=== PATIENT | male | born 1955 | race Caucasian/White ===

== ENCOUNTER 2019-01-19 17:12 | Inpatient (IN) | payer OTHER, MEDICARE ==
[~2019-01-19] VITALS: Ht 182.9 cm; Wt 95.1 kg
[2019-01-19] MEDS ORDERED: ALLO300 PO (17:48)
[2019-01-19] MEDS ORDERED: Aspirin EC81 MG PO (17:48)
[2019-01-19] MEDS ORDERED: BUPR150ERA PO (17:48)
[2019-01-19] MEDS ORDERED: CARV3.125 PO (17:49)
[2019-01-19] MEDS ORDERED: LOSA50 PO (17:49)
[2019-01-19] MEDS ORDERED: MAGNESIUM OXID500 MG PO (17:49)
[2019-01-19] MEDS ORDERED: LOVA40 PO (17:49)
[2019-01-19] MEDS ORDERED: NITR.4SL SL (17:50)
[2019-01-19] MEDS ORDERED: Aldactone100 MG PO (17:50)
[2019-01-19] MEDS ORDERED: Nicoderm Cq1 EAC1 TOP (17:50)
[2019-01-19] MEDS ORDERED: ALBU90OI INH (17:51)
[2019-01-19 18:16] LABS: Source, Urine Voided
[2019-01-19 18:19] LABS: Appearance, Urine Clear (Clear); Bilirubin, Urine Neg (Neg); Blood, Urine Neg (Neg); Color, Urine Yellow (P-Yellow); Glucose Qualitative, Urine 4+ (Neg); Ketones, Urine Neg (Neg); Leukocyte Esterase, Urine Neg (Neg); Nitrite, Urine Neg (Neg); Protein, Urine Neg (Neg); Urobilinogen, Urine NORM (Normal)
[2019-01-19 18:33] LABS: U Amphetamine Screen DETECTED; U Barbituate Screen Not Detected; U Benzodiazapine Screen Not Detected; U Buprenorphine Screen Not Detected; U Cannabinoids Screen DETECTED; U Cocaine Screen Not Detected; U Methadone Screen Not Detected; U Methamphetamine Screen DETECTED; U Opiates Screen Not Detected; U Oxycodone Screen Not Detected; U Phencyclidine Screen Not Detected; U Propoxyphene Screen Not Detected
[2019-01-19 19:04] LABS: BASOPHILS ABSOLUTE AUTO 0.01 K/mm3 (0.00-0.23); BASOPHILS PERCENT AUTO 0 % (0-2); EOSINOPHILS ABSOLUTE AUTO 0.01 K/mm3 (0.00-0.68); EOSINOPHILS PERCENT AUTO 0 % (0-6); Hematocrit 38.8 % (37.0-53.0); Hemoglobin 13.1 g/dL (13.5-17.5); IMMATURE GRAN ABSOLUTE AUTO 0.18 K/mm3 (0.00-0.10); IMMATURE GRAN PERCENT AUTO 2 % (0-1); LYMPHOCYTES ABSOLUTE AUTO 0.43 K/mm3 (0.84-5.20); LYMPHOCYTES PERCENT AUTO 4 % (21-46); MONOCYTES ABSOLUTE AUTO 0.42 K/mm3 (0.16-1.47); MONOCYTES PERCENT AUTO 4 % (4-13); Mean Corpuscular HGB 37.1 pg (26.0-34.0); Mean Corpuscular HGB Conc 33.8 g/dL (31.5-36.5); Mean Corpuscular Volume 110 fL (80-100); NEUTROPHILS ABSOLUTE AUTO 10.23 K/mm3 (1.96-9.15); NEUTROPHILS PERCENT AUTO 91 % (41-73); NRBC ABSOLUTE 0.02 K/mm3 (0.00-0.02); NRBC Auto 0.2 /100 WBC (0.0-0.2); RDW Coefficient Variation 14.4 % (11.7-14.2); RDW Standard Deviation 58.8 fL (35.1-46.3); Red Blood Cell Count 3.53 M/mm3 (4.30-5.90); White Blood Cell Count 11.28 K/mm3 (4.00-11.30)
[2019-01-19 19:12] LABS: Platelet Count 239 K/mm3 (150-400)
[2019-01-19 19:16] LABS: Ethanol (Alcohol), Blood, Med <3 mg/dL; Free Thyroxine 0.96 ng/dL (0.70-1.60)
[2019-01-19 19:19] LABS: Alanine Aminotransfer (ALT/SGP 48 U/L (12-78); Albumin, Blood 2.2 g/dL (3.4-5.0); Albumin/Globulin Ratio 0.7 (0.8-1.8); Alk Phos 213 U/L (50-136); Anion Gap 8 mmol/L (6-16); Aspartate Aminotrans (AST/SGOT 28 U/L (12-37); Bilirubin, Total 0.4 mg/dL (0.1-1.0); Blood Urea Nitrogen 18 mg/dL (8-24); Bun/Creatinine Ratio 23.7 (12.0-20.0); CO2, Blood 32 mmol/L (21-32); Calcium, Blood 8.5 mg/dL (8.5-10.1); Chloride, Blood 99 mmol/L (98-108); Creatinine, Blood 0.76 mg/dL (0.60-1.20); Globulin, Blood 3.1 g/dL (2.2-4.0); Glomerular Filtration Rate >60 (60-); Glucose, Blood 495 mg/dL (70-99); Potassium, Blood 3.1 mmol/L (3.5-5.5); Sodium, Blood 139 mmol/L (136-145); Thyroid Stimulating Hormone 0.487 uIU/mL (0.360-4.800); Total Protein, Blood 5.3 g/dL (6.4-8.2)
[2019-01-19 22:03] LABS: Troponin I 0.177 ng/mL (0.000-0.040)
--- NOTE | 2019-01-19 22:23 | NUR ---
ADMIT/ASSESSMENT PT ADMITTED TO ICU 10 VIA ER. ARRIVED VIA GURNEY. PT AWAKE AND ANSWERING QUESTIONS. TRANSFERED TO BED BY STAFF WITH SLIDER SHEET. LUNGS DECREASED THROUGHOUT ON 2 LITERS O2 VIA NC. HEART RATE REGULAR. BP HYPERTENSIVE. ANASARCA NOTED WITH LOWER EXT RED AND WARM TO TOUCH. WEEPING NOTED TO LEFT LOWER EXT. WOUND NOTED TO RIGHT ABD. SEE WOUND PHOTOS. IV 18G TO RIGHT AC AND 20G TO LEFT AC SALINE LOCKED. INSULIN GTT TO BE STARTED. PT ANSWERING QUESTIONS, VOICE QUIET.
[2019-01-20 00:31] LABS: International Normalized Ratio 0.87; Prothrombin Time Results 9.3 Sec (9.7-11.5)
[2019-01-20 00:43] LABS: PCO2 Arterial 44.8 mmHg (35-45); PO2 Arterial 82.6 mmHg (80-100); pH Blood Arterial 7.54 (7.35-7.45)
--- NOTE | 2019-01-20 00:43 | NUR ---
HTN BP 175/109 MAP 139 HEART RATE 90, PT MED WITH HYDRALAZINE 10 MG
--- NOTE | 2019-01-20 02:06 | NUR ---
HTN/CALL TO MD DR JOHNSON NOTIFIED REGARDING BP 187/124 WITH HEART RATE 98. RECEIVED ORDERS FOR LABETOLOL AND METOPROLOL.
[2019-01-20 02:09] LABS: Adenovirus Not Detected (NOT DETECT); Coronavirus 229E Not Detected (NOT DETECT); Coronavirus HKU1 Not Detected (NOT DETECT); Coronavirus NL63 Not Detected (NOT DETECT)
[2019-01-20 02:10] LABS: Bordetella pertussis Not Detected (NOT DETECT); Chlamydophila pneumoniae Not Detected (NOT DETECT); Coronavirus OC43 Not Detected (NOT DETECT); Human Metapneumovirus Not Detected (NOT DETECT); Human Rhinovirus/Enterovirus Not Detected (NOT DETECT); Influenza A Not Detected (NOT DETECT); Influenza A/2009-H1 Not Detected (NOT DETECT); Influenza A/H1 Not Detected (NOT DETECT); Influenza A/H3 Not Detected (NOT DETECT); Influenza B Not Detected (NOT DETECT); Mycoplasma pneumoniae Not Detected (NOT DETECT); Parainfluenza Virus 1 Not Detected (NOT DETECT); Parainfluenza Virus 2 Not Detected (NOT DETECT); Parainfluenza Virus 3 Not Detected (NOT DETECT); Parainfluenza Virus 4 Not Detected (NOT DETECT); Respiratory Syncytial Virus Not Detected (NOT DETECT)
--- NOTE | 2019-01-20 04:29 | NUR ---
CALL TO MD CALL TO DR JOHNSON REGARDING INCREASED SOB, LUNGS WITH EXP WHEEZES/CRACKLES AND INCREASED WORK OF BREATHING. RECEIVED ORDER FOR LASIX ONE TIME
[2019-01-20 04:53] LABS: Hematocrit 40.4 % (37.0-53.0); Hemoglobin 13.7 g/dL (13.5-17.5); Mean Corpuscular HGB 37.4 pg (26.0-34.0); Mean Corpuscular HGB Conc 33.9 g/dL (31.5-36.5); Mean Corpuscular Volume 110 fL (80-100); Mean Platelet Volume 10.8 fL (9.1-12.4); NRBC ABSOLUTE 0.02 K/mm3 (0.00-0.02); NRBC Auto 0.2 /100 WBC (0.0-0.2); Platelet Count 182 K/mm3 (150-400); RDW Coefficient Variation 14.1 % (11.7-14.2); RDW Standard Deviation 57.7 fL (35.1-46.3); Red Blood Cell Count 3.66 M/mm3 (4.30-5.90); White Blood Cell Count 13.06 K/mm3 (4.00-11.30)
--- NOTE | 2019-01-20 05:01 | NUR ---
CONDOM CATH APPLIED AND PT MED WITH LASIX 60 MG IV. ATTENDS CHANGED. PT INCONT OF URINE
[2019-01-20 05:25] LABS: Alanine Aminotransfer (ALT/SGP 43 U/L (12-78); Albumin, Blood 2.3 g/dL (3.4-5.0); Albumin/Globulin Ratio 0.7 (0.8-1.8); Alk Phos 168 U/L (50-136); Anion Gap 8 mmol/L (6-16); Aspartate Aminotrans (AST/SGOT 25 U/L (12-37); Bilirubin, Total 0.3 mg/dL (0.1-1.0); Blood Urea Nitrogen 17 mg/dL (8-24); Bun/Creatinine Ratio 23.4 (12.0-20.0); CO2, Blood 33 mmol/L (21-32); CPK Creatine Kinase 46 U/L (39-308); Calcium, Blood 8.2 mg/dL (8.5-10.1); Chloride, Blood 101 mmol/L (98-108); Creatinine, Blood 0.73 mg/dL (0.60-1.20); Globulin, Blood 3.2 g/dL (2.2-4.0); Glomerular Filtration Rate >60 (60-); Glucose, Blood 286 mg/dL (70-99); Potassium, Blood 3.4 mmol/L (3.5-5.5); Sodium, Blood 142 mmol/L (136-145); Total Protein, Blood 5.5 g/dL (6.4-8.2)
--- NOTE | 2019-01-20 06:35 | NUR ---
SHIFT SUMMARY PT ADMITTED TO ICU 10 VIA ER. PT STARTED ON INSULIN GTT DUE TO BLOOD GLUCOSE IN THE 400'S. CURRENTLY INSULIN UP TO 8 UNITS/HR DUE TO BLOOD GLUCOSE UP TO 300. PT MED WITH HYDRALAZINE, LABETOLOL, AND METOPROLOL DUE TO HTN. LUNGS WITH EXP WHEEZES AND CRACKLES AND PT C/O SOB WHILE ON 2 LITERS O2 VIA NC. MED WITH LASIX 60 MG. CONDOM CATH PLACED. ANASARCA NOTED. WOUNDS TO RIGHT ABD AND LEFT LOWER LEG WITH FOAM DRSG ON. PT TAKING ICE CHIPS. REPORT TO ON COMING NURSE
--- NOTE | 2019-01-20 07:15 | NUR ---
BEGINNING OF SHIFT Assumed care of pt at 0700. Report received from Lorna LAGUNAS. Pt on 2 LPM NC. States he does not typically wear O2 at home. SpO2 97-99%. Pt on insulin drip at 8 units/hr. Sinus rhythm per monitor with occasional PVCs. 4+ edema noted to all extremities. Condom catheter in place.
--- NOTE | 2019-01-20 08:58 | NUR ---
CALL PLACED TO DR IBARRA Asked provider about long acting insulin as there is none ordered for the patient. New orders to be entered by provider. Pharmacist, Abram, asked this RN to clarify levaquin and see if it may be discontinued as it adds no additional coverage considering patient is on vancomycin and cefipime. New orders given.
--- NOTE | 2019-01-20 09:00 | NUR ---
DECISION MAKER This RN asks pt who he would like to make decisions for him if he is unable to make his own healthcare decisions. Pt states he would like his daughter, Laina, to make decisions for him if he is unable to do so. This RN inquired where Laina lives, pt states she may live in [place], "I think". Pt states he is not close with his daughter because "She is mad at me for something." This RN inquires why daughter is mad at him and he states "I don't know."
--- NOTE | 2019-01-20 09:25 | NUR ---
STAT ABG Called Dr Sultana to notify provider that pt has had a mentation change. Pt is A&O x 1. Forgets that he is in [place] instead of [place]. Pt has trouble stating correct month and year. After about 5 minutes about, pt guesses March 2018. This RN notified RT Jaki of stat ABG
--- NOTE | 2019-01-20 09:45 | NUR ---
DR IBARRA AT BEDSIDE Plans to DC insulin drip one hour after giving subcutaneous insulin. Pt to be on low sliding scale. Provider stated that indwelling mroales may be placed for strict I&O. BiPAP disucussed with pt. Pt agreeable to try it. Pt tolerating BiPAP well at this time. Discussed if tourist information officer consultation would be appropriate. No orders for tourist information officer consultation at this time.
[2019-01-20 09:51] LABS: PCO2 Arterial 41.5 mmHg (35-45); PO2 Arterial 57.2 mmHg (80-100); pH Blood Arterial 7.59 (7.35-7.45)
--- NOTE | 2019-01-20 11:00 | NUR ---
UPDATE Cardiology consult notified. Dr Comer states plan to see pt soon. Pt has not had any active chest pain. Hardy catheter placed. Pt educated on reason for insertion. Pt nods head to indicate understanding. Pt more alert than previously noted. JANNETH Middleton in room to place powerglide midline catheter.
--- NOTE | 2019-01-20 11:08 | NUR ---
ECHOCARDIOGRAM COMPLETED
--- NOTE | 2019-01-20 11:18 | NUR ---
UPDATE Call placed to Dr Sultana to notify provider of difficulty obtaining IV access. IV placed by charge nurse no longer patent. Midline RN unable to successfully place midline. Provider states PICC may be placed. Provider states pt may also have diet after cardiology consults.
--- NOTE | 2019-01-20 14:55 | NUR ---
UPDATE / RECORDS REQUEST Pt refuses to keep BiPAP on. Pt has worn BiPAP for total of 1.5 hours. Pt resting in bed at this time. Hydralyzine given for hypertension. Any existing echocardiogram and angiogram reports requested from [facility].
--- NOTE | 2019-01-20 16:42 | NUR ---
Spiritual Care inital visit: Mr. Rock is angry and irrational. "I don't want to live like this." "I just want to go to sleep and not wake up." He beleives he has been told he cannot have anything to drink and is quite angry about this. His conversation is peppered with profanity and he had little use for me since I could not provide a beverage. He says he has a dtr, but lives alone. I was tasked to speak to him regarding ACP. However he does not appear to be able to understand the implications of code status, MPOA, or medical heroics. Director Of Assessment services will remain available.
--- NOTE | 2019-01-20 16:52 | NUR ---
DR BELL IN TO SEE PT Provider at bedside 1600. Medical records from [facility] reviewed by provider. Discussed hypertension, hypokalemia, and mentation. Provider states she will discuss case with Dr Sultana. New orders received from Dr Sultana for head CT. This RN spoke to batch room technician, states they will send transporter MCKAYLA.
[2019-01-20 16:55] LABS: Source, Urine Catheter
[2019-01-20 17:08] LABS: Bilirubin, Urine Neg (Neg); Blood, Urine 1+ (Neg); Glucose Qualitative, Urine Neg (Neg); Ketones, Urine Neg (Neg); Leukocyte Esterase, Urine Neg (Neg); Nitrite, Urine Neg (Neg); Protein, Urine Neg (Neg); Specific Gravity, Urine 1.005 (1.003-1.022); Urobilinogen, Urine NORM (Normal)
[2019-01-20 17:40] LABS: Appearance, Urine Clear (Clear); Color, Urine Yellow (P-Yellow)
--- NOTE | 2019-01-20 17:45 | NUR ---
UPDATE: SOCIAL SERVICE AND PALLIATIVE CARE CONSULTS PLACED Transporter at bedside 1700. Pt adamantly refused head CT. Pt upset, yelling profanities. States he would like to speak to his daughter. This RN dialed daughter's phone number for pt. Pt spoke to daughter and then daughter, Laina, requested to speak to this RN. Update provided. When asked about pt's current living situation, she states that on Thursday, she visited pt because he told her he was "stuck on a boat". Upon visiting his house, she states he was naked, sitting on a piece of wood because he no longer has a mattress. She states she is concerned about pt's ability to take care of himself, despite visits from home health nurse. She states that he typically drinks several "fifths" of liquor per week. He uses alcohol daily. She states that pt may not have had any alcohol since his previous hospitalization, two weeks ago. She states that the people that supply alcohol to the patient stated they quit supplying him with alcohol. This RN inquired about recreational drug use, she states she isn't sure. She acknowledges that during previous hospitalizations, pt has tested positive for amphetamines previously and she believes this was before he was prescribed bupropion. She states that she does not know much about the patient as she sees him "once a month to take him grocery shopping". She states the patient has a son, who he has not seen in over 10 years. Information about substance abuse given to Dr Sultana. No orders given for CIWA, as pt is not showing signs of withdrawal at this time. Will continue to assess for withdrawal. Pt's daughter states that to her knowledge, pt does not have an advanced directive or POLST. Pt claims to be [facility]. This RN contacted [facility] and [facility] to inquire about advanced directive or POLST; both facilities stated that pt is not in their system. She states that pt has previously verbalized that he would not want to be intubated and he has been DNR during a previous hospitalization, but full code during others. Case discussed with Lorna LAGUNAS of palliative care. States she will speak to daughter. Pt remains full code at this time.
[2019-01-20 17:47] LABS: Red Blood Cells, Urine 0-2 /hpf (0-2); White Blood Cells, Urine Rare /hpf (0-5)
[2019-01-20 17:48] LABS: Bacteria Few /hpf; Hyaline Casts 0-2 /lpf (0-2); Squamous Epithelial Cells Few /hpf (Few)
--- NOTE | 2019-01-20 17:51 | NUR ---
Spiritual Care note: T/C to pt's dtr, Laina [phone]. She states that her dad has been telling her that he is unhappy in his life, tired of being sick, and wishes he could . She also states that he has become more and more confused and unable to care for himself. If pt does not clear-up mentally, Laina would like him placed somewhere. She also asked that we make him a DNR. I informed her that without documentation stating his wishes, pt will remain Full Code until he can speak for himself, or if he physically declines, or it becomes clear that he will not regain mental clarity. Laina understood. She will contact [facility] to see if her dad has ACP on file.
--- NOTE | 2019-01-20 18:36 | NUR ---
SUMMARY At this time, pt is A&O x 2. Remains on 2 LPM NC. Attempted to titrate to room air, however pt unable to maintain SpO2 90% or greater. Pt wore BiPAP for about 1.5 hours today and has refused BiPAP since. Hardy catheter in place for strict I&O. Pt has had over 4 L of output this shift. SR per monitor. Few PVCs noted. Pt repeatedly verbalizing that he wants "a natural ". Franklin RN from palliative care speaking with patient at this time. This RN updated Dr Sultana about conversations had with patient. Provider stated pt may be DNR if he states that is what he wants.
--- NOTE | 2019-01-20 18:59 | NUR ---
Visited with Pt this evening. Pt is A&OX2 and reports arthritis pain in bilateral hands. When asked place Pt states he is at [facility] in [place]. Asked reason for hospital stay and Pt could not answer. Pt does respond appropriate to current year. Pt is nonsensical intermittently and approriate in other moments. Difficult to understand speech due to slurring. Listened as Pt expresses frustration with his life and attempts to hold back tears. Offered emootional support and validated concerns. Pt appears to be frustrated with his life. Pt reports that he will not wear the BIPAP. Educated on consequences of not wearing BIPAP if needed. Pt's appears to understand consequences but still is questionable. When asked why he states "I'm not worthy". Pt appears to have pysch/soc issues and may benefit from counseling when mentation clears up. Discussion was made about ability to care for himself and Pt agrees he is unable to care for himself. Pt reports feeling tired and wants to sleep. He is agreeable for palliative care to F/U. Spoke with bedside nurse Jamilah and discussed case. Palliative Care will remain available.
--- NOTE | 2019-01-20 21:20 | NUR ---
START OF SHIFT: REPORT FROM LINDA LAGUNAS. PT EATING EVENING MEAL. FRIEND AT BEDSIDE. PT AGREED TO CT. CT AVAILABLE AT 2099. PT TAKEN AT [address] AT 2121. PT STATED IT WAS BETTER THAN HE THOUGHT. PT IN ROOM CURRENTLY, FALLIN ASLEEP. VSS.
--- NOTE | 2019-01-21 00:09 | NUR ---
V-TACH: PT WAS SLEEPING. HAD A RUN OF 40-BEAT V-TACH. PT STATED HE WOKE UP SUDDENLY BUT IS DENYING CP NOR SOB. PT CURRENTLY WATHCING TV. DR. KWONG NOTIFIED. NO NEW ORDERS AT THIS TIME. CONTINUE MONITORING PT.
--- NOTE | 2019-01-21 00:38 | NUR ---
PT REQUEST TO, "SIT UP STRAIGHT". PT REPOSITIONED INTO HIGH FOWLERS. PT STATED THAT HIS EYES ARE BLURRY AND STATED THEY HAVE BEEN ALL DAY TODAY. PT ABLE TO COUNT CORRECTLY FINGERS HELD UP 8 FEET AWAY. JUDSON, PT TRACKING WNL. PT ASKED IF HE NOTICED IF HIS FRIEND MARCOS WAS BLURRY TODAY, PT STATED, "THAT GIRL IS ALWAYS BLURRY". PT STATED, "THEY MAY HAVE BEEN BLURRY FOR A LONG TIME BUT I'M JUST NOW NOTICING. WILL CONTINUE TO MONITOR. PT WITH CALL LIGHT IN HAND WATCHING TV.
--- NOTE | 2019-01-21 02:02 | NUR ---
PT C/O INSOMNIA. DESCRIBES IT A FEELING OF PASSING OUT AND WAKING UP. PT STATED HE WAKES UP SUDDENLY WITH FEAR AND IS SEEING FLASHING LIGHTS. DISCUSSED WITH PT HIS BUPROPION INTAKE AND PT STATED THAT HE HAS BEEN TAKING IT EVERY DAY AND HAS HIS BOTTLE AT HOME. PT STATED HAS NOT HAD HIS BUPROPIO FOR 3-4 MAYBE MORE DAYS. CALL OUT TO HOSPITALIST.
--- NOTE | 2019-01-21 02:14 | NUR ---
CALL BACK FROM DR. KWONG. BUPROPION WAS NOT ORDERED ON ADMIT R/T PT BEING LETHARGIC. NEW ORDERS TO RESTART BUPROPION AND DIPHENHYDRAMINE 25mg AT BEDTIME FOR SLEEP.
--- NOTE | 2019-01-21 03:19 | NUR ---
PT FELL ASLEEP PRIOR TO BUPROPRION "NOW" DOSE AND BENEDRYL AVAILABLE. WILL ADMINISTER WHEN PT AWAKENS. VSS.
[2019-01-21 04:44] LABS: BASOPHILS ABSOLUTE AUTO 0.02 K/mm3 (0.00-0.23); BASOPHILS PERCENT AUTO 0 % (0-2); EOSINOPHILS PERCENT AUTO 0 % (0-6); Hematocrit 39.2 % (37.0-53.0); Hemoglobin 13.3 g/dL (13.5-17.5); IMMATURE GRAN ABSOLUTE AUTO 0.27 K/mm3 (0.00-0.10); IMMATURE GRAN PERCENT AUTO 2 % (0-1); LYMPHOCYTES ABSOLUTE AUTO 0.48 K/mm3 (0.84-5.20); LYMPHOCYTES PERCENT AUTO 4 % (21-46); MONOCYTES ABSOLUTE AUTO 0.34 K/mm3 (0.16-1.47); MONOCYTES PERCENT AUTO 3 % (4-13); Mean Corpuscular HGB 37.8 pg (26.0-34.0); Mean Corpuscular HGB Conc 33.9 g/dL (31.5-36.5); Mean Corpuscular Volume 111 fL (80-100); Mean Platelet Volume 10.3 fL (9.1-12.4); NEUTROPHILS ABSOLUTE AUTO 12.31 K/mm3 (1.96-9.15); NEUTROPHILS PERCENT AUTO 92 % (41-73); NRBC ABSOLUTE 0.04 K/mm3 (0.00-0.02); NRBC Auto 0.3 /100 WBC (0.0-0.2); Platelet Count 215 K/mm3 (150-400); RDW Standard Deviation 57.4 fL (35.1-46.3); Red Blood Cell Count 3.52 M/mm3 (4.30-5.90); White Blood Cell Count 13.42 K/mm3 (4.00-11.30)
[2019-01-21 05:04] LABS: Alanine Aminotransfer (ALT/SGP 40 U/L (12-78); Albumin, Blood 2.2 g/dL (3.4-5.0); Albumin/Globulin Ratio 0.7 (0.8-1.8); Alk Phos 121 U/L (50-136); Anion Gap 4 mmol/L (6-16); Aspartate Aminotrans (AST/SGOT 18 U/L (12-37); Bilirubin, Total 0.4 mg/dL (0.1-1.0); Blood Urea Nitrogen 25 mg/dL (8-24); Bun/Creatinine Ratio 29.1 (12.0-20.0); CHOL/HDL RATIO 2.2; CO2, Blood 38 mmol/L (21-32); Calcium, Blood 7.5 mg/dL (8.5-10.1); Chloride, Blood 97 mmol/L (98-108); Cholesterol 117 mg/dL (50-200); Creatinine, Blood 0.86 mg/dL (0.60-1.20); Globulin, Blood 3.2 g/dL (2.2-4.0); Glomerular Filtration Rate >60 (60-); Glucose, Blood 247 mg/dL (70-99); HDL Cholesterol 52 mg/dL (>39); LDL/HDL RATIO 0.8; Low Density Lipoprotein Chol 39 mg/dL (0-110); Magnesium, Blood 1.8 mg/dL (1.6-2.4); Potassium, Blood 2.8 mmol/L (3.5-5.5); Sodium, Blood 139 mmol/L (136-145); Total Protein, Blood 5.4 g/dL (6.4-8.2); Triglycerides 130 mg/dL (30-160); Very Low Density Lipoprot Chol 26 mg/dL (6-32)
--- NOTE | 2019-01-21 05:54 | NUR ---
UPDATE: PT AWAKENED APPRX AT 0400 STATING, "I MUST HAVE SLEPT GOOD". PT GIVEN AM DOSE BUPROVION. VSS. DR. ARENAS NOTIFIED AND GIVEN LAB VALUES. NEW ORDERS FOR KCL IVPB 40 mEq AND Mg+ 2g WHICH HAVE BEEN STARTED. PT WITH SEVERAL QUESTIONS RE: MANAGING HIS DIABETES AND POSSIBLY GOING TO A, "REHAB FACIITY". PT VOICED CONCERN OF NOT BEING ABLE TO REMEMBER ANYTHING. PT ENCOURAGED TO LISTEN CAREFULLY WHEN BEGING GIVEN HIS DC INSTRUCTIONS. PT CURRENTLY DOSING ON AND OFF WATCHING TV. WILL CONTINUE TO MONITOR AND WILL REPORT OFF TO DAY RN.
--- NOTE | 2019-01-21 07:55 | NUR ---
ASSUMED CARE: REPORT RECEIVED FROM KATHY Goyal RN. ASSUMED CARE OF THIS PT AT APPROX 0700. ON ASSESSMENT, THE PT IS RESTING QUIETLY. HE AWAKENS EASILY, IS A&O TO SELF, PLACE & FOLLOWING DIRECTION. HE IS FORGETFUL REGARDING THE CIRCUMSTANCES SURROUNDING HIS ADMISSION. LS ARE CLEAR, DIM IN BASES. O2 SATS > 90% ON 2L NC. PT DOES NOT WEAR O2 AT HOME. MONITOR SHOWS SR W/ HR 70-80s. HTN, MEDS PER EMAR. PT HAS NO GI COMPLAINTS, STS BEING HUNGRY & IS TOLERATING PO INTAKE WELL. CACERES CATH REMAINS IN PLACE FOR STRICT I&O DURING DIURESIS, PATENT/ DRAINING. PT STS EDEMA IS "LOOKING BETTER," PITTING EDEMA NOTED TO ALL EXT. WILL CONTINUE TO MONITOR & UPDATE NEEDED.
--- NOTE | 2019-01-21 14:19 | NUR ---
DR RUBIO: PROVIDER AT BEDSIDE TO SEE PT. HE IS VERY DROWSY & DOES NOT AWAKEN COMPLETELY TO HER VISIT. PT's CARDIAC MEDS HAVE BEEN DISCUSSED REGINALDO CARRASQUILLO, INDICATES THAT METOPROLOL SUCCINATE IS GENERALLY USED FOR PT's W/ HF, VERSUS METOPROLOL TARTRATE THAT THE PT IS RECEIVING. DR RUBIO STS SHE WILL MAKE CHANGES TO PT's CARDIAC MEDS & THAT THE PT IS APPROPRIATE TO BE MED W/ TELE STATUS. WILL CONTINUE TO MONITOR & UPDATE NEEDED.
--- NOTE | 2019-01-21 18:36 | NUR ---
DR RUBIO / SHIFT SUMMARY: CALL TO PROVIDER TO NOTIFY HER THAT PT's CBG READINGS HAVE CONTINUED TO INCREASE T/O SHIFT DESPITE LSS INSULIN COVERAGE. PROVIDER HAS PLACED ORDERS TO INCREASE LANTUS DOSE & INCREASE SS COVERAGE TO PING. NO ACUTE CHANGES SINCE ASSUMING CARE. PT REMAINS A&O TO SELF, FAMILY & FOLLOWING DIRECTION. FORGETFUL TO LOCATION & TIME. LS ARE DIM IN BASES, O2 SATS > 92% ON 2L NC. MONITOR SHOWS SR W/ HR 70-80s, HTN PERSISTS BUT IMPROVED OVERALL. PT HAS SAT UP IN CHAIR FOR APPROX 2 HRS THIS EVENING, STS FEELING FATIGUED. TX W/ FWW, GAIT BELT & 2 STAFF ASSIST. NO GI COMPLAINTS, PT HAS GOOD APPETITE. CACERES PATENT/ DRAINING. SKIN OVERALL CDI. WILL CONTINUE TO MONITOR & REPORT OFF TO ONCOMING RN.
--- NOTE | 2019-01-21 22:22 | NUR ---
ASSUMED CARE OF PT, REPORT RCV'D FROM JANNETH HENDRICKSON. PT SLEEPING, AWAKES TO VERBAL STIMULI. PT ALERT AND ORIENTED X4, COOPERATIVE WITH CARE. PT CURRENTLY ON 2L NC WITH SATS IN THE LOW-MID 90'S. PT REFUSES BIPAP D/T HX OF PTSD AND CLAUSTROPHOBIA. PT EDEMETOUS BUE 3+ R>L AND BLE, PER PT AND DAYSHIFT NURSE EDEMA IS MUCH IMPROVED. PT'S ABDOMEN SEVERELY DISTENDED AND FIRM. PT DENIES PAIN WITH PALPATION AND STATES DISTENTION IS "NORMAL". WOUND ON RIGHT ABDOMEN UPON ADMISSION, PT DENIES NEEDS AT THIS TIME. SEE FULL SHIFT ASSESSMENT.
[2019-01-21 23:50] LABS: Vancomycin, Trough 20.7 ug/mL (5.0-10.0)
[2019-01-22 05:55] LABS: BASOPHILS ABSOLUTE AUTO 0.02 K/mm3 (0.00-0.23); BASOPHILS PERCENT AUTO 0 % (0-2); EOSINOPHILS PERCENT AUTO 0 % (0-6); Hematocrit 38.7 % (37.0-53.0); Hemoglobin 13.3 g/dL (13.5-17.5); IMMATURE GRAN ABSOLUTE AUTO 0.34 K/mm3 (0.00-0.10); IMMATURE GRAN PERCENT AUTO 3 % (0-1); LYMPHOCYTES ABSOLUTE AUTO 0.54 K/mm3 (0.84-5.20); LYMPHOCYTES PERCENT AUTO 5 % (21-46); MONOCYTES PERCENT AUTO 4 % (4-13); Mean Corpuscular HGB 37.9 pg (26.0-34.0); Mean Corpuscular HGB Conc 34.4 g/dL (31.5-36.5); Mean Corpuscular Volume 110 fL (80-100); Mean Platelet Volume 10.5 fL (9.1-12.4); NEUTROPHILS PERCENT AUTO 88 % (41-73); NRBC ABSOLUTE 0.04 K/mm3 (0.00-0.02); NRBC Auto 0.3 /100 WBC (0.0-0.2); Platelet Count 241 K/mm3 (150-400); RDW Coefficient Variation 13.8 % (11.7-14.2); RDW Standard Deviation 55.8 fL (35.1-46.3); Red Blood Cell Count 3.51 M/mm3 (4.30-5.90)
--- NOTE | 2019-01-22 05:56 | NUR ---
SHIFT SUMMARY PT SLEPT MAJORITY OF THE NIGHT WITH NO COMPLAINTS. AT 0530 PT BEGAN COMPLAINING OF FEELING "DIZZY" AND "SHORT OF BREATH", PER CHARGE NURSE, PT HAD SIMILAR EXPERIENCE DURING THE PREVIOUS NIGHTSHIFT WITH NO IDENTIFIABLE CAUSE. PT'S O2 SATS 95% ON ROOM AIR, LUNG SOUNDS CLEAR T/O WITH DIM BASES-UNCHANGED SINCE BEGINNING OF SHIFT. BP 147/80, RR 16-20, AFEBRILE . CBG 348. 1200 ML CLEAR YELLOW URINARY OUTPUT WITH 418 IN, PT REMAINS -1583 FLUID BALANCE. WILL REPORT TO DAYSHIFT NURSE.
[2019-01-22 06:15] LABS: Albumin, Blood 2.3 g/dL (3.4-5.0); Anion Gap 8 mmol/L (6-16); Blood Urea Nitrogen 31 mg/dL (8-24); Bun/Creatinine Ratio 38.5 (12.0-20.0); CO2, Blood 34 mmol/L (21-32); Calcium, Blood 7.6 mg/dL (8.5-10.1); Chloride, Blood 97 mmol/L (98-108); Creatinine, Blood 0.81 mg/dL (0.60-1.20); Glomerular Filtration Rate >60 (60-); Glucose, Blood 322 mg/dL (70-99); Potassium, Blood 2.7 mmol/L (3.5-5.5); Sodium, Blood 139 mmol/L (136-145)
--- NOTE | 2019-01-22 06:39 | NUR ---
PT APPEARS TEARY AND EMOTIONAL. PT REPORTS THAT HE IS STILL FEELING SOB. WHEN ASKED IF HE DRINKS ALCOHOL AT HOME PT REPLIED "I WAS THINKING ABOUT THAT", PT REPORTS THAT HE DRINKS "ABOUT A HALF OF A FIFTH OF WHISKEY" DAILY. WILL CALL HOSPITALIST AND INITIATE CIWA MONITORING.
--- NOTE | 2019-01-22 08:00 | NUR ---
INITIAL ASSESSMENT PATIENT ALERT AND ORIENTED X 4, AFEBRILE. PATIENT VERY ANXIOUS, AGITATED, DIAPHORETIC, RESTLESS UPON FIRST COMING INTO THE ROOM. PATIENT DRINKS A [address]TH [address] DAILY[address] RUBIO INFORMED AND CIWA PROTOCOL INITIATED. PATIENT GIVEN PRN ATIVAN AND LIBRUIM. PATIENT ALREADY MUCH MORE RELAXED AND CALM. PATIENT DOES HAVE GARBLED SPEECH. PATIENT CIWA SCORE OF 16. PATIENT DOES NOT HAVE ANY COMPLAINTS OF PAIN AT THIS TIME. PATIENT DECREASED FROM 2 L NC TO RA AND REMAINS SATTING 90% AND GREATER ON RA. LUNGS CLEAR IN RUL, DIMINISHED IN RML AND RLL. KATIE COARSE WITH EXPIRATORY WHEEZE, LLL COARSE TO AUSCULTATION. PATIENT DYSPNEIC ON EXERTION. PATIENT IN SR WITH PVCS AND PROLONGED QT. HR IN THE 70S. SBP 160S TO 170S. ABDOMEN SEVERELY DISTENDED AND FIRM- PATIENT REPORTS THIS NORMAL FOR HIM. NORMOACTIVE BS NOTED. LAST BM DOCUMENTED TWO DAYS AGO. PATIENT HUNGRY WHENEVER HE IS AWAKE. CACERES IN PLACE, DRAINING YELLOW COLORED URINE WITH SEDIMENT NOTED. ANASARCA NOTED. RUE AND ABDOMEN WEEPING. WOUND TO R ABDOMEN. SKIN IS FLUSHED AND KRYSTIN. NS TKO. BED LOW, CALL LIGHT IN REACH. WILL CONTINUE TO MONITOR PATIENT FREQUENTLY THROUGHOUT SHIFT.
[2019-01-22 08:51] LABS: Vancomycin, Trough 27.2 ug/mL (5.0-10.0)
--- NOTE | 2019-01-22 11:05 | NUR ---
DR. RUBIO UPDATED THIS AM ON PATIENT ETOH WITHDRAWAL SYMPTOMS- OF PATIENT BECOMING VERY ANXIOUS, AGITATED, TREMORS FELT WHEN TOUCHED, THAT PATIENT DIAPHORETIC. INFORMED THAT PATIENT STATES HE DRINKS A 5TH OF WHISKEY DAILY. INFORMED THAT PATIENT HAS BEEN HYPERTENSIVE. ORDERS PLACED FOR CIWA PROTOCOL. DR. RUBIO IN UNIT TO SEE PATIENT AT THIS TIME. INFORMED THAT PATIENT'S BLOOD SUGARS HAVE BEEN IN THE 300S DESPITE BEING ON LONG ACTING INSULIN AND PING INSULIN. ORDERS RECEIVED TO INCREASE TO HSS INSULIN. DR. DEE CORTEZ THIS AM FOR POTASSIUM LEVEL OF 2.7.
--- NOTE | 2019-01-22 12:00 | NUR ---
PATIENT HAS BEEN SLEEPING ON AND OFF SINCE RECEIVING PRN ATIVAN AND LIBRIUM THIS AM. PATIENT DID WAKE TO SIT UP AND EAT SOME LUNCH. CIWA SCORE IS CURRENTLY 5. BLOOD SUGAR OF 303- COVERAGE GIVEN. HR IN THE 70S. SBP IN THE 150S. PATIENT REMAINS SATTING 90% AND GREATER ON RA. PATIENT HAS NO COMPLAINTS AT THIS TIME. NO OTHER ACUTE CHANGES TO NOTE ON AT THIS TIME. WILL CONTINUE TO MONITOR.
[2019-01-22 14:33] LABS: Vancomycin, Trough 18.7 ug/mL (5.0-10.0)
--- NOTE | 2019-01-22 16:16 | NUR ---
PATIENT SLEEPING SOUNDLY UPON ENTERING ROOM. PATIENT HAS NO COMPLAINTS. PATIENT ALERT AND ORIENTED. CIWA SCORE OF 4. HR IN THE 70S. SBP IN THE 150S. BLOOD SUGAR 336- COVERAGE GIVEN. NO OTHER ACUTE CHANGES TO NOTE ON AT THIS TIME. WILL CONTINUE TO MONITOR.
--- NOTE | 2019-01-22 16:20 | NUR ---
REPORT GIVEN TO ASSUMING NURSE, KAMRAN EVANS.
--- NOTE | 2019-01-22 17:34 | NUR ---
ASSISTED PT TO SIT UP IN BED. AWAKE, ALERT, COOPERATIVE. STATES WORRIED ABOUT HIS HEALTH "I DIDN'T KNOW I HAD SO MANY PROBLEMS". EXPLAINED PLAN OF CARE, AGREEABLE. NSR, BP STABLE. ABLE TO FEED SELF DINNER. UO ADEQUATE VIA CACERES. SKIN THICKENED FEET, REDDENED LEGS, DRY. DENIES PAIN
--- NOTE | 2019-01-22 18:53 | NUR ---
PT ATE 100% DINNER, NOW ASLEEP WITHOUT COMPLAINTS. VSS. CONTINUE TO MONITOR
--- NOTE | 2019-01-22 21:57 | NUR ---
ASSUMED CARE OF PT, REPORT RCV'D FROM JANNETH ANDREW. PT ALERT TO VERBAL STIMULI, ORIENTED TO SELF, SITUATION, LOCATION "", SLOW TO RESPOND ON DATE BUT KNOWS ITS "". PT'S SPEECH IS GARBLED BUT UNDERSTANDABLE. PT EMOTIONAL AND REPEATING "I'M OUT OF MY COMFORT ZONE, I NEED SOMETHING", PT VISIBLY ANXIOUS THRASHING IN BED. CIWA 29, MEDICATED WITH LIBRIUM AND ATIVAN PER [facility] PROTOCOL. PT CURRENTLY RESTING COMFORTABLY. BED ALARM ON, BED IN LOW LOCKED POSITION, CURTAIN/DOOR OPEN. SEE FULL SHIFT ASSESSMENT.
--- NOTE | 2019-01-23 00:10 | NUR ---
MIDSHIFT ASSESSMENT PT SLEPT WELL UNITL 2330 WHEN HE BEGAN PULLING HIS GOWN OFF, PULLING LEADS OFF AND TRYING TO PULL CATHETER OUT. PT REORIENTED, LEADS REPLACED. CIWA 20, MEDICATED WITH ATIVAN PER [facility] PROTOCOL.
--- NOTE | 2019-01-23 04:21 | NUR ---
PT AGITATED, MUMBLING INCOHERENTLY, ATTEMPTING TO CRAWL OUT OF BED, PULLING ON CACERES, RIPPED IV TUBING APART, ATTEMPTING TO PULL PICC LINE OUT, DISROBING, PULLING SHEETS OFF. CALL TO HOSPITALIST FOR PRECEDEX GTT, CHANGED PT TO ICU STATUS. PT PLACED IN BILATERAL SOFT WRIST RESTRAINTS.
--- NOTE | 2019-01-23 06:30 | NUR ---
SHIFT SUMMARY PT ON PRECEDEX GTT TITRATED FOR EFFECT, CURRENTLY 0.4 MCG/KG/HR. PT CONTINUES TO BE AGITATED, PULLING AT LINES/TUBES/CACERES, ATTEMPTING TO GET OUT OF BED, GROANING/MUMBLING, AND PULLING ON RESTRAINTS. CIWA 20-29 OVERNIGHT. PT TREATED WITH LABETOLOL AND HYDRALAZINE TO MAINTAIN SBP<160. VSS T/O SHIFT, PT CURRENTLY ON 2LNC TO MAINTAIN O2>90%. PLEASE SEE PREVIOUS NOTES FROM THIS SHIFT. WILL REPORT TO DAYSHIFT NURSE.
[2019-01-23 06:37] LABS: BASOPHILS ABSOLUTE AUTO 0.01 K/mm3 (0.00-0.23); BASOPHILS PERCENT AUTO 0 % (0-2); EOSINOPHILS PERCENT AUTO 0 % (0-6); Hematocrit 37.2 % (37.0-53.0); Hemoglobin 12.8 g/dL (13.5-17.5); IMMATURE GRAN ABSOLUTE AUTO 0.24 K/mm3 (0.00-0.10); IMMATURE GRAN PERCENT AUTO 2 % (0-1); LYMPHOCYTES ABSOLUTE AUTO 0.43 K/mm3 (0.84-5.20); LYMPHOCYTES PERCENT AUTO 4 % (21-46); MONOCYTES ABSOLUTE AUTO 0.47 K/mm3 (0.16-1.47); MONOCYTES PERCENT AUTO 4 % (4-13); Mean Corpuscular HGB Conc 34.4 g/dL (31.5-36.5); Mean Corpuscular Volume 108 fL (80-100); Mean Platelet Volume 10.3 fL (9.1-12.4); NEUTROPHILS ABSOLUTE AUTO 11.16 K/mm3 (1.96-9.15); NEUTROPHILS PERCENT AUTO 91 % (41-73); Platelet Count 226 K/mm3 (150-400); RDW Coefficient Variation 13.7 % (11.7-14.2); RDW Standard Deviation 54.3 fL (35.1-46.3); Red Blood Cell Count 3.46 M/mm3 (4.30-5.90); White Blood Cell Count 12.31 K/mm3 (4.00-11.30)
[2019-01-23 07:46] LABS: Albumin, Blood 2.3 g/dL (3.4-5.0); Anion Gap 4 mmol/L (6-16); Blood Urea Nitrogen 27 mg/dL (8-24); Bun/Creatinine Ratio 40.2 (12.0-20.0); CO2, Blood 37 mmol/L (21-32); Calcium, Blood 7.7 mg/dL (8.5-10.1); Chloride, Blood 99 mmol/L (98-108); Creatinine, Blood 0.67 mg/dL (0.60-1.20); Glomerular Filtration Rate >60 (60-); Glucose, Blood 222 mg/dL (70-99); Phosphorus, Blood 2.6 mg/dL (2.5-4.9); Potassium, Blood 2.7 mmol/L (3.5-5.5); Sodium, Blood 140 mmol/L (136-145)
--- NOTE | 2019-01-23 08:00 | NUR ---
INITIAL ASSESSMENT PATIENT ON PRECEDEX DRIP AT 0.4 MCG/ KG/ HOUR. PATIENT RESPONDS MINIMALLY TO PAINFUL STIMULI. PATIENT VERY WEAKLY LOCALIZING MOVEMENTS TO ALL EXTREMITIES. CIWA OF 4. PATIENT AFEBRILE. PATIENT HAS NO SIGNS OF PAIN OR DISCOMFORT AT THIS TIME. PATIENT DECREASED FROM 2.5 L NC TO RA AND REMAINS SATTING AT 90% AND GREATER. LUNGS CLEAR IN UPPER LOBES AND DIMINISHED IN LOWER LOBES. PATIENT IN SR WITH PVCS. HR 60S TO 80S. SBP IN THE 140S. SEVERE ABDOMINAL DISTENTION NOTED. ABD. FIRM WITH NORMOACTIVE BS. LAST BM ON THE . PATIENT TOO SEDATED TO EAT THIS AM. CACERES DRAINING ADEQUATE AMOUNT OF ROCHELLE COLORED URINE. ANASARCA NOTED. WOUND TO R ABDOMEN- DRESSING IN PLACE AND IS CLEAN, DRY, INTACT. PATIENT'S SKIN IS VERY DRY, KRYSTIN, FLUSHED. ABDOMEN AND R ARM EDEMA IS WEEPING. NS TKO. BED LOW, CALL LIGHT IN REACH. WILL CONTINUE MONITORING PATIENT FREQUENTLY THROUGHOUT SHIFT.
--- NOTE | 2019-01-23 12:00 | NUR ---
PATIENT HAS BEEN MOSTLY SLEEPING SINCE ARRIVING ON SHIFT. PATIENT HAS WOKE A COUPLE OF TIMES DISGRUNTLED, AGITATED AND GRABBING AT LINES/ CORDS BUT THEN GOES BACK TO SLEEP. PATIENT CONFUSED. CIWA SCORE OF 4. PATIENT SATTING 90% AND GREATER ON RA. HR IN THE 70S. SBP IN THE 140S. PATIENT AFEBRILE. NO SIGNS OF PAIN OR DISCOMFORT AT THIS TIME. NO OTHER ACUTE CHANGES TO NOTE ON AT THIS TIME. WILL CONTINUE TO MONITOR.
--- NOTE | 2019-01-23 13:00 | NUR ---
PRECEDEX DRIP HAS BEEN OFF SINCE THIS AM PATIENT VERY SEDATED WITH MINIMAL RESPONSE TO PAINFUL STIMULI. PATIENT WOKE A COUPLE OF TIMES AGITATED, MUMBLING, AND PULLING AT LINES/ CORDS, HOWEVER WENT BACK TO SLEEP SHORTLY AFTER. PATIENT JUST NOW WOKE VERY AGITATED, ANXIOUS, RESTLESS, TRYING TO RIP OWN WRISTS FROM BILAT SOFT WRIST RESTRAINTS. PATIENT MUMBLING AND CUSSING LOUDLY TO LET HIM OUT. PATIENT INFORMED THAT HE IS IN THE HOSPITAL IN [place] AND THAT HE IS CURRENTLY GOING THROUGH ALCOHOL WITHDRAWALS AND THE NEED TO KEEP HIM SAFE. PATIENT REMAINS UNCOOPERATIVE, INCONSOLIBLE, UNABLE TO BE REDIRECTED. CIWA OF 23. PATIENT GIVEN 1 MG ATIVAN IV AND RESTARTED ON PRECEDEX DRIP.
--- NOTE | 2019-01-23 15:51 | NUR ---
CALLED AND SPOKE TO DR. IBARRA ABOUT PATIENT'S SBP IN THE 180S. INFORMED THAT PATIENT CANNOT HAVE EITHER OF HIS PRN BP MEDICATIONS FOR ANOTHER HOUR. ORDERS RECEIVED.
--- NOTE | 2019-01-23 17:00 | NUR ---
JUST SETTLED PATIENT DOWN AFTER HALF AN HOUR OF PATIENT BEING EXTREMELY AGITATED, ANXIOUS, KICKING AT BED AND FOOTBOARD, HITTING SIDE OF BED WITH KNUCKLES, CURSING OUT LOUD. PATIENT NOT REDIRECTABLE AND NOT ORIENTED. 1 MG ATIVAN GIVEN FIRST. PRECEDEX INCREASED AND 2 MG MORE OF ATIVAN GIVEN. PATIENT FINALLY CALMED AFTER MEDICATION TOOK EFFECT.
--- NOTE | 2019-01-23 19:08 | NUR ---
SHIFT SUMMARY PATIENT SLEPT ON AND OFF THROUGHOUT SHIFT. PATIENT SEDATED ON PRECEDEX AT BEGINNING OF SHIFT. PRECEDEX PLACED ON STANDBY SHORT TIME INTO SHIFT. PATIENT DID NOT FULLY WAKE UP UNTIL 1300. WHEN PATIENT WOKE AT 1300 HE WAS VERY AGITATED, ANXIOUS, CURSING, UNDIRECTABLE, NOT LISTENING TO STAFF, KICKING FOOT BOARD, PULLING ON RESTRAINTS. PATIENT THEN PLACED BACK ON PRECEDEX DRIP FOR THE REMAINER OF THE SHIFT. PATIENT HAD ONE MORE EPISODE WHERE HE BECAME VERY AGITATED LATER IN AFTERNOON. PATIENT HAD TO BE GIVEN 3 MG ATIVAN AND INCREASED ON PRECEDEX DRIP. PATIENT FINALLY CALMED AFTER HALF AN HOUR OF FIGHTING. CIWA RANGED FROM 4 TO 23 THIS SHIFT. PATIENT REMAINED AFEBRILE. PATIENT SATTED 90% AND GREATER ON RA. PATIENT IN SR TO ST WITH PROLONGED QT SEGMENT. HR RANGED FROM 70S TO 1-TEENS. SBP RANGED FROM 130S TO 180S. PATIENT GIVEN PRN HYDRALAZINE X 2 AND PRN LABETALOL OT. NO CHANGE IN ABDOMEN. NO BM THIS SHIFT. PATIENT REMAINED NPO ASPIRATION RISK. CACERES DRAINED OVER 3 L OF URINE. NO CHANGE TO SKIN. PATIENT REPOSITIONED T/O SHIFT. PATIENT'S EDEMA IS IMPROVING. NS INFUSING AT 50 MLS/ HOUR. PATIENT RECEIVED 40 MEQ KCL FOR POTASSIUM LEVEL OF 2.7 THIS AM. PATIENT RECEIVED COMPLETE BED BATH THIS SHIFT. PATIENT HAS NO SIGNS OF PAIN OR DISCOMFORT AT THIS TIME. BED LOW, CALL LIGHT IN REACH. REPORT WILL BE GIVEN TO ONCOMING BLACK POWDER GLAZING OPERATOR NURSE SHORTLY.
--- NOTE | 2019-01-23 20:59 | NUR ---
ASSUMED CARE OF PT, REPORT RCV'D FROM JANNETH GOODWIN. PT APPEARS RESTING COMFORTABLE ON ON PRECEDEX GTT 0.4 MCG/KG/HR. PT OPENS EYES TO VERBAL STIMULUS AND IMMEDIATELY BECOMES AGITATED THRASHING AROUND, YELLING/CURSING, PULLING AT RESTRAINTS. PT REORIENTED ON SEVERAL OCCASIONS WITH NO IMPROVEMENT IN COGNITION. PT FAILS TO FOLLOW COMMANDS, SPEECH GARBLED BUT OCCASIONALLY WORDS UNDERSTANDABLE. PT YELLING "GET ME OUT" WELL CURSE WORDS. BILATERAL SOFT WRIST RESTRAINTS IN PLACE, BED IN LOW LOCKED POSITION, CURTAIN/DOOR REMAIN OPEN. PRECEDEX INCREASED TO 0.7 MCG/KG/MIN WITH NO IMPROVEMENT. CURRENT CIWA OF 19, WILL ADMINISTER ADDITIONAL MEDICATIONS NEEDED PER CIWA PROTOCOL. PT'S VSS AT THIS TIME. EDEMA APPEARS TO BE IMPROVING. RIGHT ARM WEEPING, WILL ELEVATE TOLERATED BY PT. SEE FULL SHIFT ASSESSMENT.
[2019-01-24 04:40] LABS: BASOPHILS ABSOLUTE AUTO 0.02 K/mm3 (0.00-0.23); BASOPHILS PERCENT AUTO 0 % (0-2); EOSINOPHILS PERCENT AUTO 0 % (0-6); Hematocrit 39.5 % (37.0-53.0); Hemoglobin 13.4 g/dL (13.5-17.5); IMMATURE GRAN ABSOLUTE AUTO 0.34 K/mm3 (0.00-0.10); IMMATURE GRAN PERCENT AUTO 3 % (0-1); LYMPHOCYTES ABSOLUTE AUTO 0.53 K/mm3 (0.84-5.20); LYMPHOCYTES PERCENT AUTO 4 % (21-46); MONOCYTES ABSOLUTE AUTO 0.55 K/mm3 (0.16-1.47); MONOCYTES PERCENT AUTO 4 % (4-13); Mean Corpuscular HGB 37.2 pg (26.0-34.0); Mean Corpuscular HGB Conc 33.9 g/dL (31.5-36.5); Mean Corpuscular Volume 110 fL (80-100); Mean Platelet Volume 10.4 fL (9.1-12.4); NEUTROPHILS ABSOLUTE AUTO 12.12 K/mm3 (1.96-9.15); NEUTROPHILS PERCENT AUTO 89 % (41-73); Platelet Count 248 K/mm3 (150-400); RDW Coefficient Variation 13.5 % (11.7-14.2); RDW Standard Deviation 55.8 fL (35.1-46.3); White Blood Cell Count 13.56 K/mm3 (4.00-11.30)
[2019-01-24 05:05] LABS: Albumin, Blood 2.3 g/dL (3.4-5.0); Anion Gap 4 mmol/L (6-16); Blood Urea Nitrogen 22 mg/dL (8-24); CO2, Blood 39 mmol/L (21-32); Calcium, Blood 7.5 mg/dL (8.5-10.1); Chloride, Blood 103 mmol/L (98-108); Creatinine, Blood 0.63 mg/dL (0.60-1.20); Glomerular Filtration Rate >60 (60-); Glucose, Blood 122 mg/dL (70-99); Potassium, Blood 2.4 mmol/L (3.5-5.5); Sodium, Blood 146 mmol/L (136-145)
--- NOTE | 2019-01-24 06:28 | NUR ---
SHIFT SUMMARY PT ON 0.4 MCG/KG/HR PRECEDEX FOR MAJORITY OF SHIFT, ATTEMPTED TO TITRATE PRECEDEX DOWN TO 0.3 MCG/KG/HR AT 0430 - PATIENT SLEPT SOUNDLY AND VSS. PT QUICKLY WOKE UP AND BEGAN SCREAMING/CURSING, PULLING ON RESTRAINTS, THRASHING IN BED, PULLING ON CACERES AND IV LINES, AND SCRATCHING HIS LEGS. PT RESPONDS TO HIS NAME BUT FAILS TO FOLLOW COMMANDS D/T AGITATION. PRECEDEX GTT INCREASED TO 0.7 MCG/KG/HR @0530 AND PT GIVEN 4MG ATIVAN PER CIWA PROTOCOL. PRECEDEX CURRENTLY BACK TO 0.4 MCG/KG/HR, PT IS RELAXED AND SLEEPING SOUNDLY. VSS T/O SHIFT. CIWA SCORES OF 19 (@2100) AND 25(@0530). WILL REPORT TO DAYSHIFT NURSE.
--- NOTE | 2019-01-24 08:15 | NUR ---
INITIAL ASSESSMENT PATIENT VERY AGITATED, ANXIOUS, RESTLESS, CURSING/ YELLING, PULLING ON RESTRAINTS AND CACERES, KICKING BED THIS AM AFTER AM REPOSITIONING. PATIENT ON PRECEDEX AT 0.4 MCG/ KG/ HOUR UPON FIRST ENTERING ROOM. NURSE TRIED TO REORIENT AND REASSURE PATIENT. PATIENT NOT REDIRECTABLE. PRECEDEX INCREASED. PATIENT GIVEN 6 MG PRN IV ATIVAN IN INCREMENTS OF 2 MG AT A TIME. PATIENT FINALLY RESTING QUIETLY AFTER HALF AN HOUR OF FIGHTING. CIWA OF 25 INITIALLY THIS AM. CIWA NOW 6. PATIENT AFEBRILE. PATIENT HAD GARBLED SPEECH WHEN AWAKE AND YELLING. PATIENT DECREASED FROM 2 L NC TO RA AND REMAINS SATTING 90% AND GREATER. LUNGS CLEAR IN UPPER LOBES AND DIMINISHED IN LOWER LOBES. PATIENT SOB WITH EXERTION. NO COUGH NOTED AT THIS TIME. PATIENT IN SR WITH PVCS. PATIENT HYPERTENSIVE AND TACHYCARDIC AT THIS TIME BUT IS STARTING TO COME BACK DOWN SINCE STARTING TO RELAX. ABDOMEN SEVERELY DISTENDED, FIRM, WITH HYPOACTIVE BS. LAST BM NOTED ON THE . CACERES DRAINING YELLOW COLORED URINE WITH SEDIMENT NOTED. PATIENT SKIN IS DRY, FRAGILE, KRYSTIN, FLUSHED. SCATTERED BRUISES NOTED TO BUES. BLES REDDENED AND SCALING. PATIENT HAS PITTING AND WEEPING EDEMA. MEPILEX PLACED TO ELBOWS WHEN PATIENT AWAKE AND AGITATED HE HITS THE SIDE OF THE BED WITH HIS ARMS. NS INFUSING AT 50 MLS/ HOUR. PRECEDEX CURRENTLY AT 0.6 MCG/ KG/ HOUR. PATIENT RECEIVING 60 MEQ OF KCL FOR CRITICALLY LOW POTASSIUM OF 2.4 THIS AM. NO SIGNS OF PAIN OR DISCOMFORT AT THIS TIME. BED LOW, CALL LIGHT IN REACH. WILL CONTINUE TO MONITOR PATIENT FREQUENTLY THROUGHOUT SHIFT.
--- NOTE | 2019-01-24 12:06 | NUR ---
DR. RUBIO HERE TO SEE PATIENT. UPDATED ON PATIENT STATUS. DOCTOR INFORMED THAT PATIENT'S POTASSIUM CRITICALLY LOW THIS AM AT 2.4 BUT THAT PATIENT IS RECEIVING 60 MEQ OF KCL. INFORMED THAT PATIENT HAS NOT HAD A BM IN 4 DAYS. ASKED IF WE WOULD LIKE TO START NUTRITION FOR PATIENT HAS BEEN NPO LAST COUPLE OF DAYS. ORDERS RECEIVED.
--- NOTE | 2019-01-24 13:30 | NUR ---
PATIENT RESTING QUIETLY ON PRECEDEX DRIP AT 0.6 MCG/ KG/ HOUR AT NOON UPON ENTERING ROOM. AFTER REPOSITIONING, PATIENT WOKE VERY AGITATED, ANGRY, YELLING, KICKING BED, PULLING ON RESTRAINT, HITTING HANDS AGAINST BED. PATIENT IS NOT REDIRECTABLE, IS NOT OPENING EYES, OR COMMUNICATING WITH NURSE WHEN ASKED IF HE KNOWS WHERE HE IS. PATIENT INCREASED TO 0.7 MCG/ KG/ HOUR AND GIVEN 6 MG IV ATIVAN IN 2 MG INCREMENTS. AFTER MORE THAN HALF AN HOUR PATIENT HAS FINALLY STARTED TO GO BACK TO SLEEP. PATIENT SATTING 90% AND GREATER ON 2 L NC AT THIS TIME. HR CURRENTLY IN THE 60S. SBP IN THE 130S. NO OTHER ACUTE CHANGES TO NOTE ON AT THIS TIME. NO SIGNS OF PAIN OR DISCOMFORT NOTED. WILL CONTINUE TO MONITOR.
[2019-01-24 14:53] LABS: Base Excess Venous 20.3 mmol/L; Bicarbonate Venous 41.7 mmol/L (24.0-30.0); PCO2 Venous 46.3 mmHg (38-42)
[2019-01-24 14:54] LABS: pH Blood Venous 7.57 (7.34-7.37)
[2019-01-24 15:26] LABS: Vancomycin, Trough 21.8 ug/mL (5.0-10.0)
--- NOTE | 2019-01-24 16:19 | NUR ---
CALLED AND INFORMED DR. RUBIO OF VBG AND POTASSIUM RESULTS. VBG PH 7.57, BICARB 41.7, PCO2 46.3. POTASSIUM 2.7 AFTER 60 MEQ OF KCL TODAY. ORDERS RECEIVED TO CONSULT PULMONOLOGY. DOCTOR STATED SHE WOULD PUT ORDERS IN FOR MORE POTASSIUM REPLACEMENT.
--- NOTE | 2019-01-24 16:30 | NUR ---
PATIENT SLEEPING UNTIL BED BATH STARTED. PATIENT THEN AGAIN BECAME AGITATED, PULLING ON RESTRAINTS, KICKING BED, ELBOWING BED, CURSING, ALL WITH EYES CLOSED. PATIENT WOULD NOT RESPOND TO STAFF TRYING TO REDIRECT AND REORIENT PATIENT. PATIENT NOW ON 1 MCG/ KG/ HOUR OF PRECEDEX AND WAS GIVEN 4 MG PRN IV ATIVAN- TOOK ANOTHER HALF HOUR OF NURSE IN ROOM UNTIL PATIENT ADEQUATELY SEDATED AND CALMED. PATIENT HAS BEEN SATTING 90% AND GREATER ON RA TO 2 L NC. HR HAS BEEN 60S TO 120S. PATIENT TACHYCARDIC WHEN AGITATED. SBP HAS BEEN 120S TO 170S. PATIENT HYPERTENSIVE WHEN AGITATED. NO OTHER ACUTE CHANGES TO NOTE ON AT THIS TIME. WILL CONTINUE TO MONITOR.
--- NOTE | 2019-01-24 19:22 | NUR ---
SHIFT SUMMARY PATIENT ON PRECEDEX ALL SHIFT FOR ETOH WITHDRAWALS. CIWAS RANGED FROM 6 TO 25. PATIENT BECAME VERY AGITATED WHEN BEING REPOSITIONED 3 TIMES DURING THE DAY. PATIENT GIVEN 4-6 MG IV ATIVAN AT EACH EPISODE IN ADDITION TO THE PRECEDEX TO TRY AND CALM HIM DOWN. PATIENT IS NOT REDIRECTABLE OR REORIENTABLE WHEN HE IS AWAKE AND AGITATED. PATIENT KEEPS EYES CLOSED WELL. PATIENT REMAINED AFEBRILE. PATIENT SATTED 90% AND GREATER ON RA TO 2 L NC. PATIENT IN SR WITH PVCS AND PROLONGED QT INTERVAL. VITAL SIGNS STABLE WHEN RESTING QUIETLY. PATIENT HYPERTENSIVE AND TACHYCARDIC WHEN AGITATED. PATIENT DID NOT HAVE BM THIS SHIFT. SUPPOSITORY ORDERED FOR BEDTIME. PATIENT STARTED ON TPN AT 75 MLS/ HOUR. CACERES DRAINED ADEQUATE AMOUNT OF YELLOW URINE WITH SEDIMENT NOTED. NO CHANGE TO SKIN. PATIENT REPOSITIONED Q2H, PADDED WITH EXUDRYS FOR WEEPING EDEMA, AND MEPILEX' APPLIED TO PROTECT SKIN WHEN PATIENT AGITATED AND THRASHING AROUND. NS INFUSING AT 50 MLS/ HOUR, PRECEDEX CURRENTLY INFUSING AT 1 MCG/ KG/ HOUR. PATIENT RECEIVED 60 MEQ KCL TODAY AND IS RECEIVING ANOTHER 40 MEQ FOR A CONTINUED LOW POTASSIUM LEVEL. PATIENT RECEIVED BED BATH THIS SHIFT. DR. PA CONSULTED FOR CRITICAL VBG RESULTS. PATIENT HAS NO SIGNS OF PAIN OR DISCOMFORT AT THIS TIME. REPORT HAS BEEN GIVEN TO ASSUMING CARRIAGE OPERATOR NURSE.
--- NOTE | 2019-01-24 21:00 | NUR ---
ASSUMED CARE OF PT, REPORT RCV'D FROM JANNETH GOODWIN. PT SLEEPING COMFORTABLY ON PRECEDEX GTT @ 1 MCG/KG/HR WITH NO OUTWARD SIGNS OF ETOH W/D. CIWA PROTOCOL IN PLACE. VSS. TPN@ 75 ML/HR AND KCL BAG 2 OF 2 INFUSING. CACERES PATENT AND DRAINING. EDEMETOUS EXTREMETIES ELEVATED AND WEEPING SKIN PROTECTED WITH DRY FLOWS AND MEPILEX. BILATERAL SOFT RESTRAINTS IN PLACE TO PROTECT LINES/CORD, BED IN LOW LOCKED POSITION, DOOR/CURTAIN OPEN. SEE FULL SHIFT ASSESSMENT.
[2019-01-24] MEDS ORDERED: ATOR80 PO (22:29)
[2019-01-24] MEDS ORDERED: POTCHL20ER PO (22:32)
[2019-01-25 04:41] LABS: PCO2 Arterial 36.3 mmHg (35-45); PO2 Arterial 65.1 mmHg (80-100); pH Blood Arterial 7.58 (7.35-7.45)
--- NOTE | 2019-01-25 06:47 | NUR ---
SHIFT SUMMARY PT CONTINUES TO BE EASILY AGITATED WITH ANY STIMULUS, FAILS TO FOLLOW COMMANDS OR COOPERATE WITH CARE. ATTEMPTED TO TITRATE PRECEDEX DOWN, PATIENT AGITATED, THRASHING AROUND, YELLING AND HITTING BEDRAILS. CIWA OF 20 AND 21. MEDICATED WITH ATIVAN ON 2 OCCASIONS, PT APPEARS TO HAVE DECREASED RESPIRATORY DRIVE FOLLOWING ATIVAN ADMINISTRATION WITH PERIODS OF APNEA AND LOW 02 SATURATION. LUNG SOUNDS CLEAR T/O WITH OCCASIONAL EXPIRATORY WHEEZE. KCL GTT INFUSING BAG 3 OF 3. BILATERAL SOFT WRIST RESTRAINTS IN PLACE. WILL REPORT TO DAYSHIFT NURSE.
--- NOTE | 2019-01-25 07:24 | NUR ---
ASSUMED CARE: PT RESTING IN BED, SOME WHAT WRESTLESS, PRECEDEX GTT RUNNING 0.7MCG/KG/MIN. KCL RUNNING, LABS TO BE DRAWN WHEN COMPLETE. CPN RUNNING. VSS AT THIS TIME, APNEA NOTED AT TIMES WITH REST. WILL MEDICATE FOR CIWAS
--- NOTE | 2019-01-25 07:59 | NUR ---
PT BECAME AGITATED, THRASHING IN BED, MEDICATED WITH 4 OF ATIVAN AND INCREASED PRECEDEX GTT TO 1.0 MCG/KG/MIN. DISCUSSED WITH RELAY ASSEMBLER. PT UNABLE TO FOLLOW INSTRUCTION, NOT RESPONDING TO STAFF OTHER THAN MOANS AND GROANS WHEN TRYING TO MOVE IN BED.
[2019-01-25 09:58] LABS: Magnesium, Blood 1.9 mg/dL (1.6-2.4); Phosphorus, Blood 2.5 mg/dL (2.5-4.9)
--- NOTE | 2019-01-25 11:04 | NUR ---
DR MONTERO AT BEDSIDE. AWARE THAT PT IS ON 1.4MCG/KG/MIN PRECEDEX AT THIS TIME. DRESSING TO RIGHT ELBOW CHANGED WITH DR MONTERO'S ASSISTANCE. DR SU OF NERI.
--- NOTE | 2019-01-25 18:50 | NUR ---
SHIFT SUMMARY: PT'S PRECEDEX GTT REMAINS AT 1.4MCG/KG/MIN. ANY ATTEMPT TO TITRATE DOWN HAS RESULTED IN PT BECOMING AGITATED AND WRESTLESS IN BED. AGITATION WORSENS WITH ACTIVITY AND PATIENT CARE. MEDICATED X1 WITH ATIVAN AND X1 WITH ZYPREXA. BILATERAL WRIST RESTRAINTS IN PLACE FOR ATTEMPTING TO PULL AT LINES AND INTERFERE WITH CARE. RESTING QUIETLY AT THIS TIME.
[2019-01-25 18:52] LABS: Anion Gap 2 mmol/L (6-16); Blood Urea Nitrogen 27 mg/dL (8-24); Bun/Creatinine Ratio 44.2 (12.0-20.0); CO2, Blood 33 mmol/L (21-32); Calcium, Blood 6.9 mg/dL (8.5-10.1); Chloride, Blood 114 mmol/L (98-108); Creatinine, Blood 0.61 mg/dL (0.60-1.20); Glomerular Filtration Rate >60 (60-); Glucose, Blood 205 mg/dL (70-99); Sodium, Blood 149 mmol/L (136-145)
--- NOTE | 2019-01-25 18:56 | NUR ---
DR MONTERO AWARE OF LATEST LAB RESULTS
--- NOTE | 2019-01-25 19:00 | NUR ---
ASSUMED CARE ASSUMED CARE OF PATIENT. REMAINS SEDATED WITH PRECEDEX @ 1.4MCG/KG/HR. RESPONDS TO NOXIOUS STIMULI. MOANS AND HAS GARBLED SPEECH. MOVES ALL EXTREMITIES, BUT NOT FOLLOWING COMMANDS. RA, 2MM, SLUGGISH. BILATERAL SOFT WRIST RESTRAINTS IN PLACE. NPO AT THIS TIME D/T SEDATION. SHORT PERIODS OF APNEA AND IRREGULAR RESPIRATIONS NOTED, RR 10-16. O2 @ 3LNC. MONITOR SHOWS NSR, RATE 60s. SBP 150s. CACERES PATENT AND DRAINING YELLOW URINE. CPN INFUSING AT 75CC/HR PER ORDER. SEE SHIFT ASSESSMENT FOR FULL ASSESSMENT.
[2019-01-26 05:02] LABS: BASOPHILS ABSOLUTE AUTO 0.03 K/mm3 (0.00-0.23); BASOPHILS PERCENT AUTO 0 % (0-2); EOSINOPHILS ABSOLUTE AUTO 0.01 K/mm3 (0.00-0.68); EOSINOPHILS PERCENT AUTO 0 % (0-6); Hematocrit 39.3 % (37.0-53.0); Hemoglobin 12.7 g/dL (13.5-17.5); IMMATURE GRAN ABSOLUTE AUTO 0.48 K/mm3 (0.00-0.10); IMMATURE GRAN PERCENT AUTO 3 % (0-1); LYMPHOCYTES ABSOLUTE AUTO 0.47 K/mm3 (0.84-5.20); LYMPHOCYTES PERCENT AUTO 3 % (21-46); MONOCYTES ABSOLUTE AUTO 0.46 K/mm3 (0.16-1.47); MONOCYTES PERCENT AUTO 3 % (4-13); Mean Corpuscular HGB 37.2 pg (26.0-34.0); Mean Corpuscular HGB Conc 32.3 g/dL (31.5-36.5); Mean Platelet Volume 10.6 fL (9.1-12.4); NEUTROPHILS ABSOLUTE AUTO 13.17 K/mm3 (1.96-9.15); NEUTROPHILS PERCENT AUTO 90 % (41-73); NRBC ABSOLUTE 0.04 K/mm3 (0.00-0.02); NRBC Auto 0.3 /100 WBC (0.0-0.2); Platelet Count 272 K/mm3 (150-400); RDW Standard Deviation 60.5 fL (35.1-46.3); Red Blood Cell Count 3.41 M/mm3 (4.30-5.90); White Blood Cell Count 14.62 K/mm3 (4.00-11.30)
[2019-01-26 05:04] LABS: Mean Corpuscular Volume 115 fL (80-100)
[2019-01-26 05:21] LABS: Alanine Aminotransfer (ALT/SGP 57 U/L (12-78); Albumin, Blood 2.3 g/dL (3.4-5.0); Albumin/Globulin Ratio 0.8 (0.8-1.8); Alk Phos 170 U/L (50-136); Anion Gap 3 mmol/L (6-16); Aspartate Aminotrans (AST/SGOT 36 U/L (12-37); Bilirubin, Total 0.5 mg/dL (0.1-1.0); Blood Urea Nitrogen 30 mg/dL (8-24); Bun/Creatinine Ratio 41.6 (12.0-20.0); CO2, Blood 34 mmol/L (21-32); Calcium, Blood 8.1 mg/dL (8.5-10.1); Chloride, Blood 112 mmol/L (98-108); Creatinine, Blood 0.72 mg/dL (0.60-1.20); Glomerular Filtration Rate >60 (60-); Glucose, Blood 190 mg/dL (70-99); Magnesium, Blood 2.2 mg/dL (1.6-2.4); Phosphorus, Blood 2.1 mg/dL (2.5-4.9); Potassium, Blood 3.9 mmol/L (3.5-5.5); Sodium, Blood 149 mmol/L (136-145); Total Protein, Blood 5.3 g/dL (6.4-8.2); Triglycerides 173 mg/dL (30-160)
--- NOTE | 2019-01-26 06:12 | NUR ---
SHIFT SUMMARY NO ACUTE CHANGES DURING NOC. PRECEDEX INFUSED BETWEEN 1.0-1.4MCG/KG/HR DURING SHIFT. NOW INFUSING @ 1.2MCG/KG/HR. MEDICATED WITH ATIVAN 4MG IV X 1 DOSE FOR INCREASED AGITATION. CIWA DIFFICULT TO ASSESS, BUT SCORES BETWEEN 7-17. MUMBLES INCOHERENTLY AND MOANS AT TIMES. MOVES ALL EXTREMITIES. NOT FOLLOWING ANY COMMANDS. BILATERAL SOFT WRIST RESTRAINTS REMAIN IN PLACE. OCCASIONALLY HYPERTENSIVE- INCREASED WTIH AGITATION. REMAINS ON 2LNC. CONTINUES WITH PERIODS OF APNEA AND IRREGULAR RESPIRATIONS. CACERES PATENT AND DRAINING YELLOW URINE. CPN INFUSING @ 75CC/HR PER ORDER. WILL REPORT TO DAY SHIFT RN WHEN AVAILABLE.
--- NOTE | 2019-01-26 10:00 | NUR ---
SHIFT ASSESSMENT: PT RESTING AT BEGINNING OF SHIFT ON PRECEDEX. BECOMES AGITATED, PULLING ON WRIST RESTRAINTS WITH REPOSITIONING, ORAL CARE. 4 MG OF ATIVAN GIVEN AND PRECEDEX INCREASED FROM 1.2 TO 1.4 DUE TO CIWA OF 23. NOT CURRENTLY RESPONDING TO COMMANDS, MUMBLING INCOHERENTLY. PT CURRENT O2 SAT IN 90%S, HOWEVER WHEN AGITATED O2 SAT DROPS INTO HIGH 80S THAT REQUIRED 6L NC. HYPERTENSIVE WHEN AGITATED SBP 180S. CURRENT SBP 150S. WHEEZES ON EXPIRATION, CURRENTLY ON 3L NC. PT ABD IS DISTENDED, FIRM, AND BOWEL TONES ARE HYPOACTIVE. CACERES IS PATENT AND DRAINING YELLOW URINE WITH SMALL AMOUNTS OF SEDIMENT. RFA IS WEEPING, ABD WOUND'S DRESSING IS CLEAN, DRY, INTACT. PICC LINE L UPPER ARM, TPN AT 75, PRECEDEX 1.4, CEFEPIME, VANCO, K PHOS ORDERED, NS TKO.
--- NOTE | 2019-01-26 12:56 | NUR ---
CIWA 19 PT REMAINS ON PRECEDEX DRIP, PRN ATIVAN NEEDED. PT AFEBRILE. PT REMAINS SATTING AT >90% ON 3 L NC. REMAINS IN SR, HR IN 60S, SBP IN 130S. DOBHOFF INSERTED PER DR. MONTERO FOR MEDICATION INSERTION. AWAITING CXR DOBHOFF PLACEMENT VERIFICATION.
--- NOTE | 2019-01-26 16:00 | NUR ---
PT RESTING QUIETLY IN BED AT THIS TIME. CIWA SCORE 4. NO SIGNS OF PAIN OR DISCOMFORT NOTED. PT AFEBRILE. PT HAS HAD INCREASED URINE OUTPUT SINCE IV LASIX GIVEN. DOBHOFF PLACED FOR MED ADMINISTRATION. PLACEMENT CONFIRMED BY DR. MONTERO. PT SATTING >90% ON RA. NO OTHER ACUTE CHANGES TO NOTE ON AT THIS TIME. WILL CONTINUE TO MONITOR.
--- NOTE | 2019-01-26 18:40 | NUR ---
SHIFT SUMMARY: PT EITHER SLEEPING OR AWAKE AND AGITATED. 10 MG OF PRN ATIVAN GIVEN THROUGHOUT SHIFT FOR CIWAS RANGING FROM 4-23. PT DID OPEN EYES A COUPLE TIMES TO VERBAL COMMAND. IS ABLE TO MOVE EXTREMITITIES HOWEVER IS IN RESTRAINTS AND ON BEDREST. NO SIGNS OF PAIN. PT IS AFEBRILE. EXPIRATORY WHEEZES IN UPPER LOBES AND IS CURRENTLY SATTING AT 99% ON 2L NC. PT O2 SATS >90% ON RA-6L. PT IS SR AND BECOMES HYPERTENSIVE WHEN AGITATED. ABDOMEN IS DISTENDED AND FIRM, BS ARE HYPOACTIVE. PT HAD ONE SMALL BROWN BM DURING SHIFT. DOBHOFF PLACED FOR MED ADMINISTRATION ONLY. PLACEMENT VERIFIED. SKIN IS DRY AND SCALY. R ARM HAS REDDISH WEEPING AREA. R SIDE ABD WOUND DRESSING IS CLEAN, DRY, AND INTACT. PT HAS PICC IN L UPPER ARM. TPN IS INFUSING AT 75ML/HR, PRECEDEX AT 1.
--- NOTE | 2019-01-26 19:00 | NUR ---
ASSUMED CARE ASSUMED CARE OF PATIENT. REMAINS SEDATED WITH PRECEDEX @ 1.0MCG/KG/HR. PERIODS OF AGITATION AND RESTLESSNESS NOTED. MOANS AND MUMBLES INCOHERENTLY AT TIMES. MOVES ALL EXTREMITIES, BUT NOT FOLLOWING ANY COMMANDS. ATTEMPTS TO OPEN EYES. MONITOR SHOWS NSR, RATE 60s. BP 150s/60s. REMAINS ON 2L NC, SATS 96-98%. RESPIRATIONS IRREGULAR, BUT UNLABORED AT THIS TIME. DOBHOFF CLAMPED. CACERES PATENT AND DRAINING YELLOW URINE. BILATERAL UEs EDEMATOUS AND WEEPING SEROUS FLUID, R>L. DRSG INTACT TO LEFT ABDOMEN. CPN INFUSING @ 75CC/HR PER ORDER. SEE SHIFT ASSESSMENT FOR FULL ASSESSMENT.
--- NOTE | 2019-01-26 19:14 | NUR ---
ALL NOTES REVIEWED BY THIS NURSE. AGREE WITH ROQUE ON HER CHARTING. REPORT HAS BEEN GIVEN TO ASSUMING FLARE BREAKER NURSE.
--- NOTE | 2019-01-27 00:25 | NUR ---
HYPERTENSION SBP 170-190s. SCHEDULED LOPRESSOR GIVEN PER ORDER. PT IS CALM AT THIS TIME. CALL TO DR. MONTERO- NEW ORDERS RECEIVED FOR BP CONTROL.
[2019-01-27 04:29] LABS: Hematocrit 36.3 % (37.0-53.0); Hemoglobin 11.9 g/dL (13.5-17.5); Mean Corpuscular HGB 37.2 pg (26.0-34.0); Mean Corpuscular HGB Conc 32.8 g/dL (31.5-36.5); Mean Corpuscular Volume 113 fL (80-100); Mean Platelet Volume 10.7 fL (9.1-12.4); NRBC ABSOLUTE 0.03 K/mm3 (0.00-0.02); NRBC Auto 0.2 /100 WBC (0.0-0.2); Platelet Count 266 K/mm3 (150-400); RDW Coefficient Variation 13.8 % (11.7-14.2); RDW Standard Deviation 57.6 fL (35.1-46.3); White Blood Cell Count 13.26 K/mm3 (4.00-11.30)
[2019-01-27 04:31] LABS: Base Excess Venous 13.1 mmol/L; Bicarbonate Venous 35.2 mmol/L (24.0-30.0); PCO2 Venous 44.4 mmHg (38-42); PO2 Venous 52.5 mmHg (38-42); pH Blood Venous 7.51 (7.34-7.37)
[2019-01-27 04:46] LABS: Anion Gap 4 mmol/L (6-16); Blood Urea Nitrogen 31 mg/dL (8-24); Bun/Creatinine Ratio 43.7 (12.0-20.0); CO2, Blood 34 mmol/L (21-32); Calcium, Blood 7.9 mg/dL (8.5-10.1); Chloride, Blood 112 mmol/L (98-108); Creatinine, Blood 0.71 mg/dL (0.60-1.20); Glomerular Filtration Rate >60 (60-); Glucose, Blood 231 mg/dL (70-99); Potassium, Blood 3.5 mmol/L (3.5-5.5); Sodium, Blood 150 mmol/L (136-145)
[2019-01-27 04:49] LABS: BAND PERCENT MAN 1 % (0-8); BASOPHILS PERCENT MAN 0 % (0-2); EOSINOPHILS PERCENT MAN 0 % (0-6); LYMPHOCYTES ABSOLUTE MAN 0.39 K/mm3 (0.84-5.20); LYMPHOCYTES PERCENT MAN 3 % (21-46); METAMYELOCYTE ABSOLUTE MAN 0.13 K/mm3 (0.00-0.00); METAMYELOCYTE PERCENT MAN 1 % (0-0); MONOCYTES ABSOLUTE MAN 0.13 K/mm3 (0.16-1.47); MONOCYTES PERCENT MAN 1 % (4-13); MYELOCYTE ABSOLUTE MAN 0.13 K/mm3 (0.00-0.00); MYELOCYTE PERCENT MAN 1 % (0-0); NEUTROPHILS ABSOLUTE MAN 12.46 K/mm3 (1.96-9.15); SEG NEUTROPHILS PERCENT MAN 93 % (41-73); TOTAL CELLS COUNTED 100
--- NOTE | 2019-01-27 06:35 | NUR ---
SHIFT SUMMARY CONTINUES WITH PERIODS OF AGITATION AND RESTLESSNESS. MOANS AND MUMBLES INCOHERENTLY. THRASHES IN BED AND PULLS AGAINST RESTRAINTS. REMAINED ON PRECEDEX T/O NOC 1.0-1.4MCG/KG/HR. NOW INFUSING @ 1.4MCG/KG/HR. ALSO MEDICATED WITH LIBRIUM 20MG PT X 1, ATIVAN 4MG IV X 3 DOSES, AND ZYPREXA 5MG PT X 1 DOSE. MONITOR SHOWS NSR, RATE 60s. HYPERTENSIVE WITH SBP 150-200s. MEDICATED WITH PRN HYDRALAZINE X 1 DOSE AND SCHEDULED LOPRESSOR. DOBHOFF CLAMPED. CACERES PATENT AND DRAINING TO GRAVITY. CPN INFUSING @ 75CC/HR PER ORDER. INCONTINENT OF LOOSE STOOL X 1. WILL REPORT TO DAY SHIFT RN WHEN AVAILABLE.
--- NOTE | 2019-01-27 08:00 | NUR ---
INITIAL ASSESSMENT PATIENT SLEEPING UPON ENTERING ROOM. PATIENT ON PRECEDEX DRIP AT 1.4 MCG/ MINUTE. PER NIGHT RN REPORT, PATIENT CONTINUES TO WAKE WITH NURSING CARE/ REPOSITIONING AND BECOMES VERY AGITATED, PULLS ON RESTRAINTS AND DOES NOT FOLLOW ANY COMMANDS. CIWA OF 4 THIS AM. NO SIGNS OF PAIN OR DISCOMFORT TO NOTE ON AT THIS TIME. PATIENT AFEBRILE. PATIENT SATTING 90% AND GREATER ON 1 L NC. LUNGS COARSE THROUGHOUT. EXPIRATORY WHEEZES NOTED IN BILAT UPPER LUNG LOBES. PATIENT IN SR, HR IN THE 60S. SBP IN THE 150S. ABDOMEN SEVERELY DISTENDED, SOFT, WITH HYPOACTIVE BS NOTED. LAST BM TODAY. PATIENT NPO. DOBHOFF IN PLACE BUT FOR MEDICATION ADMINISTRATION ONLY. CACERES DRAINING YELLOW, CLEAR URINE. SKIN IS DRY AND FRAGILE. PATIENT HAS SCATTERED BRUISES TO BUES. BLES REDDENED AND SCALING. ABD WOUND TO R SIDE OF ABDOMEN- DRESSING IN PLACE AND C/D/I. R FA WEEPING- EXUDRY IN PLACE. NS TKO. TPN INFUSING AT 75 MLS/ HOUR. BED LOW, CALL LIGHT IN REACH. WILL CONTINUE TO MONITOR PATIENT FREQUENTLY THROUGHOUT SHIFT.
--- NOTE | 2019-01-27 11:16 | NUR ---
PATIENT HAS FINALLY CALMED DOWN AFTER 45 MINUTES OF FIGHTING/ PULLING ON RESTRAINTS, MOANING, KICKING BED. PATIENT ASKED TO OPEN HIS EYES BUT WOULD NOT. PATIENT ASKED ORIENTATION QUESTIONS; PATIENTS WOULD NOT ANSWER NURSE'S QUESTIONS. PATIENT NOT REDIRECTABLE OR ABLE TO BE ORIENTED. PATIENT ON 1.2 MCG/ KG/ HOUR OF PRECEDEX AND WAS GIVEN 4 MG PRN IV ATIVAN.
--- NOTE | 2019-01-27 12:13 | NUR ---
PATIENT VERY AGITATED AFTER NOON REPOSITIONING. PATIENT PULLING ON RESTRAINTS, MOANING/ YELLING LOUDLY, KICKING BED. PATIENT CONTINUES NOT TO RESPOND TO NURSE COMMAND. PATIENT CONTINUES TO KEEP EYES CLOSED. CIWA SCORE OF 19. PRN ZYPREXA GIVEN. PRECEDEX DRIP REMAINS AT 1.2 MCG/ KG/ HOUR. PATIENT AFEBRILE. PATIENT VERY WHEEZY, SOB WITH EXERTION. PATIENT HOLDS BREATH WHILE PULLING ON RESTRAINTS. TACHYCARDIC. PATIENT SATTING 90% AND GREATER ON 2 L NC. HR 70S TO 80S. SBP IN THE 150S. BLOOD SUGAR OF 232- COVERAGE GIVEN. NO OTHER ACUTE CHANGES TO NOTE ON AT THIS TIME. DR. MONTERO IN TO SEE PATIENT. DOCTOR UPDATED ON PATIENT STATUS. DOCTOR INFORMED THAT PATIENT VERY WHEEZY, THAT BNP 1290 THIS AM. DOCTOR STATED SHE WOULD PUT ORDERS IN. WILL CONTINUE TO MONITOR.
[2019-01-27 16:52] LABS: Anion Gap 1 mmol/L (6-16); Blood Urea Nitrogen 32 mg/dL (8-24); Bun/Creatinine Ratio 46.8 (12.0-20.0); CO2, Blood 35 mmol/L (21-32); Chloride, Blood 114 mmol/L (98-108); Creatinine, Blood 0.68 mg/dL (0.60-1.20); Glomerular Filtration Rate >60 (60-); Glucose, Blood 160 mg/dL (70-99); Potassium, Blood 3.8 mmol/L (3.5-5.5); Sodium, Blood 150 mmol/L (136-145)
--- NOTE | 2019-01-27 18:21 | NUR ---
SHIFT SUMMARY PATIENT HAD MORE FREQUENT EPISODES OF AGITATION THIS SHIFT THAT PREVIOUS SHIFTS WITH HIM. NURSE TRIED TO TITRATE PRECEDEX DOWN BUT ENDED BACK UP TO 1.4 MCG/ KG/ HOUR BY END OF SHIFT. PATIENT GIVEN PRN ZYPREXA PO THIS SHIFT. PATIENT GIVEN PRN IV ATIVAN MANY TIMES THIS SHIFT. DR. MONTERO INCREASED SCHEDULED LIBRIUM WELL TODAY. PATIENT SLEPT A COUPLE OF TIMES THIS SHIFT. WHEN PATIENT AWAKE, HE PULLS AT RESTRAINTS (HOLDS BREATH WHILE PULLING), KICKS BED, MOANS AND GRUNTS. PATIENT REMAINS UNABLE TO RESPOND TO SIMPLE COMMANDS. PATIENT REMAINS UNABLE TO BE REDIRECTED OR REORIENTED. CIWA SCORE OF 4-19. PATIENT REMAINED AFEBRILE. PATIENT SATTED 90% AND GREATER ON 1 L NC TO 4 L NC. PATIENT SOB AND TACHYCARDIC WITH EXERTION AND AGITATION. CONTINUED TO AUSCULTATE WHEEZES IN LUNG LOBES. HR RANGED FROM 50S TO 90S. SBP 150S TO 180S. DR. MONTERO INFORMED OF 21 BEAT RUN OF VTACH THIS AM. ABDOMEN REMAINED DISTENDED AND SOFT. PATIENT DID NOT HAVE BM THIS SHIFT. CACERES REMAINED DRAINING CLEAR, YELLOW URINE. NO CHANGE IN SKIN. PATIENT REPOSITIONED T/O SHIFT. TPN REMAINS INFUSING AT 75 MLS/ HOUR. NS TKO. REPORT WILL BE GIVEN TO ASSUMING RN ENTEROSTOMAL NURSE SHORTLY.
--- NOTE | 2019-01-27 18:53 | NUR ---
CALLED DR. MONTERO AT 1835 TO REPORT THAT PATIENT HAD 7 BEAT RUN OF ACCELERATED JUNCTIONAL RHYTHM. DOCTOR ORDERED FOR 12 LEAD EKG AND TROPONIN. EKG PERFORMED AND SHOWING NSR WITH POSSIBLE INFERIOR INFARCT. PATIENT EKG ON AND BOTH ALSO STATE POSSIBLE INFERIOR INFARCT.
--- NOTE | 2019-01-27 19:00 | NUR ---
ASSUMED CARE ASSUMED CARE OF PATIENT. PT IS RESTLESS AND AGITATED. THROWING LEGS OFF SIDE OF BED AND PULLING AGAINST RESTRAINTS. MOANS, GRUNTS, AND MUMBLES. NOT FOLLOWING ANY COMMANDS. MOVES ALL EXTREMITIES. PRECEDEX CONTINUES @ 1.4MCG/KG/HR. BILATERAL SOFT WRIST RESTRAINTS IN PLACE. NPO. CPN INFUSING @ 75CC/HR PER ORDER. CACERES PATENT AND DRAINING YELLOW URINE. PICC LINE NOTED TO [place]. SEE SHIFT ASSESSMENT FOR FULL ASSESSMENT.
--- NOTE | 2019-01-27 19:08 | NUR ---
DR. MONTERO CALLED TO INFORM OF EKG RESULTS AND TROPONIN RESULT OF 0.135. DOCTOR STATED SHE WOULD BE HERE SHORTLY.
--- NOTE | 2019-01-27 19:13 | NUR ---
DR. MONTERO HERE TO SEE PATIENT AND VIEW 12 LEAD EKG RESULT. T WAVE FLIPPED. DOCTOR INFORMED OF TROPONIN LEVEL OF 0.135. DOCTOR INFORMED THAT PATIENT HAD MORE FREQUENT EPISODES OF AGITATION TODAY. DOCTOR STATED THAT SHE WOULD PUT ORDERS IN THE COMPUTER.
[2019-01-28 05:09] LABS: BASOPHILS ABSOLUTE AUTO 0.01 K/mm3 (0.00-0.23); BASOPHILS PERCENT AUTO 0 % (0-2); EOSINOPHILS PERCENT AUTO 0 % (0-6); Hematocrit 35.4 % (37.0-53.0); Hemoglobin 11.6 g/dL (13.5-17.5); IMMATURE GRAN ABSOLUTE AUTO 0.68 K/mm3 (0.00-0.10); IMMATURE GRAN PERCENT AUTO 5 % (0-1); LYMPHOCYTES ABSOLUTE AUTO 0.38 K/mm3 (0.84-5.20); LYMPHOCYTES PERCENT AUTO 3 % (21-46); MONOCYTES ABSOLUTE AUTO 0.44 K/mm3 (0.16-1.47); MONOCYTES PERCENT AUTO 3 % (4-13); Mean Corpuscular HGB 37.9 pg (26.0-34.0); Mean Corpuscular HGB Conc 32.8 g/dL (31.5-36.5); Mean Platelet Volume 10.8 fL (9.1-12.4); NEUTROPHILS ABSOLUTE AUTO 12.79 K/mm3 (1.96-9.15); NEUTROPHILS PERCENT AUTO 89 % (41-73); NRBC ABSOLUTE 0.04 K/mm3 (0.00-0.02); NRBC Auto 0.3 /100 WBC (0.0-0.2); Platelet Count 259 K/mm3 (150-400); RDW Coefficient Variation 13.8 % (11.7-14.2); RDW Standard Deviation 59.2 fL (35.1-46.3); Red Blood Cell Count 3.06 M/mm3 (4.30-5.90)
[2019-01-28 05:17] LABS: Mean Corpuscular Volume 116 fL (80-100)
[2019-01-28 05:46] LABS: Anion Gap 5 mmol/L (6-16); Blood Urea Nitrogen 35 mg/dL (8-24); Bun/Creatinine Ratio 45.3 (12.0-20.0); CO2, Blood 34 mmol/L (21-32); Calcium, Blood 7.8 mg/dL (8.5-10.1); Chloride, Blood 112 mmol/L (98-108); Creatinine, Blood 0.77 mg/dL (0.60-1.20); Glomerular Filtration Rate >60 (60-); Glucose, Blood 185 mg/dL (70-99); Potassium, Blood 3.4 mmol/L (3.5-5.5); Sodium, Blood 151 mmol/L (136-145)
[2019-01-28 05:47] LABS: Troponin I 0.147 ng/mL (0.000-0.040)
--- NOTE | 2019-01-28 06:25 | NUR ---
SHIFT SUMMARY NO ACUTE CHANGES. CONTINUES WITH FREQUENT PERIODS OF RESTLESSNESS AND AGITATION. MOVES ALL EXTREMITIES, BUT NOT FOLLOWING ANY COMMANDS. OPENS EYES MINIMALLY TO NOXIOUS STIMULI. BILATERAL SOFT WRIST RESTRAINTS REMAIN IN PLACE. PULLS AGAINST RESTRAINTS AND THROWS LEGS OVER SIDE OF BED FREQUENTLY. MOANS AND MUMBLES INCOHERENTLY. MEDICATED WITH ZYPREXA 5MG PT X 2 DOSES DURING SHIFT. MEDICATED WITH ATIVAN 4MG IV X 2 DOSES. AND MEDICATED WITH LIBRIUM PER ORDER. OCCASIONALLY HYPERTENSIVE- HYDRALAZINE GIVEN X 1 DOSE AND SCHEDULED LOPRESSOR GIVEN. CPN CONTINUES @ 75CC/HR PER ORDER. DOBHOFF CLAMPED. CACERES PATENT AND DRAINING CLEAR YELLOW URINE. WILL REPORT TO DAY SHIFT RN WHEN AVAILABLE.
--- NOTE | 2019-01-28 12:23 | NUR ---
0700: CARE ASSUMED, PT RESTING QUIETLY IN BED, NO AGITATION NOTED AT THIS TIME. PT ROUSES TO PHYSICAL STIMULI, MOANS, OPENS EYES OCCASIONALLY BUT DOES NOT SPEAK, FOLLOW DIRECTIONS OR TRACK. RA, SLUGGISH. PRECEDEX INFUSING AT 1.4MCG/KG/HR, HR 50'S-60'S IRREGULAR SINUS WITH PVC'S, BP SLIGHTLY ELEVATED. LS WITH EXPIRATORY WHEEZES T/O, SPO2 MAINTAINING >90% ON 2L/NC. DRESSINGS TO RLQ, LEFT FA, RIGHT UPPER ARM, AND RIGHT WRIST CDI, SEROSANG WEEPING NOTED FROM RUE. 1030: ECHO COMPLETED, PT REPOSITIONED, CATH CARE AND ORAL CARE COMPLETED. PT BECAME RESTLESS, NEURO STATUS UNCHANGED, ATIVAN ADMINISTERED PER ORDERS. 1200: 'S DIVYA AND KYLAH IN TO SEE PT, NEW ORDERS. UNABLE TO COMPLETE CXR D/T RESTLESSNESS/AGITATION WITH STIMULATION. PT REMAINS CALM AND QUIET WHEN STIMULUS IS LOW. LS CLEAR BUT DIMINISHED AT THIS TIME, NO WHEEZES NOTED, SPO2 MID 90'S 2L/NC. GOOD URINE OUTPUT WITH LASIX.
--- NOTE | 2019-01-28 14:06 | NUR ---
PT CALMED AFTER NOON MEDICATIONS, CXR COMPLETED. PT BECAME RESTLESS AND AGITATED AFTER XRAY AND REPOSITIONING, ATIVAN ADMINISTERED PER ORDERS. HR 50'S WHILE RESTING, 70'S WHEN AGITATED, SBP 150'S. HR REMAINS IRREGULAR WITH PVC'S, NO RUNS OF VTACH NOTED THIS SHIFT.
--- NOTE | 2019-01-28 17:07 | NUR ---
PT RESTING QUIETLY IN BED, VSS, HR SINUS. BEDBATH GIVEN, ORAL AND CATH CARE PROVIDED, PT TOLERATED WELL WITH LITTLE RESTLESSNESS/AGITATION. DURING BATH LUE WAS NOTED TO BE BRUISED, RED, EDEMATOUS, AND WARM TO TOUCH AROUND PICC INSERTION SITE FROM ELBOW UP TO UNDER ARM. EDEMA IS 2-3+ PITTING. LUMENS FLUSH AND DRAW WITHOUT DIFFICULTY, NOTIFIED OF SITE COMPLICATIONS, AT BEDSIDE TO ASSESS AND PLANS FOR BEDSIDE US TO R/O CLOT. WILL CONTINUE TO MONITOR. PT CONTINUES TO REST QUIETLY, AGITATION/RESTLESSNESS MINIMAL. PRECEDEX AND CPN INFUSING PER ORDERS.
--- NOTE | 2019-01-28 18:49 | NUR ---
ULTRASOUND COMPLETED, NO CLOT NOTED PER US TECH, DR. MONTERO NOTIFIED. RASHAD ELEVATED ON PILLOW, WILL APPLY WARM PACK. MEDICATIONS CONTINUE TO INFUSE VIA PICC LINE PER ORDERS. PT RESTING QUIETLY, TOLERATED US WELL. METOPROLOL HELD FOR HR 50, SINUS, IRREGULAR. NO RUNS OF VTACH NOTED THIS SHIFT, OCCASIONAL PVC'S PRESENT. PT REMAINS ORIENTED TO SELF ONLY, DOES NOT FOLLOW COMMANDS, DOES NOT TRACK. PT NOTED TO SAY ONE CLEAR SENTENCE THIS SHIFT, OTHER VERBALIZATIONS WERE MOANS ONLY. PT FAIRLY CALM THIS SHIFT, CIWA SCORES IMPROVING. REPORT TO ONCOMING SHIFT.
[2019-01-28 19:57] LABS: Anion Gap 6 mmol/L (6-16); Blood Urea Nitrogen 33 mg/dL (8-24); Bun/Creatinine Ratio 47.4 (12.0-20.0); CO2, Blood 32 mmol/L (21-32); Calcium, Blood 7.8 mg/dL (8.5-10.1); Chloride, Blood 113 mmol/L (98-108); Glomerular Filtration Rate >60 (60-); Glucose, Blood 199 mg/dL (70-99); Sodium, Blood 151 mmol/L (136-145)
--- NOTE | 2019-01-28 20:00 | NUR ---
ASSUUMED CARE OF PT AT 1915. REPORT RECEIVED. PT PRESENTS IN BED. RESTING AT THIS TIME. ON PRECEDEX AT 1.4 MCG'S. PT IN NO APPARENT DISTRESS AT THIS TIME. WILL REVIEW CHART AND PLAN OF CARE FOR THIS PT.
--- NOTE | 2019-01-28 23:00 | NUR ---
PT DOES NOT FOLLOW COMMANDS, AND PULLS AGAINST RESTRAINTS. DR MONTERO HAS BEEN IN TO SEE PT. HAVE MEDICATED PT WITH ATIVAN WITH SOME AFFECT. 25 MCG FENTANYL GIVEN FOR POSSIBLE PAIN. PT CONTINUES ON 2 LITERS PER MINUTE PER NASAL CANNULA.
[2019-01-29 03:57] LABS: Base Excess Venous 11.9 mmol/L; Bicarbonate Venous 34.2 mmol/L (24.0-30.0); PCO2 Venous 36.9 mmHg (38-42); PO2 Venous 45.5 mmHg (38-42); pH Blood Venous 7.57 (7.34-7.37)
--- NOTE | 2019-01-29 04:00 | NUR ---
PT NOTED TO HAVE RESPIRATION RATES THAT DECREASE BELOW 10 BREATHS PER MINUTE. DECREASED PRECEDEX DRIP TO 1.2 MCG'S AND THEN TO 1.0 MCG'S. PT AWAKENS WITH THIS DECREASE AND BECOMES VERY AGITATED, AND VERY RESTLESS IN BED. DOES NOT REDIRECT. WILL NOT FOLLOW COMMANDS. RETURNED PRECEDEX RATE TO 1.4 MCG'S. HAVE MEDICATED PT WITH ATIVAN, AND SUBSEQUENTLY WITH 25 MCG FENTANYL WITH VERY LITTLE RESULTS. WILL CONTINUE TO MONITOR PT.
[2019-01-29 04:02] LABS: BASOPHILS ABSOLUTE AUTO 0.02 K/mm3 (0.00-0.23); BASOPHILS PERCENT AUTO 0 % (0-2); EOSINOPHILS PERCENT AUTO 0 % (0-6); Hematocrit 37.1 % (37.0-53.0); Hemoglobin 12.6 g/dL (13.5-17.5); IMMATURE GRAN ABSOLUTE AUTO 0.72 K/mm3 (0.00-0.10); IMMATURE GRAN PERCENT AUTO 5 % (0-1); LYMPHOCYTES ABSOLUTE AUTO 0.38 K/mm3 (0.84-5.20); LYMPHOCYTES PERCENT AUTO 3 % (21-46); MONOCYTES ABSOLUTE AUTO 0.45 K/mm3 (0.16-1.47); MONOCYTES PERCENT AUTO 3 % (4-13); Mean Platelet Volume 10.9 fL (9.1-12.4); NEUTROPHILS ABSOLUTE AUTO 12.97 K/mm3 (1.96-9.15); NEUTROPHILS PERCENT AUTO 89 % (41-73); NRBC ABSOLUTE 0.06 K/mm3 (0.00-0.02); NRBC Auto 0.4 /100 WBC (0.0-0.2); Platelet Count 275 K/mm3 (150-400); RDW Coefficient Variation 13.4 % (11.7-14.2); RDW Standard Deviation 55.9 fL (35.1-46.3); Red Blood Cell Count 3.32 M/mm3 (4.30-5.90); White Blood Cell Count 14.54 K/mm3 (4.00-11.30)
[2019-01-29 04:07] LABS: Mean Corpuscular Volume 112 fL (80-100)
[2019-01-29 04:20] LABS: Anion Gap 7 mmol/L (6-16); Blood Urea Nitrogen 33 mg/dL (8-24); Bun/Creatinine Ratio 47.8 (12.0-20.0); CO2, Blood 31 mmol/L (21-32); Calcium, Blood 7.9 mg/dL (8.5-10.1); Chloride, Blood 113 mmol/L (98-108); Creatinine, Blood 0.69 mg/dL (0.60-1.20); Glomerular Filtration Rate >60 (60-); Glucose, Blood 145 mg/dL (70-99); Phosphorus, Blood 2.7 mg/dL (2.5-4.9); Sodium, Blood 151 mmol/L (136-145)
--- NOTE | 2019-01-29 06:45 | NUR ---
PT HAS CONTINUED BEING VERY RESTLESS. PULLS AGGRESSIVELY AGAINST RESTRAINTS. DOES NOT FOLLOW ANY COMMANDS. DID HAVE APPROX 20 SECONDS SUSTAINED V TACH DURING NIGHT. NO FURTHER RUNS NOTED. PT'S POTASSIUM LEVEL THIS AM 3.0 THIS BEING REPLACED. DISCUSSED THIS WITH DR MONTERO. ORDERS HAVE BEEN RECEIVED. REPORT TO BE GIVEN TO JANNETH BARR.
--- NOTE | 2019-01-29 09:22 | NUR ---
CARE ASSUMED, ASSESSMENT COMPLETED. PT RESTLESS, MOANING, PULLING ON RESTRAINTS, CONFUSED, AGITATED. RR 40'S AND SHALLOW, HR 80'S, BP ELEVATED. ATIVAN ADMINISTERED, PRECEDEX INFUSING AT 1.4MCG/KG/HR PER ORDERS. LS CLEAR, DIMINISHED IN BASES, NO COUGH NOTED, SPO2 >90% ON 2L/NC. HR IRREGULAR WITH OCCASIONAL PVC'S, A RUN OF BIGEMINY NOTED WHICH RESOLVED WITH REPOSITIONING OF LEFT ARM WHERE PICC IS INSERTED. PICC TO L UPPER ARM INFUSING/FLUSHING WITHOUT DIFFICULTY, UPPER ARM REMAINS EDEMATOUS AND BRUISED, THOUGH EDEMA APPEARS TO BE IMPROVED FROM LAST EVENING. WILL CONTINUE TO MONITOR. PT RESPONDING WELL TO ATIVAN, RESTING QUIETLY, VS IMPROVING.
--- NOTE | 2019-01-29 12:33 | NUR ---
PICC LINE PULLED BACK. PICC LINE PULLED BY 4CM PER DR CORRAL, BASED OFF CXR.
--- NOTE | 2019-01-29 15:43 | NUR ---
PT SNORING LIGHTLY AT THIS TIME, NO RESTLESSNESS OR AGITATION NOTED. SPO2 96%, TITRATING O2 DOWN. TUBE FEEDING INFUSING VIA DOBHOFF, INITIATED AT 1530, PIVOT 1.5 AT 10ML/HR WITH 30ML WATER FLUSHES Q4H. NO RESIDUAL STOMACH CONTENTS PRIOR TO STARTING TF. VSS, PVC'S REMAIN PRESENT WITH OCCASIONAL 3 BEAT RUNS OF VT.
--- NOTE | 2019-01-29 19:29 | NUR ---
1800: PT MEDICATED WITH FENTANYL PER ORDERS, THEN REPOSITIONED IN BED, TOLERATED WELL. KPAD REMAINS ON LUE, PVC'S REMAIN. 1930: PT MEDICATED WITH ATIVAN PER ORDERS FOR RESTLESSNESS/AGITATION/TACHYPNEA, SPO2 MAINTAINING >90% ON RA. PT REPOSITIONED IN BED, KPAD TO LEFT UPPER ARM, RESTRAINTS IN PLACE. NEURO STATUS UNCHANGED, PT REMAINS INAPPROPRIATE AND DOES NOT FOLLOW COMMANDS OR RESPOND TO HIS NAME. REPORT TO ONCOMING SHIFT. PRECEDEX REMAINS AT 1.4 MCG, TF INFUSING PER ORDERS.
--- NOTE | 2019-01-30 01:54 | NUR ---
ASSUMED CARE OF PT AT 0145. REPORT RECEIVED. PT PRSENTS IN BED. CALLS OUT INNAUDIBLE WORDS OCCASSIONALY. WILL ASSESS AND MONITOR PT. WILL REVIEW CHART AND PLAN OF CARE FOR THIS PT.
--- NOTE | 2019-01-30 02:57 | NUR ---
PT DEFINITELY WAKING UP. IS MAKING A GROWLING SOUND AND FIGHTING RESTRAINTS. IS NOT ABLE TO MAKE HIS NEEDS KNOWN. DOES NOT RESPOND TO QUESTIONS. PT ADMINISTERED 4 MG ATIVAN AT THIS TIME. WILL KEEP PRECEDEX DRIP AT 1.2 MCG FOR THE TIME. WILL INCREASE IF NEEDED.
[2019-01-30 04:32] LABS: Hematocrit 36.5 % (37.0-53.0); Hemoglobin 12.4 g/dL (13.5-17.5); Mean Corpuscular HGB 37.1 pg (26.0-34.0); Mean Platelet Volume 10.8 fL (9.1-12.4); NRBC ABSOLUTE 0.09 K/mm3 (0.00-0.02); NRBC Auto 0.6 /100 WBC (0.0-0.2); Platelet Count 260 K/mm3 (150-400); RDW Coefficient Variation 13.6 % (11.7-14.2); RDW Standard Deviation 54.8 fL (35.1-46.3); Red Blood Cell Count 3.34 M/mm3 (4.30-5.90); White Blood Cell Count 14.77 K/mm3 (4.00-11.30)
[2019-01-30 04:46] LABS: Mean Corpuscular Volume 109 fL (80-100)
[2019-01-30 04:50] LABS: Albumin, Blood 2.5 g/dL (3.4-5.0); Anion Gap 4 mmol/L (6-16); Blood Urea Nitrogen 30 mg/dL (8-24); Bun/Creatinine Ratio 38.9 (12.0-20.0); CO2, Blood 34 mmol/L (21-32); Calcium, Blood 7.8 mg/dL (8.5-10.1); Chloride, Blood 111 mmol/L (98-108); Creatinine, Blood 0.77 mg/dL (0.60-1.20); Glomerular Filtration Rate >60 (60-); Glucose, Blood 92 mg/dL (70-99); Phosphorus, Blood 3.1 mg/dL (2.5-4.9); Sodium, Blood 149 mmol/L (136-145)
--- NOTE | 2019-01-30 07:07 | NUR ---
REPORT GIVEN TO JANNETH BARR. PT HAS BEEN RESTLESS THIS AM. HAS BEEN MEDICATED BY THIS RN TWICE WITH 4 MG ATIVAN IV. 25 MCG FENTANYL WITH MODERATE RELIEF.
--- NOTE | 2019-01-30 10:29 | NUR ---
0745: CARE ASSUMED, ASSESSMENT COMPLETED. PT IN BED, OPENS EYES SPONTANEOUSLY, DOES NOT TRACK OR FOLLOW COMMANDS, NO CLEAR WORDS, OCCASIONAL MOANING ONLY. HR IRREGULAR WITH FREQUENT PVC'S, BP SLIGHLTY ELEVATED, SPO2 >90% 2L/NC, NO COUGH NOTED. PT CONTINUES TO HAVE SHORT APNEIC PERIODS DURING SLEEP. EDEMA PRESENT, WEEPING IN RUE. TF INFUSING PER ORDERS VIA DOBHOFF, PRECEDEX AT 1.2MCG VIA PICC TO LUE. LUE REMAINS EDEMATOUS AND BRUISED, NO HEAT OR REDNESS NOTED AT PICC INSERTION SITE. 1030: S SHAYNA AND DIVYA IN TO SEE PT, NEW ORDERS. EKG AND CXR COMPLETED, DR. SU, REVIEWED EKG AT BEDSIDE. PT CONTINUES TO HAVE FREQUENT PVC'S, OCCASIONAL BIGEMINY, AND RUNS OF 3-5 BEAT VTACH. PT WAKING MORE EASILY, BEGINNING TO MUMBLE WORDS, SOMETIMES COMPREHENSIBLE, REPEATING WORDS THAT ARE SPOKEN TO HIM. DOES NOT FOLLOW COMMANDS OR TRACK MOVEMENTS.
--- NOTE | 2019-01-30 12:51 | NUR ---
PT REMAINS RESTLESS AT TIMES, SLEEPING INTERMITTENTLY. TITRATING PRECEDEX DOWN ABLE. PT BECOMING MORE ALERT, SEEMS TO BE TRYING TO FOLLOW SOME COMMANDS, IS NOW TRACKING. WHEN ASKED, "WHAT ARE YOU DOING?" PT RESPONDS, "I DON'T KNOW." SPEECH REMAINS MOSTLY MUMBLED BUT SOMETIMES MORE CLEAR.
--- NOTE | 2019-01-30 14:55 | NUR ---
PT PULLED CACERES CATH TUBING OUT OF STAT LOCK AND PROCEDED TO PULL ON CATHETER, CATH NO LONGER DRAINING, BLADDER SCAN SHOWS 300ML IN BLADDER. CACERES DC'D, SCANT AMOUNT OF BLOOD FROM URETHRA UPON DC. CACERES RE INSERTED, INITIAL URINE PINK WITH A SMALL CLOT, THEN CLEAR YELLOW URINE DRAINING. 250ML OUT, SAMPLE SENT TO LAB. CACERES SECURED, PATENT AND DRAINING TO GRAVITY AT THIS TIME. PT SNORING LIGHLTY, SLEPT THROUGH REINSERTION. CONTINUING TO TITRATE PRECEDEX DOWN.
[2019-01-30 15:19] LABS: Source, Urine Catheter
[2019-01-30 15:25] LABS: Appearance, Urine Hazy (Clear); Bilirubin, Urine Neg (Neg); Blood, Urine 5+ (Neg); Color, Urine Yellow (P-Yellow); Glucose Qualitative, Urine Neg (Neg); Ketones, Urine Neg (Neg); Leukocyte Esterase, Urine 2+ (Neg); Nitrite, Urine Neg (Neg); Protein, Urine 1+ (Neg); Specific Gravity, Urine 1.015 (1.003-1.022); Urobilinogen, Urine NORM (Normal)
[2019-01-30 15:47] LABS: Bacteria Mod /hpf; Hyaline Casts 0-2 /lpf (0-2); Mucus Light (0-Heavy); Red Blood Cells, Urine 50-100 /hpf (0-2); Squamous Epithelial Cells Rare /hpf (Few)
--- NOTE | 2019-01-30 18:30 | NUR ---
PT BECAME MORE ALERT AND MORE EASILY ROUSABLE PRECEDEX TITRATED DOWN. AROUND 1740 PT WAS AWAKE, DROWSY, CALM AND COOPERATIVE, NOT PULLING AGAINST RESTRAINTS OR MOANING. PT REQUESTED WATER, SPEECH SLOW, MOUTH DRY. ORAL CARE PROVIDED. PT REPOSITIONED, DENIES PAIN OR DISCOMFORT, VSS. PT REQUESTING WATER OR DIET SPRITE, PUT IN HIGH FOWLERS, MOUTH SWABBED WITH WATER, ONE ICE CHIP GIVEN. PT TOLERATED ICE CHIP WITHOUT CHOKING, ORAL SUCTIONING PROVIDED, HOB LAID BACK A LITTLE BUT REMAINS HIGH PER PT REQUEST. PRECEDEX OFF AT 1830, PT REMAINS CALM AND COOPRATIVE. RESTRAINTS REMAIN ON AT THIS TIME UNTIL PT IS MORE ALERT. NO COMBATIVE BEHAVIORS, PT ORIENTED TO SELF, FOLLOWS COMMANDS, NOT ORIENTED TO TIME OR SITUATION. RA. REPORT TO ONCOMING SHIFT.
--- NOTE | 2019-01-30 19:46 | NUR ---
PATIENT IN BED AWAKE, SPEECH DIFFICULT TO UNDERSTAND AT TIMES. FOLLOWING SIMPLE DIRECTIONS AT TIMES, CONTINUES TO BE IMPULSIVE AND SPONTANEOUS, REACHING FOR NG DESPITE REMINDERS TO KEEP LINES AND TUBES IN PLACE. BILAT WRIST RESTRAINTS REMAIN IN PLACE TO PREVENT ACCIDENTAL REMOVAL OF LINES. PRECEDEX REMAINS OFF AT THIS TIME. ORAL CARE DONE, PATIENT SPEECH CLEARED SLIGHTLY ORIENTATED, TO MONTH AND YEAR, UNSURE OF PLACE. PATIENT GRUNTING AND HOLDING HIS BREATH, PULLING HIS KNEES UP. WHEN ASKED WHAT HE WAS DOING PATIENT VERBALIZED THAT HE WANTING TO GET UP, EXPLAINED THAT HE WILL STAY HERE IN BED TONIGHT WHILE HE IS WAKING UP. EXPLAINED NEED FOR WRIST RESTRAINTS UNTIL HE CAN CONSISTENTLY FOLLOWING DIRECTIONS TO PROTECT HIS LINES AND KEEP HIM SAFE, PATIENT NEEDING FREQUENT REMINDING. DOBBHOFF IN PLACE WITH TUBE FEEDING AT 10/HR.
[2019-01-31 04:32] LABS: BASOPHILS ABSOLUTE AUTO 0.03 K/mm3 (0.00-0.23); BASOPHILS PERCENT AUTO 0 % (0-2); EOSINOPHILS PERCENT AUTO 0 % (0-6); Hematocrit 35.2 % (37.0-53.0); Hemoglobin 12.3 g/dL (13.5-17.5); IMMATURE GRAN ABSOLUTE AUTO 0.41 K/mm3 (0.00-0.10); IMMATURE GRAN PERCENT AUTO 3 % (0-1); LYMPHOCYTES ABSOLUTE AUTO 0.52 K/mm3 (0.84-5.20); LYMPHOCYTES PERCENT AUTO 4 % (21-46); MONOCYTES ABSOLUTE AUTO 0.69 K/mm3 (0.16-1.47); MONOCYTES PERCENT AUTO 5 % (4-13); Mean Corpuscular HGB 37.8 pg (26.0-34.0); Mean Corpuscular HGB Conc 34.9 g/dL (31.5-36.5); Mean Corpuscular Volume 108 fL (80-100); Mean Platelet Volume 11.1 fL (9.1-12.4); NEUTROPHILS ABSOLUTE AUTO 12.81 K/mm3 (1.96-9.15); NEUTROPHILS PERCENT AUTO 89 % (41-73); NRBC ABSOLUTE 0.03 K/mm3 (0.00-0.02); NRBC Auto 0.2 /100 WBC (0.0-0.2); Platelet Count 243 K/mm3 (150-400); RDW Coefficient Variation 13.3 % (11.7-14.2); RDW Standard Deviation 53.2 fL (35.1-46.3); Red Blood Cell Count 3.25 M/mm3 (4.30-5.90); White Blood Cell Count 14.46 K/mm3 (4.00-11.30)
[2019-01-31 04:50] LABS: Magnesium, Blood 1.7 mg/dL (1.6-2.4)
[2019-01-31 04:58] LABS: Albumin, Blood 2.3 g/dL (3.4-5.0); Anion Gap 6 mmol/L (6-16); Blood Urea Nitrogen 20 mg/dL (8-24); Bun/Creatinine Ratio 28.9 (12.0-20.0); CO2, Blood 33 mmol/L (21-32); Calcium, Blood 7.3 mg/dL (8.5-10.1); Chloride, Blood 105 mmol/L (98-108); Creatinine, Blood 0.69 mg/dL (0.60-1.20); Glomerular Filtration Rate >60 (60-); Glucose, Blood 239 mg/dL (70-99); Phosphorus, Blood 2.2 mg/dL (2.5-4.9); Potassium, Blood 2.2 mmol/L (3.5-5.5); Sodium, Blood 144 mmol/L (136-145)
--- NOTE | 2019-01-31 06:31 | NUR ---
SUMMARY PATIENT AWAKE MOST OF THE NIGHT, RESTLESS AND AGITATED PULLING ON WRIST RESTRAINTS. PULLING ON CORDS AND LINES WHEN UNRESTRAINED. PRECEDEX RESTARTED AND TITRATING UP TO 0.7 MCG. SPEECH GARBLED AND DIFFICULT TO UNDERSTAND AT TIMES, FOLLOWING DIRECTIONS, BUT IMPULSIVE AND UNPREDICTABLE. AM LABS CALLED TO DOCTOR CORRAL SEE NEW ORDERS. FREQUENT ECTOPY T/O NIGHT INCREASING WHEN PATIENT UPSET AND PULLING ON RESTRAINTS. TUBE FEEDING CONTINUES VIA DOBBHOFF AT GOAL RATE OF 10/HR
--- NOTE | 2019-01-31 07:42 | NUR ---
ASSUMED CARE REPORT FROM KATHY Cifuentes RN. PATIENT HAS EYES OPEN, BUT DOES NOT MAKE EYE CONTACT OR RESPOND TO HIS NAME. PRECEDEX AT 0.7 MCG/KG/HR
--- NOTE | 2019-01-31 11:42 | NUR ---
MD VISIT DR. PA IN. PRECEDEX STOPPED. PATIENT DANGLED AT SIDE OF BED WITH PHYSICAL THERAPY.
[2019-01-31 16:16] LABS: Magnesium, Blood 1.7 mg/dL (1.6-2.4)
[2019-01-31 16:17] LABS: Phosphorus, Blood 2.7 mg/dL (2.5-4.9); Potassium, Blood 2.6 mmol/L (3.5-5.5)
--- NOTE | 2019-01-31 19:20 | NUR ---
PATIENT TOOK SIPS OF WATER FROM SPOON. MEDS WITH APPLESAUCE. REPOSITIONED IN BED FREQUENTLY. REPORT GIVEN TO KATHY Cifuentes RN
--- NOTE | 2019-01-31 21:09 | NUR ---
PATIENT IN BED AWAKE, BUT CONFUSED, ORIENTATED TO SELF AND FOLLOWING DIRECTIONS. PATIENT RESTLESS AND UNPREDICTABLE, NEEDING FREQUENT REMINDERS TO STAY IN BED AND NOT PULL ON LINES AND CORDS. WRIST RESTRAINTS REMAIN OFF AT THIS TIME. PATIENT VERBALIZED THAT HIS LOW BACK IS PAINFUL, RELIEF WITH REPOSITIONING. BED ALARM ON AND WILL ATTEMPT TO KEEP PRECEDEX OFF TONIGHT.
--- NOTE | 2019-02-01 03:16 | NUR ---
PATIENT HAD COUGHING WHEN ASSISTED WITH SIP OF WATER AT APROX 0200, PATIENT NOW HAS MOIST SOUNDING UPPER AIRWAY, PATIENT ENCOURAGED TO COUGH. LUNG SOUNDS REMAIN CLEAR. OXYGEN INCREASED TO 3L/NC DUE TO BIOX 88-92% ON 2L/NC
[2019-02-01 04:22] LABS: BASOPHILS ABSOLUTE AUTO 0.04 K/mm3 (0.00-0.23); BASOPHILS PERCENT AUTO 0 % (0-2); EOSINOPHILS PERCENT AUTO 0 % (0-6); Hematocrit 37.4 % (37.0-53.0); Hemoglobin 13.1 g/dL (13.5-17.5); IMMATURE GRAN ABSOLUTE AUTO 0.43 K/mm3 (0.00-0.10); IMMATURE GRAN PERCENT AUTO 3 % (0-1); LYMPHOCYTES ABSOLUTE AUTO 0.57 K/mm3 (0.84-5.20); LYMPHOCYTES PERCENT AUTO 3 % (21-46); MONOCYTES ABSOLUTE AUTO 0.81 K/mm3 (0.16-1.47); MONOCYTES PERCENT AUTO 5 % (4-13); Mean Corpuscular HGB 37.6 pg (26.0-34.0); Mean Corpuscular Volume 108 fL (80-100); Mean Platelet Volume 11.2 fL (9.1-12.4); NEUTROPHILS ABSOLUTE AUTO 15.43 K/mm3 (1.96-9.15); NEUTROPHILS PERCENT AUTO 89 % (41-73); NRBC ABSOLUTE 0.04 K/mm3 (0.00-0.02); NRBC Auto 0.2 /100 WBC (0.0-0.2); Platelet Count 273 K/mm3 (150-400); RDW Coefficient Variation 13.6 % (11.7-14.2); RDW Standard Deviation 53.6 fL (35.1-46.3); Red Blood Cell Count 3.48 M/mm3 (4.30-5.90); White Blood Cell Count 17.28 K/mm3 (4.00-11.30)
[2019-02-01 04:41] LABS: Albumin, Blood 2.5 g/dL (3.4-5.0); Anion Gap 6 mmol/L (6-16); Blood Urea Nitrogen 12 mg/dL (8-24); Bun/Creatinine Ratio 17.2 (12.0-20.0); CO2, Blood 33 mmol/L (21-32); Calcium, Blood 7.5 mg/dL (8.5-10.1); Chloride, Blood 108 mmol/L (98-108); Glomerular Filtration Rate >60 (60-); Glucose, Blood 185 mg/dL (70-99); Phosphorus, Blood 1.8 mg/dL (2.5-4.9); Sodium, Blood 147 mmol/L (136-145)
--- NOTE | 2019-02-01 06:20 | NUR ---
SUMMARY PATIENT AWAKE MOST OF THE NIGHT. NEEDING FREQUENT REMINDING TO KEEP HIS FEET IN BED AND TO KEEP BIOX PROBE AND HEART MONITOR IN PLACE. PATIENT KAYY PO MEDICATIONS IN APPLE SAUCE OR PUDDING. HAD AN EPISODE OF COUGHING WITH SIP OF WATER WHEN HOB WAS NOT ELEVATED HIGH ENOUGH. PRECEDEX REMAINS OFF AND NO ATIVAN WAS GIVEN DURING THE NIGHT. LIBRIUM PO GIVEN ONCE.
--- NOTE | 2019-02-01 06:35 | NUR ---
DOCTOR JOHNSON NOTIFIED OF AM CHEM. ORDER OBTAINED FOR [facility]
--- NOTE | 2019-02-01 08:29 | NUR ---
ASSUMED CARE OF PT AT 0700. REPORT FROM JANNETH CHAVEZ. PT APPEARS TO BE SLEEPING IN BED, SLIGHTLY OPENS EYES c STRONG VERBAL STIMULI. DOES NOT FOLLOW DIRECTIONS. APPEARS TO FALL BACK ASLEEP s CONSTANT STIMULI. GARBLED SOUNDS. RESTLESS IN BED, MOVEMENT TO ALL EXTREMITIES. PT MOUTH BREATHING, O2 AT 2L VIA NC TO MOUTH. GARGLED, WEAK COUGH. LUNGS COARSE THROUGHOUT c CRACKLES. ABD FIRM, DISTENDED. KPHOS AND D5 INFUSING VIA PICC. PT BRIEFLY IN SVT, HR 170'S, AND CONVERTED SELF TO SR. HYPERTENSION NOTED. MEDICATED c HYDRALZINE 10 MG IVP. WILL CONTINUE TO MONITOR.
--- NOTE | 2019-02-01 08:38 | NUR ---
SPOKE c DR PA REGARDING SWALLOWING CONCERNS, PT FAILED PRE ASSESSMENT FOR SWALLOW EVAL. PLANS FOR DOBHOFF AND REPEAT CHEST XRAY.
--- NOTE | 2019-02-01 09:37 | NUR ---
DOBHOFF PLACEMENT, DOBHOFF PLACED TO RIGHT NARE, SECURED TO TOP OF NOSE, SECURED AT 65. NO RESISTANCE, PT TOLERATED WELL. NO COUGH OR GAG c PLACEMENT. PLACEMENT VERIFIED VIA CHEST XRAY. TUBE FEEDINGS RESUMED AT 25 ML/HR c 30 ML FLUSH Q4. WILL INCREASE DURING SHIFT.
--- NOTE | 2019-02-01 10:04 | NUR ---
DR PA AND DR TAVERAS AT BEDSIDE. WILL CONTINUE TO ATTEMPT TO KEEP PT OFF PRECEDEX. WILL D/C IVF AND LASIX. CONTINUE TUBE FEEDING AND INCREASE FLUSH TO 200ML Q4.
--- NOTE | 2019-02-01 16:21 | NUR ---
PT RESTLESS IN BED. INTERMITTANTLY PULLING AT RESTRAINTS. REDIRECTS FOR SHORT PERIOD OF TIME. FAMILY AT BEDSIDE. PT STATES "I WANT TO GET FRESH AIR." SLURRED SPEECH BUT IMPROVED THROUGHOUT THE DAY.
[2019-02-01 16:31] LABS: Magnesium, Blood 1.7 mg/dL (1.6-2.4); Phosphorus, Blood 2.4 mg/dL (2.5-4.9); Potassium, Blood 2.8 mmol/L (3.5-5.5)
--- NOTE | 2019-02-01 17:50 | NUR ---
SHIFT SUMMARY PT LAYING IN BED. INTERMITTANTLY PULLING AT RESTRAINTS. REDIRECTABLE FOR SHORT PERIODS OF TIME, DOES NOT FOLLOW COMMANDS. GARBLED SPEECH THAT IS OCCASIONALLY UNDERSTOOD. OPENS EYES SPONTANEOUSLY. RESTLESS IN BED. PT GIVEN FENTANYL DURING SHIFT s LITTLE RELIEF OF PAIN. PT FAILED BEDSIDE SWALLOW EVAL THIS AM. DOBBHOFF PLACED AND TUBE FEEDING STARTED. FREE WATER INCREASED PER DR AP. HYPOKALEMIA NOTED AND ORDERS FOR KPHOS IVPB STARTED. WILL CONTINUE TO CLEAR PT OF SEDATION TO ASSESS MENTAL STATUS.
[2019-02-02 04:30] LABS: Albumin, Blood 2.2 g/dL (3.4-5.0); Anion Gap 4 mmol/L (6-16); Blood Urea Nitrogen 12 mg/dL (8-24); CO2, Blood 36 mmol/L (21-32); Calcium, Blood 7.2 mg/dL (8.5-10.1); Chloride, Blood 108 mmol/L (98-108); Creatinine, Blood 0.71 mg/dL (0.60-1.20); Glomerular Filtration Rate >60 (60-); Glucose, Blood 204 mg/dL (70-99); Magnesium, Blood 1.7 mg/dL (1.6-2.4); Potassium, Blood 3.1 mmol/L (3.5-5.5); Sodium, Blood 148 mmol/L (136-145); Triglycerides 136 mg/dL (30-160)
[2019-02-02 04:52] LABS: BASOPHILS ABSOLUTE AUTO 0.03 K/mm3 (0.00-0.23); BASOPHILS PERCENT AUTO 0 % (0-2); EOSINOPHILS ABSOLUTE AUTO 0.01 K/mm3 (0.00-0.68); EOSINOPHILS PERCENT AUTO 0 % (0-6); Hematocrit 38.7 % (37.0-53.0); Hemoglobin 13.2 g/dL (13.5-17.5); IMMATURE GRAN ABSOLUTE AUTO 0.51 K/mm3 (0.00-0.10); IMMATURE GRAN PERCENT AUTO 3 % (0-1); LYMPHOCYTES ABSOLUTE AUTO 0.53 K/mm3 (0.84-5.20); LYMPHOCYTES PERCENT AUTO 3 % (21-46); MONOCYTES ABSOLUTE AUTO 0.63 K/mm3 (0.16-1.47); MONOCYTES PERCENT AUTO 3 % (4-13); Mean Corpuscular HGB 37.5 pg (26.0-34.0); Mean Corpuscular HGB Conc 34.1 g/dL (31.5-36.5); Mean Corpuscular Volume 110 fL (80-100); Mean Platelet Volume 11.3 fL (9.1-12.4); NEUTROPHILS PERCENT AUTO 91 % (41-73); NRBC ABSOLUTE 0.03 K/mm3 (0.00-0.02); NRBC Auto 0.2 /100 WBC (0.0-0.2); Platelet Count 231 K/mm3 (150-400); RDW Coefficient Variation 13.8 % (11.7-14.2); RDW Standard Deviation 55.9 fL (35.1-46.3); Red Blood Cell Count 3.52 M/mm3 (4.30-5.90); White Blood Cell Count 19.61 K/mm3 (4.00-11.30)
--- NOTE | 2019-02-02 07:15 | NUR ---
SUMMARY PATIENT AWAKE T/O NIGHT YELLING OUT AT TIMES. THE NIGHT HAS PROGRESSED SPEECH HAS BECOME CLEARER AND EASIER TO UNDERSTAND. PATIENT CONTINUES TO NOT ALWAYS FOLLOW DIRECTIONS. PATIENT PULLING AT NG WHEN UNRESTRAINED. BILAT WRIST RESTRAINTS CONTINUE TO PREVENT ACCIDENTAL REMOVAL OF LINES AND TUBES. TUBE FEEDING IS NOW AT GOAL RATE OF 45/HR. PATIENT INCONT OF 2 LARGE SOFT BROWN BM'S DURING THE NIGHT. PATIENT MEDICATED ONCE WITH LIBRIUM THIS MORNING DUE TO INCREASED AGITATION AND YELLING OUT.
--- NOTE | 2019-02-02 07:30 | NUR ---
BEGINNING OF SHIFT Assumed care at 0700. Bedside report recieved from Roselyn LAGUNAS. Pt on 2 LPM NC. Lungs clear with dim bases. SpO2 90% or greater. Sinus rhtyhm per monitor. Opens eyes to verbal stimulus. Pt moaning, speech incomprehensible during report. Pt does not follow directions or answer questions. Bilateral soft wrist restraints as pt attempts to remove dobhoff when not restrained. TF and flush infusing per orders through dobhoff.
--- NOTE | 2019-02-02 08:10 | NUR ---
WIDE QRS TACHYCARDIA Pt had 52 beat run of wide QRS tachycardia. This RN at bedside during episode. Pt alert and breathing. Pulse palpable. Returned to sinus rhythm without any intervention.
--- NOTE | 2019-02-02 10:31 | NUR ---
UPDATE Dr Maki in to see pt. Pt awake. Restless. Opens eyes. Moans. Appears uncomfortable. Repositioned supine with HOB elevated 30 degrees. Pt appears more comforatble. Does not answer questions. TF system changed. Statlock changed.
--- NOTE | 2019-02-02 10:48 | NUR ---
DR PA IN ROOM Plan of care discussed. Discussed antibiotics added by Dr Maki due to increased WBC count and concern for aspiration. Discussed increasing blood sodium level. Plan to increase free water flush through dobhoff. Discussed sedation. Continue with ativan, fentanyl, and libruium sparingly. Discussed zyprexa dosing. Plan to keep pt ICU status at this time.
--- NOTE | 2019-02-02 14:50 | NUR ---
UPDATE Pt OOB into recliner using ceiling lift. Pt OOB for about 3 hours. Friends visited pt while he was up in recliner. Pt repeately dangled leg to the side of the leg rest but would lift his leg back onto the leg rest when instructed to do so. Tylenol given PT as pt stated "yes" when asked if he was having pain. When asked where pain was located, pt stated "head". Pt does not provide answers when asked about name, date of , current location, or date. Pt in bed at this time, pulling on restraints, and calling out. When asked why he is yelling, pt shouts "Get me out of here!". Pt also yells out several profanities.
--- NOTE | 2019-02-02 18:24 | NUR ---
SUMMARY Pt alert for majority of shift. Pt does not state name, date of , location, or date when asked to do so. Pt does follow directions during repositioning, but does nto assistant health educator this RN's fingers when asked to do so. Pt has been in sinus rhtyhm, but has occasional runs of tachycardia. Pt typically alert and agitated during episodes of ectopy. Pt has not had BM this shift. TF remains infusing per orders. Flush increased today due to hypernatremia per Dr Velazquez. Pt had friends visit today. Update provided as permitted by signed verbal release of inforation sheet. Pt has been hypertensive for majority of shift. Call placed to Dr Maki at 1720 to update. New orders given. Will continue to closely monitor until care handoff and bedside report with oncoming RN.
--- NOTE | 2019-02-02 20:00 | NUR ---
ASSESSMENT PT SLEEPING BUT AWAKENS TO VERBAL STIMULI. PT CONFUSED AND YELLING. PICC DRSG TO LEFT UPPER ARM ROLLING UP. DRSG REMOVED AND NEW DRSG APPLIED. SITE WITH SMALL AMT BRUISING NOTED FROM REMOVING TAPE. PT INCONT LOOSE BROWN. HENNY CARE AND LINEN CHANGE DONE. PT REPOSITIONED TO LEFT SIDE WITH HOB UP. BILAT SOFT WRIST RESTRAINTS ON. PT REACHING FOR DOBHOFF WHEN RESTRAINT REMOVED. SPEECH SLURRED AND HARD TO UNDERSTAND. PT NOT FOLLOWING INSTRUCTIONS. TUBE FEED PIVOT 1.5 AT GOAL RATE OF 45 ML/HR. CCAERES CATH PATENT DRAINING CLEAR YELLOW URINE
--- NOTE | 2019-02-02 21:33 | NUR ---
PAIN PT AGITATED AND C/O BACK PAIN 7-12/04 MED WITH FENTANYL 25 MCQ
--- NOTE | 2019-02-02 22:32 | NUR ---
PAIN PT YELLING AND AGITATED. REPOSITIONED. ORAL CARE DONE. PT STATED,"I WANT TO EAT A HAMBURGER". EXPLAINED NPO. PT STATES,"I DON'T FUCKING CARE". PT YELLING ABOUT BACK PAIN STATES,"YES IT FUCKING HURTS. -12/04. THE LAST PAIN MED DIDN'T FUCKING WORK". PT MED WITH FENTAYL 50 MCQ
--- NOTE | 2019-02-02 22:57 | NUR ---
PT SLEEPING WITH MOUTH OPEN. APNEA NOTED WITH SPO2 DOWN TO 70%. PLACED O2 IN MOUTH AND INCREASED TO 4 LITERS. SPO2 [id number]% WHILE SLEEPING
--- NOTE | 2019-02-03 02:33 | NUR ---
PAIN PT YELLING AND AGITATED. STATES,"CUT THESE OFF. MY FUCKING BACK HURTS 12/04". MED WITH FENTANYL 50 MCQ
[2019-02-03 03:27] LABS: Hematocrit 35.2 % (37.0-53.0); Hemoglobin 11.8 g/dL (13.5-17.5); Mean Corpuscular HGB 37.5 pg (26.0-34.0); Mean Corpuscular HGB Conc 33.5 g/dL (31.5-36.5); Mean Corpuscular Volume 112 fL (80-100); Mean Platelet Volume 11.4 fL (9.1-12.4); Platelet Count 181 K/mm3 (150-400); RDW Coefficient Variation 13.9 % (11.7-14.2); RDW Standard Deviation 56.8 fL (35.1-46.3); Red Blood Cell Count 3.15 M/mm3 (4.30-5.90); White Blood Cell Count 17.65 K/mm3 (4.00-11.30)
[2019-02-03 03:44] LABS: Anion Gap 3 mmol/L (6-16); Blood Urea Nitrogen 17 mg/dL (8-24); Bun/Creatinine Ratio 24.1 (12.0-20.0); CO2, Blood 36 mmol/L (21-32); Calcium, Blood 7.2 mg/dL (8.5-10.1); Chloride, Blood 108 mmol/L (98-108); Creatinine, Blood 0.71 mg/dL (0.60-1.20); Glomerular Filtration Rate >60 (60-); Glucose, Blood 174 mg/dL (70-99); Magnesium, Blood 1.7 mg/dL (1.6-2.4); Phosphorus, Blood 2.1 mg/dL (2.5-4.9); Potassium, Blood 3.4 mmol/L (3.5-5.5); Sodium, Blood 147 mmol/L (136-145)
[2019-02-03 04:23] LABS: BAND PERCENT MAN 1 % (0-8); BASOPHILS PERCENT MAN 0 % (0-2); EOSINOPHILS PERCENT MAN 0 % (0-6); LYMPHOCYTES ABSOLUTE MAN 0.17 K/mm3 (0.84-5.20); LYMPHOCYTES PERCENT MAN 1 % (21-46); MONOCYTES ABSOLUTE MAN 1.05 K/mm3 (0.16-1.47); MONOCYTES PERCENT MAN 6 % (4-13); MYELOCYTE ABSOLUTE MAN 0.17 K/mm3 (0.00-0.00); MYELOCYTE PERCENT MAN 1 % (0-0); NEUTROPHILS ABSOLUTE MAN 16.23 K/mm3 (1.96-9.15); SEG NEUTROPHILS PERCENT MAN 91 % (41-73); TOTAL CELLS COUNTED 100
--- NOTE | 2019-02-03 06:06 | NUR ---
SHIFT SUMMARY PT RESTLESS DURING THE NIGHT. SPEECH CLEARER. MED WITH FENTANYL FOR C/O BACK PAIN. PT RECEIVED METOPROLO AND HYDRALAZINE FOR HTN DURING THE NIGHT. PT TURNED Q2HR WITH ORAL CARE DONE Q2-4 HR. BILAT WRIST RESTRAINTS ON. PT HAD PERIODS OF SLEEP APNEA WITH SOP2 DECREASING DOWN TO 70%'S. O2 PLACE IN MOUTH AND INCREASE TO 4 LITERS WHILE SLEEPING. SPO2 INCREASED TO MID 90%. REPORT TO ON COMING NURSE
--- NOTE | 2019-02-03 12:23 | NUR ---
SHIFT ASSESSMENT: PT INTERMITTENTLY AGITATED AND PULLING ON RESTRAINTS. PT IS ORIENTED TO SELF, PLACE, YEAR, AND IS ABLE TO FOLLOW COMMANDS. MAIN COMPLAINT IS LOWER BACK PAIN FOR WHICH HE RECEIVED 50MCG OF FENTANYL. HEART SOUNDS ARE REGULAR BUT DISTANT. LUNG SOUNDS ARE DIMINISHED WITH CRACKLES. WEAK COUGH IS PRESENT AND PRODUCING SMALL AMTS OF PINK TINGED SPUTUM. ABD IS DISTENDED AND FIRM WITH HYPOACTIVE BOWEL TONES. PT HAD A MED SIZE LOOSE STOOL. PERICARE DONE. L ABD HAS MULTIPLE BRUISES. R ABD DRESSING CLEAN. MULTIPLE ABRASIONS TO R LEG. PHYSICAL THERAPY VISITED PT. PT CURRENTLY RESTING COMFORTABLY IN BED. BED IS IN CHAIR POSITION.
--- NOTE | 2019-02-03 12:50 | NUR ---
GLUCERNA 1.2 STARTED AT 25 MLS/HR
--- NOTE | 2019-02-03 16:07 | NUR ---
PT FAILED BEDSIDE SWALLOW STUDY. CALL PLACED TO DR TAVERAS FOR SPEECH THERAPY CONSULT. VERBAL GIVEN
--- NOTE | 2019-02-03 16:45 | NUR ---
PT AGITATED AND CALLING OUT THROUGHOUT DAY. PT HAS BECOME MORE ALERT AND SPEECH HAS BECOME MORE CLEAR THROUGHOUT THIS SHIFT. PT IS ORIENTED TO SELF, PLACE, AND YEAR PT IS ALSO ABLE TO OBEY COMMANDS FOR SHORT PERIODS OF TIME. SR WITH HR 70-80S. PT BP ELEVATED TO SBP 190 DURING TIMES OF AGITATION. AT REST SBP IN THE 150'S. LUNG SOUNDS DIMINISHED WITH CRACKLES. CURRENTLY ON 4L VIA NC ABD IS DISTENDED AND FIRM WITH HYPOACTIVE BOWEL TONES. PT HAS DOBHOFF WITH TUBE FEEDINGS AND MEDS. PT HAD A SMALL LOOSE BM THIS AM. FLOEY REMAINS IN PLACE WITH STRICT I&O. BRUISING TO L SIDE ABD. R SIDE ABD DRESSING IS CLEAN AND DRY. MULTIPLE ABRASIONS TO ABD AND R THIGH. UPPER EXTREMITIES REMAIN EDEMATOUS, 2+, WITHOUT WEEPING. R UPPER ARM DRESSING ARE INTACT. PHYSICAL THERAPY WORKED WITH PT TODAY AND A SPEECH THERAPY CONSULT WAS ORDERED. WITH ALENA ASSISTANCE PT WAS UP TO THE CHAIR TODAY. PICC LINE IN L UPPER ARM WAS REMOVED AND A POWERGLIDE PLACED IN R UPPER ARM.
--- NOTE | 2019-02-03 19:14 | NUR ---
ASSUMED CARE RECEIVED REPORT FROM ALIZE RN. PT IS LYING IN BED ASLEEP. HE HAS A PG THAT IS SALINE LOCKED, A PATENT CACERES HANGING TO GRAVITY, A DOBHOF THAT HAS GLUCERNA 1.2 INFUSING AT 25ML/HR, AND A NC AT 4LPM. HE HAS NUNU, AND IS DESAT'ING BUT HAS SIGNED A REFUSAL FOR CPAP FORM. WILL CONSIDER BETTER OXYGENATION METHODS. HR AND BP STABLE AT THE MOMENT. BED IS LOW AND LOCKED. RESTRAINTS ARE SECURED TO PT AND BED.
[2019-02-04 03:39] LABS: BASOPHILS ABSOLUTE AUTO 0.04 K/mm3 (0.00-0.23); BASOPHILS PERCENT AUTO 0 % (0-2); EOSINOPHILS ABSOLUTE AUTO 0.01 K/mm3 (0.00-0.68); EOSINOPHILS PERCENT AUTO 0 % (0-6); Hemoglobin 12.7 g/dL (13.5-17.5); IMMATURE GRAN ABSOLUTE AUTO 0.48 K/mm3 (0.00-0.10); IMMATURE GRAN PERCENT AUTO 2 % (0-1); LYMPHOCYTES ABSOLUTE AUTO 0.73 K/mm3 (0.84-5.20); LYMPHOCYTES PERCENT AUTO 4 % (21-46); MONOCYTES ABSOLUTE AUTO 0.56 K/mm3 (0.16-1.47); MONOCYTES PERCENT AUTO 3 % (4-13); Mean Corpuscular HGB 37.6 pg (26.0-34.0); Mean Corpuscular HGB Conc 33.4 g/dL (31.5-36.5); Mean Corpuscular Volume 112 fL (80-100); NEUTROPHILS ABSOLUTE AUTO 19.23 K/mm3 (1.96-9.15); NEUTROPHILS PERCENT AUTO 91 % (41-73); RDW Coefficient Variation 14.2 % (11.7-14.2); RDW Standard Deviation 58.9 fL (35.1-46.3); Red Blood Cell Count 3.38 M/mm3 (4.30-5.90); White Blood Cell Count 21.05 K/mm3 (4.00-11.30)
[2019-02-04 03:40] LABS: Mean Platelet Volume 11.6 fL (9.1-12.4); Platelet Count 161 K/mm3 (150-400)
[2019-02-04 03:53] LABS: Anion Gap 3 mmol/L (6-16); Blood Urea Nitrogen 18 mg/dL (8-24); Bun/Creatinine Ratio 23.7 (12.0-20.0); CO2, Blood 33 mmol/L (21-32); Calcium, Blood 7.7 mg/dL (8.5-10.1); Chloride, Blood 106 mmol/L (98-108); Creatinine, Blood 0.76 mg/dL (0.60-1.20); Glomerular Filtration Rate >60 (60-); Glucose, Blood 145 mg/dL (70-99); Magnesium, Blood 1.7 mg/dL (1.6-2.4); Potassium, Blood 4.8 mmol/L (3.5-5.5); Sodium, Blood 142 mmol/L (136-145)
--- NOTE | 2019-02-04 06:31 | NUR ---
SHIFT SUMMARY PT STARTED OUT SHIFT ADEQUETLY SEDATED WITH PRN FENTANYL, HOWEVER, THE LAST FEW HOURS PT HAS BEEN AGITATED/ANXIOUS - MAKING LOUD NOISES, GRUNTS, AND CURSE WORDS. PT HAS PERIODS OF APNEA WHEN ASLEEP, AND DESAT'S TO 80'S - NC HAS BEEN PLACED IN MOUTH AT 4-6L TITRATING TO KEEP SAT'S >94. PT'S PG WENT BAD (NOT PATENT, NOT DRAWING), AND TWO PERIPHERAL IV'S WERE PLACED. VITALS STABLE ASIDE A FEW HIGH BLOOD PRESSSURES. NO RUNS OF VT/SVT. POTASSIUM IMPROVING. DOBHOB INFUSING GLUCERAN 1.2 AT 25ML/HR, WITH 300ML Q4H FLUSHES. CACERES IS PATENT AND HANGING TO GRAVITY, CONTAINED 375ML OF ROCHELLE URINE WITH SEDIMENT. ONE BM OVERNIGHT. SEE NEURO ASSESSMENT FOR MENTATION. RESTRAINTS HAVE BEEN SECURED TO BILATERAL WRISTS AND BED. NO ATIVAN GIVEN OVER NIGHT, MULTIPLE DOSES OF FENTANYL GIVEN. BED IS LOW AND LOCKED. CALL LIGHT WITHIN REACH.
--- NOTE | 2019-02-04 09:27 | NUR ---
INITIAL ASSESSMENT: PT CALLING OUT. A&O TO SELF, TOWN, LOCATION. CAN FOLLOW SOME COMMANDS. INCREASING LOC. LUNGS ARE DIMINISHED WITH CRACKLES AND EXPIRATORY WHEEZES. PT HAS A WEAK COUGH THAT PRODUCES SOME THIN SECRETIONS. SAO2 >90% 4L NC. SR WITH HR IN 80'S, BP STABLE IN THE 130'S. DOBHOFF IN PLACE FOR CONTINUOUS TUBE FEEDINGS WITH GLUCERNA 1.2 AND MEDS. GLUCERNA IS AT RATE OF 45 MLS/HR. GOAL IS TO BE 60 RUNNING AT 60 MLS/HR ABD IS DISTENDED, SOFT, WITH NORMOACTIVE BOWEL TONES. CACERES IN PLACE, DRAINING/PATENT. BUE REMAIN EDEMATOUS WITH 2+ PITTING EDEMA HOWEVER NO LONGER WEEPING. BRUISING TO L LOWER ABD, ABRASIONS TO LOWER R ABD AND THIGH. ABD ULCER DRESSING CLEAN, DRY, INTACT. DRESSINGS TO UPPER R ARM CLEAN, DRY, INTACT. LEGS ARE DRY AND FLAKY. 20 G IV TO R AND L WRIST. BOTH PATENT AND SL.
--- NOTE | 2019-02-04 10:30 | NUR ---
DR. MONTERO IN ROOM TO SEE PT. INFORMED THAT PT'S WBC INCREASED TODAY FROM YESTERDAY. NO ORDERS OBTAINED
--- NOTE | 2019-02-04 12:00 | NUR ---
PT COMFORTABLY RESTING. CURRENT CIWA 3. VITALS STABLE SBP 150'S, HR IN 60S. NO CURRENT SIGNS OF PAIN OR DISCOMFORT. SATTING >90% ON 1L. NO OTHER ACUTE CHANGES AT THIS TIME. WILL CONTINUE TO MONITOR.
--- NOTE | 2019-02-04 16:00 | NUR ---
PT HAS BECOME LESS AGITATED THROUGHOUT SHIFT. FOLLOWS SIMPLE COMMANDS. SPEECH IS CLEARER ALTHOUGH HAS MOMENTS OF SLURRING. RECEIVED COMPLETE BED BATH AND LINEN CHANGE. NO ACUTE CHANGES. WILL CONTINUE TO MONITOR
--- NOTE | 2019-02-04 18:14 | NUR ---
SHIFT SUMMARY: AT BEGINNING OF SHIFT PT CALLING OUT FREQUENTLY. BECAME LESS FREQUENT SHIFT PROGRESSED. PT REMAINED FOLLOWING SIMPLE COMMANDS. PT REMAINS ALERT TO SELF, TOWN, HOSPITAL, NURSE SPEECH REMAINS GARBLED AT TIMES. CIWA SCORE 3 THROUGHOUT SHIFT. PT REMAINED AFEBRILE. PT WAS REPOSITIONED FREQUENTLY THROUGHOUT SHIFT AND GIVEN PRN PAIN MEDS FOR CHRONIC LOWER BACK PAIN. PT SATTING >90% ON 1-4 L, LUNG SOUNDS IMPROVED SHIFT PROGRESSED, LESS ADVENTITIOUS. PT MAINLY IN SR WITH RARE PAC AND OCCASIONAL PVC. BP REMAINS STABLE. TUBE FEED AT GOAL RATE OF 60ML/HR WITH 300ML FLUSHES Q4H. NO BM THIS SHIFT. CACERES DRAINING ADEQUATE AMT OF YELLOW URINE. NO CHANGE IN SKIN. PT REPOSITIONED SELF OCCASIONALLY. PT RECEIVED COMPLETE BED BATH, LINEN CHANGE, ATTENDS CHANGED. R AND L WRIST IVS SL. SPEECH THERAPY VISITED PT-PT FAILED. HEAD CT PERFORMED TODAY. NO COMPLAINTS AT THIS TIME AND NO ACUTE CHANGES. WILL GIVE REPORT TO NIGHTSHIFT RN SHORTLY.
--- NOTE | 2019-02-04 19:20 | NUR ---
I AGREE WITH ALL DOCUMENTATION PROVIDED BY JANNETH NEVAREZ.
--- NOTE | 2019-02-04 19:47 | NUR ---
[place] of Care: Care assumed at 1900hr. Patient drowsy but awake, responding to verbal stimuli. Oriented to self and place, confused to time/date, reason for admission. Follows simple commands, but requires frequent redirection. Bilateral soft wrist restraints in place. Restraints removed upon initial assessment, patient quickly begins pulling at lines, tubes, cords, and IV's despite frequent redirection by staff. Patient was also attempting ot get out of bed. Peripheral IV's x2 to bilateral wrist patent and intact, SL at this time. Patient c/o lower back pain. Repositioning and IV fentanyl 25mcg effective to manage pain. Hardy cath patent and intact, draining clear yellow urine. DobHoff NG tube in place. Continuous TF is Glucerna 1.2 at goal rate of 60ml/hr with 300ml H2O flush q4hr. No s/s of GI intolerance. Will continue to monitor for pain, comfort, safety.
[2019-02-05 03:14] LABS: BASOPHILS ABSOLUTE AUTO 0.03 K/mm3 (0.00-0.23); BASOPHILS PERCENT AUTO 0 % (0-2); EOSINOPHILS ABSOLUTE AUTO 0.01 K/mm3 (0.00-0.68); EOSINOPHILS PERCENT AUTO 0 % (0-6); Hematocrit 35.5 % (37.0-53.0); Hemoglobin 11.7 g/dL (13.5-17.5); IMMATURE GRAN PERCENT AUTO 2 % (0-1); LYMPHOCYTES ABSOLUTE AUTO 0.38 K/mm3 (0.84-5.20); LYMPHOCYTES PERCENT AUTO 2 % (21-46); MONOCYTES ABSOLUTE AUTO 0.47 K/mm3 (0.16-1.47); MONOCYTES PERCENT AUTO 2 % (4-13); Mean Corpuscular Volume 112 fL (80-100); Mean Platelet Volume 11.8 fL (9.1-12.4); NEUTROPHILS ABSOLUTE AUTO 18.91 K/mm3 (1.96-9.15); NEUTROPHILS PERCENT AUTO 94 % (41-73); Platelet Count 167 K/mm3 (150-400); RDW Coefficient Variation 14.1 % (11.7-14.2); RDW Standard Deviation 58.4 fL (35.1-46.3); Red Blood Cell Count 3.16 M/mm3 (4.30-5.90)
[2019-02-05 03:32] LABS: Anion Gap 4 mmol/L (6-16); Blood Urea Nitrogen 18 mg/dL (8-24); Bun/Creatinine Ratio 23.4 (12.0-20.0); CO2, Blood 34 mmol/L (21-32); Calcium, Blood 7.9 mg/dL (8.5-10.1); Chloride, Blood 104 mmol/L (98-108); Creatinine, Blood 0.77 mg/dL (0.60-1.20); Glomerular Filtration Rate >60 (60-); Glucose, Blood 149 mg/dL (70-99); Magnesium, Blood 1.6 mg/dL (1.6-2.4); Phosphorus, Blood 3.8 mg/dL (2.5-4.9); Potassium, Blood 3.8 mmol/L (3.5-5.5); Sodium, Blood 142 mmol/L (136-145)
--- NOTE | 2019-02-05 06:03 | NUR ---
Shift Summary: Patient slept on/off throughout shift. Remains oriented to self/place, confused to time/date, and reason for admission. Restless and agitated when awake, pulling on restraints and attempting to climb out of bed, yelling/calling out. Attempts to pull at lines, tubes, cords, and IV's when restraints removed. Unable to re-direct. Patient frequently ask for food or water, and continually educated on reasons whey he cannot have food/fluids by mouth (aspiration). Avoided use of Ativan to allow patient's neuro status to improve. X1mg Ativan given late this shift per increased agitation/restlessness with little to no effect noted. PRN fentanyl given throughout shift per c/o back pain, with good effect noted. DobHoff remains patent and intact. Hardy remains patent and intact, draining clear, dark yellow urine. Soft bilateral wrist restraints remain in place for safety. Will continue to monitor until report to day shift RN.
--- NOTE | 2019-02-05 08:00 | NUR ---
SHIFT ASSESSMENT PT AGITATED AND YELLING OUT. ALERT TO SELF AND PLACE, FOLLOWING SOME COMMANDS CIWA 6. LUNG SOUNDS ARE COURSE WITH WHEEZES. NT SUCTION PERFORMED. SR WITH OCCASIONAL PVCS. DOBHOFF IN PLACE WITH GLUCERNA RUNNING AT 60MLS/HR. ORAL CARE PROVIDED. ABD IS DISTENDED AND FIRM WITH NORMOACTIVE BOWEL TONES. CACERES IN PLACE DRAINING LARGE AMOUNTS OF YELLOW URINE. LARGE AMT OF BRIUSING TO L ABD, ABRASIONS TO R THIGH AND ABD. ABD ULCER BANDAGE CLEAN,DRY, INTACT. BUE EDEMA-NO WEEPING, BANDAGES ARE CLEAN, DRY, INTACT. BLE DRY AND SCALY. 20 G IV BILAT WRISTS PATENT.
--- NOTE | 2019-02-05 08:50 | NUR ---
PT PULLED DOBHOFF OUT ABOUT 20CM. TUBE FEED PAUSED. DOBHOFF ADVANCED BACK ORIGINAL PLACEMENT. INFORMED DR MONTERO AND ORDER FOR STAT XRAY OBTAINED. AWAITNG XRAY. AM PT MEDS HELD
--- NOTE | 2019-02-05 10:28 | NUR ---
DR. MONTERO HERE TO SEE PATIENT. INFORMED THAT PATIENT VERY AGITATED, CANTANKEROUS, CURSING AT STAFF THIS AM. INFORMED THAT PRN FENTANYL HAS BEEN HELPING WITH PAIN BUT THAT PRN ATIVAN GIVEN FOR THE INCREASED AGITATION. INFORMED THAT PATIENT HAD 5 BEAT RUN OF VTACH LAST NIGHT AND THAT PATIENT HAD 7 BEAT RUN OF VTACH- BOTH ASYMPTOMATIC. BNP OF 877 THIS AM. INFORMED THIS AM THAT DOBHOFF MIGRATED OUT 20 CC AND PUSHED BACK IN TO ORIGINAL PLACEMENT SITE. XRAY ORDERED AND DR. MONTERO VERIFIED POSITION AND STATED THAT TUBE FEEDS MAY BE RESTARTED. STATED SHE WOULD PUT ORDERS IN THE COMPUTER.
--- NOTE | 2019-02-05 11:51 | NUR ---
PHYSICAL THERAPY AND JANNETH NEVAREZ IN WORKING WITH PATIENT AT THIS TIME.
--- NOTE | 2019-02-05 12:30 | NUR ---
PT AGITATED AND COMPLAINING OF BACK PAIN. 50MCG FENTANYL GIVEN FOR COMPLAINTS OF BACKPAIN. PT REMAINS AGITATED WHEN NOT SLEEPING. BP ELEVATES WHEN AGITATED. O2 SAT DROPPED BELOW 90% SO O2 INCREASED TO 2 L. NO OTHER ACUTE CHANGES AT THIS TIME
--- NOTE | 2019-02-05 17:20 | NUR ---
DR. MONTERO INFORMED THAT PATIENT WAS ABLE TO GET AHOLD OF DOBHOFF AGAIN AND PULL IT OUT SOME. DOBHOFF PUSHED BACK IN. ORDERED FOR NEW XRAY.
--- NOTE | 2019-02-05 18:15 | NUR ---
XRAY TO ROOM TO CONFIRM DOBHOFF PLACEMENT
--- NOTE | 2019-02-05 18:16 | NUR ---
SHIFT SUMMARY: PT AGITATED AND YELLING OUT THROUGHOUT SHIFT WHILE AWAKE. IS A&O TO SELF AND HOSPITAL BUT REMAINS CONFUSED. CIWA ELEVATED THIS SHIFT. PAINFUL THROUGHOUT SHIFT. ATIVAN AND FENTANYL GIVEN. NOT ABLE TO FOLLOW COMMANDS TOWARDS END OF SHIFT. LUNG SOUNDS COARSE WITH A NONPRODUCTIVE COUGH. SR WITH A RUN OF VTACH TODAY AND OCCASIONAL PVCS. DOBHOFF WAS OUT ABOUT 20 CM THIS SHIFT. ADVANCED BACK IN AND PLACEMENT CONFIRMED BY XRAY. TUBE FEED RESUMED AT 60 MLS/HR. AT END OF SHIFT WHILE REPOSITIONING PT WAS ABLE TO REACH DOBHOFF AND ATTEMPTED TO PULL OUT. ADVANCED BACK IN. XRAY TO CONFIRM PLACEMENT. TUBE FEED AND LOPRESSOR CURRENTLY BEING HELD AWAITING CONFIRMATION OF PLACEMENT. INCONTINENT OF STOOL THIS EVENING. CACERES IN PLACE DRAINING YELLOW URINE. 20 G L WRIST AND 20G L UPPER ARM. WILL GIVE REPORT TO ONCOMING RN.
--- NOTE | 2019-02-05 19:00 | NUR ---
DR. MONTERO VERIFIED PLACEMENT OF DOBHOFF. OKAY TO CONTINUE TF AND GIVE MEDS.
--- NOTE | 2019-02-05 19:24 | NUR ---
AGREE WITH RNROQUE'S DOCUMENTATION. REPORT GIVEN TO ASSUMING BOTTOM TURNING LATHE TENDER NURSE.
--- NOTE | 2019-02-05 19:37 | NUR ---
[place] of Care: Care assumed at 1900hr. Patient continues to be confused, agitated, and restless. At shift change, patient continually thrashing bed, pulling at restraints, and calling out. Unable to re-direct patient, does not follow commands and rarely responds to questions. Mumbles incoherently, or says only short statements. Disoriented to time, place, event. Bilateral soft wrist restraints remain in place for safety, patient attempts to get out of bed, and pull all lines, tubes, cords, and dressings when not restrained. Dr. Hanson confirmed placement and gave permission to use Dobhoff tube shortly after shift change, following chest x-ray taken late on day shift. Dobhoff now infusing TF at goal rate without difficulty, no s/s of GI intolerance. Hardy cath patent and intact, draining clear yellow urine. Peripheral IV's x2 to lt arm patent and intact, SL at this time. Will continue to monitor for pain, comfort, safety.
[2019-02-06 03:24] LABS: BASOPHILS ABSOLUTE AUTO 0.03 K/mm3 (0.00-0.23); BASOPHILS PERCENT AUTO 0 % (0-2); EOSINOPHILS PERCENT AUTO 0 % (0-6); Hematocrit 35.8 % (37.0-53.0); Hemoglobin 11.8 g/dL (13.5-17.5); IMMATURE GRAN ABSOLUTE AUTO 0.45 K/mm3 (0.00-0.10); IMMATURE GRAN PERCENT AUTO 2 % (0-1); LYMPHOCYTES ABSOLUTE AUTO 0.35 K/mm3 (0.84-5.20); LYMPHOCYTES PERCENT AUTO 2 % (21-46); MONOCYTES ABSOLUTE AUTO 0.51 K/mm3 (0.16-1.47); MONOCYTES PERCENT AUTO 3 % (4-13); Mean Corpuscular HGB 37.5 pg (26.0-34.0); Mean Corpuscular Volume 114 fL (80-100); Mean Platelet Volume 12.1 fL (9.1-12.4); NEUTROPHILS ABSOLUTE AUTO 17.08 K/mm3 (1.96-9.15); NEUTROPHILS PERCENT AUTO 93 % (41-73); Platelet Count 155 K/mm3 (150-400); RDW Coefficient Variation 14.2 % (11.7-14.2); RDW Standard Deviation 59.5 fL (35.1-46.3); Red Blood Cell Count 3.15 M/mm3 (4.30-5.90); White Blood Cell Count 18.42 K/mm3 (4.00-11.30)
[2019-02-06 03:40] LABS: Anion Gap 5 mmol/L (6-16); Blood Urea Nitrogen 18 mg/dL (8-24); Bun/Creatinine Ratio 24.9 (12.0-20.0); CO2, Blood 34 mmol/L (21-32); Calcium, Blood 8.2 mg/dL (8.5-10.1); Chloride, Blood 103 mmol/L (98-108); Creatinine, Blood 0.72 mg/dL (0.60-1.20); Glomerular Filtration Rate >60 (60-); Glucose, Blood 146 mg/dL (70-99); Magnesium, Blood 1.8 mg/dL (1.6-2.4); Phosphorus, Blood 3.6 mg/dL (2.5-4.9); Potassium, Blood 4.1 mmol/L (3.5-5.5); Sodium, Blood 142 mmol/L (136-145)
--- NOTE | 2019-02-06 06:16 | NUR ---
Shift Summary: Patient slept more this shift compared to last NOC shift. Continues to be very restless and agitated when awake, continually pulling at restraints. Mostly mumbles incoherently, occasionally more clear. Remains unable to re-direct and not following any commands. HS Trazadone appeared to be helpful, but patient required increasing amounts of Ativan and Fentanyl later in shift. X1 NT suctioning this shift per increased congestion, lung sounds remain coarse but improved and relieved audible congestion. Dobhofff continues to infuse without difficulty, no s/s of GI intolerance. Hardy cath remains patent and intact, draining dark yellow urine. Will continue to monitor until report to day shift RN.
--- NOTE | 2019-02-06 10:20 | NUR ---
FOLLOWING REPORT PA WAS NOTE TO BE RESTING WITH MINIMAL RESTLESSNESS. THIS SLOWLY INCREASED TO NEARLY CONSTANT AGITATION FOLLOWED BY PERIODS OF SHORT 3-5 SEC. APNEA AND BACK TO AGITATION. PT DID NOT DESAT. AND IS ON 02 AT 2L. PT IS TOLERATING T.F AND ABD SOFT W/O CURRENT STOOLING. PT HAS BILAT WRIST RESTRAINTS DUE TO AGITATION. AFTER FNETANYL IV PT CALMED AND WILL FOLLOW.
--- NOTE | 2019-02-06 14:22 | NUR ---
1345 PT UP TO CHAIR PER LIFT. HOWEVER HE PULLS HIMSELF DOWN IN BED AND IS UNABLE TO MAINTAIN A GOOD POSITION. WILL ATTEMPT CHAIR POSTIONING AGAIN BEFORE RETURNING TO BED PT IS NOT ABLE TO COOPERATE WITH HIS CARE.
--- NOTE | 2019-02-06 20:55 | NUR ---
[place] of Care: Care assumed at 1900hr. Patient either sleeping or awake, restless, and agitated in bed. Pulling on restraints when awake, remains unable to re-direct. Only stating short sentences "let me up", does not respond to questions from staff or follow any commands. Bilateral soft wrist restraints remain in place for safety. Will avoid use of ativan this shift, prn trazodone given, along with routine HS medications. VSS, O2-95-98% on 3L/NC, short periods of apnea when sleeping, improved with repositioning/boosting up in bed, raising HOB. Hardy cath patent and intact, draining dark yellow urine. Peripheral IV to LFA patent and intact, new dressing placed by this RN per lifting. Power-glide placed on day shift, found to be completely dislodged and lying under patient. Power-glide dressing most likely lifted r/t weeping edema in upper extremities, and catheter pulled r/t restless/thrashing around in bed. No bleeding noted from power-glide site. Will continue to monitor for pain, comfort, safety.
[2019-02-07 04:09] LABS: BASOPHILS ABSOLUTE AUTO 0.02 K/mm3 (0.00-0.23); BASOPHILS PERCENT AUTO 0 % (0-2); EOSINOPHILS ABSOLUTE AUTO 0.01 K/mm3 (0.00-0.68); EOSINOPHILS PERCENT AUTO 0 % (0-6); Hematocrit 35.5 % (37.0-53.0); Hemoglobin 11.6 g/dL (13.5-17.5); IMMATURE GRAN ABSOLUTE AUTO 0.38 K/mm3 (0.00-0.10); IMMATURE GRAN PERCENT AUTO 2 % (0-1); LYMPHOCYTES ABSOLUTE AUTO 0.46 K/mm3 (0.84-5.20); LYMPHOCYTES PERCENT AUTO 3 % (21-46); MONOCYTES ABSOLUTE AUTO 0.57 K/mm3 (0.16-1.47); MONOCYTES PERCENT AUTO 4 % (4-13); Mean Corpuscular HGB 36.8 pg (26.0-34.0); Mean Corpuscular HGB Conc 32.7 g/dL (31.5-36.5); Mean Corpuscular Volume 113 fL (80-100); Mean Platelet Volume 11.3 fL (9.1-12.4); NEUTROPHILS ABSOLUTE AUTO 14.16 K/mm3 (1.96-9.15); NEUTROPHILS PERCENT AUTO 91 % (41-73); Platelet Count 142 K/mm3 (150-400); RDW Coefficient Variation 14.1 % (11.7-14.2); RDW Standard Deviation 59.1 fL (35.1-46.3); Red Blood Cell Count 3.15 M/mm3 (4.30-5.90)
[2019-02-07 04:26] LABS: Anion Gap 5 mmol/L (6-16); Blood Urea Nitrogen 19 mg/dL (8-24); Bun/Creatinine Ratio 24.9 (12.0-20.0); CO2, Blood 34 mmol/L (21-32); Calcium, Blood 8.3 mg/dL (8.5-10.1); Chloride, Blood 101 mmol/L (98-108); Creatinine, Blood 0.76 mg/dL (0.60-1.20); Glomerular Filtration Rate >60 (60-); Glucose, Blood 156 mg/dL (70-99); Magnesium, Blood 1.9 mg/dL (1.6-2.4); Sodium, Blood 140 mmol/L (136-145)
--- NOTE | 2019-02-07 06:29 | NUR ---
Shift Summary: Patient slept for majority of shift following Trazodone and routine scheduled medications given at approx 2100hr. Woke restless and agitated approx 0300hr. Remains confused and unable to follow commands when awake. Was able to speak more clearly when awake, yelling "help" or "get me out of here". Approx 0500hr, patient noted to have very coarse respirations, and frequent periods of apnea. Contacted Franklin STARKS, who performed NT suctioning, effective for moderate amount of thick brown secretions. Suctioning relieved coarse respirations and nebulizer updraft then given for wheezing lung sounds with good effect. RT Franklin then identified patient's frequent apnea as Jorge Pichardo respirations. Patient then went back to sleep and resumed a normal breathing pattern. Appears to only have Jorge Pichardo respirations when awake/agitated. Patient remains asleep, in normal breathing pattern at this time. Plan to inform day shift RN, who can consult with occupational ther this morning. VS remain stable. Hardy cath remains patent and intact. Will continue to monitor until report to day shift RN.
--- NOTE | 2019-02-07 11:33 | NUR ---
PT WAS RESTING AND NOT YELLING OUT TILL ABOUT 1045 WHEN HE AWAKENED AND WAS YELLING, FOLLOWING FEW VERY SIMPLE COMMAND RANDOMLY, AND BEGAN PULLING AT RESTRAINTS. IV MED WERE GIVEN WITH VERY LITTLE ASSISTANCE AT THIS TIME. WILL FOLLOW.
[2019-02-07 13:12] LABS: Base Excess Venous 14.3 mmol/L; Bicarbonate Venous 35.8 mmol/L (24.0-30.0); PCO2 Venous 52.8 mmHg (38-42); PO2 Venous 43.9 mmHg (38-42); pH Blood Venous 7.47 (7.34-7.37)
--- NOTE | 2019-02-07 15:54 | NUR ---
PT HAS BEEN VERY RESTLESS AND AGITATED EVEN WITH FENT. AND ATIVAN DOSES NOTED. THIS LAST FENT DOSE HAS ASSISTED IN CALMING PT AND WILL FOLLOW. HR HAS SL DEC EXPECTED AND WILL FOLLOW BP.
--- NOTE | 2019-02-07 18:22 | NUR ---
PT HAS BEEN RESTING SENCE LAST MEDS BUT IS BEGINING TO BECOME AGITATED AND RESTLESS. I/O NOTED. PT CONT TO TOLERATE TF WELL. PT CONT TO REQUIRE SOFT WRIST RESTRAINTS.
--- NOTE | 2019-02-07 19:32 | NUR ---
ASSUMED CARE RECEIVED REPORT FROM JANNETH ALFARO. PT IS AWAKE AND AGITATED IN BED, MOANING AND WORKING REALLY HARD TO GET OUT OF RESTRAINTS. PT IS HYPERTENSIVE, RELATED TO HIS AGITATION. HE IS IN SWB RESTRAINTS IN BILATERAL WRISTS - SECURED TO BED. PT HAS TUBE FEEDING, GLUCERNA 1.2 INFUSING THROUGH DOBHOF AT 60ML/HR. CACERES IS PATENT HANGING TO GRAVITY, AND POWERGLIDE FLUSHES IN RIGHT UPPER ARM. BED IS LOW AND LOCKED.
[2019-02-08 04:45] LABS: Base Excess Venous 16.4 mmol/L; Bicarbonate Venous 37.4 mmol/L (24.0-30.0); PCO2 Venous 59.4 mmHg (38-42); PO2 Venous 38.6 mmHg (38-42); pH Blood Venous 7.44 (7.34-7.37)
[2019-02-08 04:51] LABS: BASOPHILS ABSOLUTE AUTO 0.01 K/mm3 (0.00-0.23); BASOPHILS PERCENT AUTO 0 % (0-2); EOSINOPHILS ABSOLUTE AUTO 0.01 K/mm3 (0.00-0.68); EOSINOPHILS PERCENT AUTO 0 % (0-6); Hematocrit 31.8 % (37.0-53.0); Hemoglobin 10.4 g/dL (13.5-17.5); IMMATURE GRAN ABSOLUTE AUTO 0.32 K/mm3 (0.00-0.10); IMMATURE GRAN PERCENT AUTO 3 % (0-1); LYMPHOCYTES ABSOLUTE AUTO 0.34 K/mm3 (0.84-5.20); LYMPHOCYTES PERCENT AUTO 3 % (21-46); MONOCYTES ABSOLUTE AUTO 0.53 K/mm3 (0.16-1.47); MONOCYTES PERCENT AUTO 5 % (4-13); Mean Corpuscular HGB 36.9 pg (26.0-34.0); Mean Corpuscular HGB Conc 32.7 g/dL (31.5-36.5); Mean Corpuscular Volume 113 fL (80-100); Mean Platelet Volume 11.4 fL (9.1-12.4); NEUTROPHILS ABSOLUTE AUTO 10.24 K/mm3 (1.96-9.15); NEUTROPHILS PERCENT AUTO 89 % (41-73); Platelet Count 151 K/mm3 (150-400); RDW Coefficient Variation 13.8 % (11.7-14.2); RDW Standard Deviation 57.2 fL (35.1-46.3); Red Blood Cell Count 2.82 M/mm3 (4.30-5.90); White Blood Cell Count 11.45 K/mm3 (4.00-11.30)
[2019-02-08 05:08] LABS: Alanine Aminotransfer (ALT/SGP 51 U/L (12-78); Albumin, Blood 2.1 g/dL (3.4-5.0); Albumin/Globulin Ratio 0.7 (0.8-1.8); Alk Phos 227 U/L (50-136); Anion Gap 4 mmol/L (6-16); Aspartate Aminotrans (AST/SGOT 27 U/L (12-37); Bilirubin, Total 0.4 mg/dL (0.1-1.0); Blood Urea Nitrogen 18 mg/dL (8-24); Bun/Creatinine Ratio 22.7 (12.0-20.0); CO2, Blood 37 mmol/L (21-32); Calcium, Blood 8.2 mg/dL (8.5-10.1); Chloride, Blood 101 mmol/L (98-108); Creatinine, Blood 0.79 mg/dL (0.60-1.20); Globulin, Blood 2.9 g/dL (2.2-4.0); Glomerular Filtration Rate >60 (60-); Glucose, Blood 157 mg/dL (70-99); Phosphorus, Blood 3.7 mg/dL (2.5-4.9); Potassium, Blood 3.6 mmol/L (3.5-5.5); Sodium, Blood 142 mmol/L (136-145)
--- NOTE | 2019-02-08 06:39 | NUR ---
SHIFT SUMMARY PT HAS MOMENTS OF ORIENTATION TO SELF, PLACE, AND FAMILY/FRIENDS. WHEN HE'S NOT SEDATED FROM THE FENTANYL, ZYPREXA, AND TRAZADONE, HE WILL BE AGITATED, THRASHING AROUND WITH ALL EXTREMETIES, AND YELLING OUT "HELP!". DURING THESE MOMENTS OF AGITATION PT DOES NOT RESPOND OFTEN TO WHAT YOU ARE SAYING. PT HAS BEEN IN SINUS RHYTHM, BUT HAS DIPPED INTO BRADYCARDIA FOR A PERIOD OF TIME. PT BP IS GREAT WHEN HES NOT AGITATED AND THRASHING AROUND, THEN IT IS HYPERTENSIVE. RESPIRATORY ASHLEY HIS LUNGS SOUND FAIRLY CLEAR, WITH COARSENESS ON EXPIRATION, BUT HAS MANY PERIODS OF APNEA WHERE HE DE-SAT'S INTO LOW 80'S. NO BM OVER NIGHT, DISTENDED ABDOMEN, AND ADEQUATE URINE OUTPUT THAT IS TEA COLORED. THERE ARE MANY SKIN TEARS AROUND HIS WRIST HE CONSTANTLY IS FIGHTING THE RESTRAINTS. PT HAS LESS EDEMA THEN PREVIOUS SHIFTS. LABS SHOW IMPROVING WBC COUNT. BED IS LOW AND LOCKED. RESTRAINTS SECURED TO BILATERAL WRISTS AND BED.
--- NOTE | 2019-02-08 08:00 | NUR ---
ASSUMED CARE: REPORT RECEIVED FROM JACK Galeana RN. ASSUMED CARE OF THIS PT AT APPROX 0700. ON ASSESSMENT, THE PT IS ANXIOUS & YELLING OUT. WHEN ASKED QUESTIONS, HE WILL OCCASIONALLY RESPOND APPROPRIATELY BUT IS NOT CONSISTENT. LS ARE COARSE T/O, PT ON 3L NC PLACED INTO MOUTH. O2 SATS > 90% ON AVG, DESATS NOTED AT TIMES DURING APNEIC PERIODS TO APPROX 85%. MONITOR SHOWS SR W/ HR 70s. BP STABLE AT REST, HTN W/ AGITATION. TF INFUSING AT GOAL RATE. CACERES PATENT/ DRAINING. WILL CONTINUE TO MONITOR & UPDATE NEEDED.
--- NOTE | 2019-02-08 08:30 | NUR ---
DOBHOFF: PT HAS MANAGED TO PULL DOBHOFF FEEDING TUBE APPROX 4 CM OUT FROM VERIFIED PLACEMENT. TF HAS BEEN STOPPED & DR REMY HAS BEEN NOTIFIED. ORDERS PLACED FOR CXR NOW TO VERIFY PLACEMENT REMAINS OKAY FOR USE. WILL CONTINUE TO MONITOR & UPDATE NEEDED.
--- NOTE | 2019-02-08 08:55 | NUR ---
DOBHOFF PLACEMENT UPDATE: CALL FROM SCOTTIE Abdi TUBING DRIER. PER RADIOLOGIST, DOBHOFF IS POSITIONED CORRECTLY & MAY CONTINUE TO BE USED.
--- NOTE | 2019-02-08 15:09 | NUR ---
PHYSICAL THERAPY: PER DR REMY REQUEST, PT UP TO CHAIR USING OVERHEAD LIFT. THIS RN & PHYSICAL THERAPIST ASSISTED, PT IS VERY WEAK & CANNOT SIT UP STRAIGHT W/O HELP FROM STAFF. HE IS CONSTANTLY LEANING FORWARD AND/OR SCOOTING SELF OUT TO EDGE OF CHAIR. PT ABLE TO BRIEFLY PARTICIPATE W/ THERAPY SESSION & THEN BACK TO BED FOR SAFETY. BILAT WRIST RESTRAINTS REMAIN IN PLACE.
--- NOTE | 2019-02-08 17:48 | NUR ---
SHIFT SUMMARY: PT MORE ALERT THIS AFTERNOON AFTER HOLDING ANY FURTHER SEDATING MEDICATION ADMIN. HE IS MORE VOCAL BUT REMAINS UNABLE TO EXPRESS HIS NEEDS IN AN UNDERSTANDABLE WAY, MOSTLY YELLING PROFANITIES & BECOMING FRUSTRATED WHEN NEEDS ARE NOT MET. HE IS OCCASIONALLY ABLE TO EXPRESS HIMSELF W/ SIMPLE SENTENCES BUT MOSTLY JUST YELLS OUT. LS ARE COARSE T/O, PT ON 3L NC PLACED INTO MOUTH. HE CONTINUES HAVING APNEIC PERIODS W/ DESATS TO MID 80s NOTED. MONITOR SHOWS SR, BP HYPERTENSIVE, HYDRALAZINE x1. BT x4, TF INFUSING AT GOAL RATE OF 60 ML/HR W/ 300 ML H2O FLUSH Q4H. CACERES PATENT/ DRAINING DARK YELLOW URINE. SKIN OVERALL FRAGILE. POWERGLIDE TO DEN WORKING WELL. WILL CONTINUE TO MONITOR & REPORT OFF TO ONCOMING RN.
--- NOTE | 2019-02-08 21:21 | NUR ---
START OF SHIFT: REPORT FROM EMEKA LAGUNAS. PT AGITATED, YELLING OUT, AND PULLING AT RESTRAINTS. PT PT CALMS A BIT WHEN TALKED AND ACTUALLY FOLLOWED SIMPLE COMMANDS. PT EASILY REDIRECTED BUT THEN QUICKLY RETURNS TO YELLING OUT AND PULLING AT RESTRAINTS. VSS. O2 3L VIA N/C IN THE MOUTH. LS GUCCI ON RIGHT T/O, EXP WHEEZE KATIE. DOBHOFF IN PLACE AND PATENT. PWRGLIDE TO RUE PATENT AND FLUSHED. PT STATED TO RN UPON ENTERING ROOM THAT HE HAD, "TO SH-T". PT TOLERATED BEING MOVED UP IN BED AND LINENES SITUAED WITH BEDPAN PLACE THEN TAKEN OFF AFTER APPRX 8 MIN WITH NO PRODUCTION OF BM. WILL CONTINUE TO PROVIDE PRN. PT CONTINUED YELLING AND SCREAMING OUT BUT AT TIMES CALMED WHEN ORIENTED AND PROVIDED INFOMATION. PT AT ONE POINT ASKED TO HAVE HIS TV TURNED ON BUT WOULD NOT FOCUS ON WATCHING IT. PT PROVIDED ORAL CARE SEVERAL TIMES WHILE RN IN ROOM PROVIDING MOISTURE AND REMOVING A SMALL AMOUNT OF CASTS. PT ALSO WOULD SPIT OUT PIECES OF CASTS. PT REPOSITIONED. PT FELL ASLEEP SHORTLY AFTER 2100 OIL FIELD EQUIPMENT MECHANIC (XYPREXA, TRAZADONE, AND LISINOPRIL). PT CURRENLTY CALM AND SLEEPING. VSS. WILL CONTINUE TO MONITOR.
--- NOTE | 2019-02-09 01:22 | NUR ---
UPDATE: PT SLEEPING WELL AFTER XYPREXA AND TRAZADONE ADMIN. PT VSS. AWAKENS DURING REPOSITIONING AND STATES, "WHY DON'T YOU JUST LET ME SLEEP". PT FALLS BACK TO SLEEP QUICKLY ONCE Q2' TURN AND ADL'S COMPLETE. WRIST RESTRAINTS CONTINUE ON FOR IMPULSIVE BEHAVIOR WHEN AWAKE. PT IN FULL VIEW OF NURSE'S STATION WILL CONTINUE TO MONITOR.
[2019-02-09 04:18] LABS: Base Excess Venous 13.5 mmol/L; PCO2 Venous 48.3 mmHg (38-42); PO2 Venous 31.4 mmHg (38-42); pH Blood Venous 7.49 (7.34-7.37)
[2019-02-09 04:20] LABS: BASOPHILS ABSOLUTE AUTO 0.02 K/mm3 (0.00-0.23); BASOPHILS PERCENT AUTO 0 % (0-2); EOSINOPHILS ABSOLUTE AUTO 0.02 K/mm3 (0.00-0.68); EOSINOPHILS PERCENT AUTO 0 % (0-6); Hematocrit 32.7 % (37.0-53.0); Hemoglobin 10.8 g/dL (13.5-17.5); IMMATURE GRAN ABSOLUTE AUTO 0.25 K/mm3 (0.00-0.10); IMMATURE GRAN PERCENT AUTO 2 % (0-1); LYMPHOCYTES ABSOLUTE AUTO 0.34 K/mm3 (0.84-5.20); LYMPHOCYTES PERCENT AUTO 3 % (21-46); MONOCYTES PERCENT AUTO 5 % (4-13); Mean Corpuscular HGB 37.2 pg (26.0-34.0); Mean Corpuscular Volume 113 fL (80-100); Mean Platelet Volume 10.9 fL (9.1-12.4); NEUTROPHILS PERCENT AUTO 89 % (41-73); NRBC ABSOLUTE 0.04 K/mm3 (0.00-0.02); NRBC Auto 0.4 /100 WBC (0.0-0.2); Platelet Count 170 K/mm3 (150-400); RDW Coefficient Variation 13.7 % (11.7-14.2); RDW Standard Deviation 57.1 fL (35.1-46.3); White Blood Cell Count 11.13 K/mm3 (4.00-11.30)
[2019-02-09 04:38] LABS: Alanine Aminotransfer (ALT/SGP 45 U/L (12-78); Albumin, Blood 2.1 g/dL (3.4-5.0); Albumin/Globulin Ratio 0.8 (0.8-1.8); Alk Phos 222 U/L (50-136); Anion Gap 5 mmol/L (6-16); Aspartate Aminotrans (AST/SGOT 30 U/L (12-37); Bilirubin, Total 0.5 mg/dL (0.1-1.0); Blood Urea Nitrogen 19 mg/dL (8-24); Bun/Creatinine Ratio 22.6 (12.0-20.0); CO2, Blood 36 mmol/L (21-32); Chloride, Blood 103 mmol/L (98-108); Creatinine, Blood 0.84 mg/dL (0.60-1.20); Globulin, Blood 2.7 g/dL (2.2-4.0); Glomerular Filtration Rate >60 (60-); Glucose, Blood 163 mg/dL (70-99); Potassium, Blood 3.2 mmol/L (3.5-5.5); Sodium, Blood 144 mmol/L (136-145); Total Protein, Blood 4.8 g/dL (6.4-8.2)
--- NOTE | 2019-02-09 05:49 | NUR ---
UPADATE: PT AWAKENS AFTER XRAY. BM'S X3. PT BACK TO YELLING, SCREAMING, AND CURSING. HOSPITALIST NOTIFIED OF POTASSIUM 3.2. NEW ORDER FOR KcL 40 mEq IV GIVEN. PT HYPERTENSIVE WITH AGITATION. 0600 METOPROLOL GIVEN. PT PROVIDED LINEN CHANGE, HENNY CARE, CATHETER CARE, AND REPOSITIONING.
--- NOTE | 2019-02-09 08:40 | NUR ---
CARE ASSUMED CARE AND REPORT ASSUMED FROM KATHY ZAMORA RN. PT YELLING OUT AND PULLING AGAINST RESTRAINTS IN BED. UPON ENTERING ROOM, PT HAD LARGE SMEARY BM AND HAD SPREAD IT ALL THROUGHOUT THE BEDDING AND IT WAS ALSO ON HIS EXTREMITIES. LINENS CHANGED AND PT CLEANED UP. REMAINS IN BUE RESTRAINTS. WHEN OUT OF RESTRAINTS, PT REACHES UP TO NC AND ATTEMPTS TO PULL OUT DOPHOFF AND IVS. COUNSELED PT ON WHY HE REMAINS IN BED AND IN RESTRAINTS. HE IS ORIENTED TO PERSON AND PLACE AT THIS TIME. VSS. NSR, HR 80S. CACERES CATH REMAINS SECURED AT THIS TIME. TOLERATING TF AT GOAL RATE 60 ML/HR. WILL CONTINUE TO MONITOR.
--- NOTE | 2019-02-09 10:36 | NUR ---
SLEEPING PHYSICAL THERAPY ATTEMPTED TO WORK WITH PT. PT WAS TACHYPNIC DURING PHYSICAL ACTIVITY, PT HAD A FEW EPISODES WHERE HE FELT DIZZY AND STATED HE WAS GOING TO PASS OUT. HE WAS PLACED BACK IN BED AND OXYGEN WAS INCREASED. NC CHANGED TO 5-6L OXYMIZER. TALKED WITH PT ABOUT HIS NEEDS AT CURRENT TIME AND ATTEMPTED TO CALM PT. HE RESPONDED WELL AND IS NOW SLEEPING WITH RR 16, BP STABLE. WILL CONTINUE TO MONITOR.
--- NOTE | 2019-02-09 12:07 | NUR ---
REASSESSMENT PT SLEEPING COMFORTABLY. ATTEMPTED TO AWAKEN, BUT PT REMAINS DROWSY AND WANTING TO SLEEP. VSS. NSR, HR 60S. BP WBL. AFEBRILE. TOLERATING TF AT GOAL RATE. OUT OF RESTRAINTS AT 1200 HE IS CALM, COOPERATIVE, ABLE TO FOLLOW COMMANDS APPROPRIATELY. WILL CONTINUE TO MONITOR.
--- NOTE | 2019-02-09 15:53 | NUR ---
REASSESSMENT PT SLEPT OFF/ON DURING AFTERNOON. THROUGHOUT SHIFT, PT HAS BEEN ABLE TO FOLLOW COMMANDS AND HAS BEEN ORIENTED. AWOKE SUDDENLY THIS AFTERNOON, AND UPON ENTERING ROOM, FOUND PT WITH DOPHOFF PULLED OUT OF NOSE. HE STATED HE DID NOT WANT THAT TUBE ANYMORE. REFUSING TO LET RN RE-INSERT DOPHOFF. PT WAS THEN GIVEN BEDSIDE SWALLOW EVAL AND PASSED SUCCESSFULLY; DOES NEED SOME FEED ASSIST HIS UPPER EXTREMITIES ARE A BIT WEAK. NO S/S PAIN. VSS ENTIRE SHIFT. STILL REQUIRES 2-3L OF O2. PT NOW STATING HE IS WANTING TO LEAVE AND HAS BEEN PULLING GOWN AND MONITOR LINES OFF. PT RESTRAINED AT 1555. WILL MONITOR.
--- NOTE | 2019-02-09 17:08 | NUR ---
GATITO MEDEROS INSERTED BY WALE MORALES RN AND CONFIRMED BY XRAY WITH MD REMY. PT NOW IN RESTRAINTS AND IS YELLING CONTINUALLY SAYING, "HELP ME" "TAKE THESE OFF" "TAKE THIS OUT". SEEN BY MD BUCK THIS PM. WILL START TF. WILL CONTINUE MONIITORING AND WILL GIVE BEDSIDE, HANDOFF REPORT TO JULIETTE LAGUNAS.
--- NOTE | 2019-02-09 21:17 | NUR ---
ASSUMED CARE NOTE: ASSMUNED CARE OF PT AT 1900, RECEVIED REPORT FROM KRISTY LAGUNAS. UPON ENTERING ROOM PT LYING ON RIGHT SIDE AND SUPPORTED WITH PILLOWS. PT IS IN BILAT SOFT WRIST RESTRAINTS, WHICH ARE SECURED AND ON PLACE. PT IS CURRENTLY SLEEPING, HOWEVER IS AROUSABLE. PT ON 2L OF 02 VIA OXYMIZER, WITH SPO2 @ 98%. PT IN NSR WITH HR IN THE 60'S. DOBHOFF IN PLACE AND SECURED, TF IS CURRENTLY AT 30MLS/HR. CACERES PATENT/DRAINING YELLOW URINE. PT REPOSITIONED TO LEFT SIDE WITH PILLOWS TO ALLEVIATE PRESSURE FROM BACK/COCCXY. WILL CONTINUE TO MONITOR FOR CHANGES T/O SHIFT. BED AT LOWEST LEVEL, BED ALARM ON.
--- NOTE | 2019-02-10 02:04 | NUR ---
UPDATE NOTE: AT 0145, PT WAS SEEN PULLING AT LINES/TUBES. PT GRABBED THE FEEDING TUBE LINE AND PULLED IT TOWARDS HIMSELF. PT'S FEEDING TUBE WAS DISLODGED FROM CARTRIDGE. FEEDING TUBE LINE WAS STILL INTACT AND DOBHOFF WAS IN CORRECT PLACEMENT. WHILE REPOSITIONING PT, THE TKO IV LINE CONNECTED TO THE PICC WAS BACKED UP WITH BLOOD. WHILE EXAMINING THE TUBE LINE, IT WAS EVIDENT THAT IT WAS TORN. PICC DRESSING C/D/I AND WAS FLUSHING WELL AND IN CORRECT PLACEMENT. IV LINE WAS REPLACED AND NS WAS RESTARTED AT 10MLS/HR. LINES WERE PLACED AWAY FROM PT REACH, AND SWR WERE RESECURED. BED AT LOWEST LEVEL, CALL LIGHT WITHIN REACH.
--- NOTE | 2019-02-10 05:53 | NUR ---
SHIFT SUMMARY: PT SLEPT FOR THE MAJORITY OF THE SHIFT. HOWEVER, DID HAVE ONE EPISODE OF AGITATION. PT WAS ABLE TO FOLLOW SIMPLE COMMANDS AND ANSWER QUESTIONS. WHEN ASKED WHERE HE WAS HE WAS ABLE TO STATE "[place]" WHEN PT WAS ASKED WHY HE WAS PULLING AT HIS LINES AND SCREAMING OUT HE STATED " I HAVE BAD BACK PAIN" PT THEN STATED HE WANTED TO STAY ON HIS LEFT SIDE WHICH HELPED WITH HIS BACK PAIN. PT WAS BEEN C/O BEING HUNGRY. PT REMAINS ON 2L OF 02 VIA OXYMIZER, WITH SPO2 ABOVE 90%. PT CURRENTLY IN SR WITH OCCASIONAL PACS, HR BETWEEN 50-70 BMP. TF RUNNING AT GOAL OF 60ML/HR, NO S/S OF GI INTOLERANCE. CACERES PATENT AND DRAINING DARK YELLOW URINE. BED AT LOWEST LEVEL, CALL LIGHT WITHIN REACH. WILL CONTINUE TO MONITOR UNITL REPORT IS GIVEN TO ONCOMING SHIFT.
--- NOTE | 2019-02-10 08:58 | NUR ---
INITIAL ASSESMENT Pt a& times 3, cooperative confused of location and easily reorient. Pt following simple commands, follows light from side to side with eyes. Pt yells and screams out profanities on occasion but listens when talked to and re directed about offensive language and reponds at times appropriately. C/o lower back pain, advised, pt repositioned, distraction and breathing mech taught. Afebrile, palp pulses t/o VSS, Right UE midline in place intact, infusing with pos blood return.2L Oximizer in place and tolerating with sats WNL and will wean as tolerated. Clear and dim. Tolerating TF no c/o n/v. UO adequate via morales. Will get OOB today, advance diet as tolerated and cont to monitor.
--- NOTE | 2019-02-10 19:18 | NUR ---
PT UPDATE Pt neuro intact, less abravise and verbally abusive, follows commands and IBARRA and denies pain at this time. VSS, bradycardic, SB P stable. Oximizer at 3L and resp status stable. Tolerating puree and thin liquids with standby assist. No n/v or BM. UO adequate but minimal, clear and yellow. Report given to PM RN.
--- NOTE | 2019-02-10 20:00 | NUR ---
ASSUMED CARE NOTE: ASSUMED CARE OF PT AT 1900, RECEIVED REPORT FROM JANNETH NEWSOME. UPON ENTERING PT WAS IN THE LEFT SIDE LYING POSITION. PT WAS ON 3L OF O2 VIA OXYMIZER, SPO2 AT 100%, THEREFORE HE WAS DECREASED TO 2L OF O2 AND STATS MAINTAINED AT 98%. CRACKLES HEARED BILAT IN THE UPPER LOBES. PT DENIES ANY SOB. PT IS ALERT AND ORIENTED TO SELF AND IS ABLE TO FOLLOW DIRECTIONS. PT IS CURRENTLY IN SINUS RYTHYM WITH HR RANGING FROM 50-70 BMP. DOBHOFF RUNNING AT 60MLS/HR, NO S/S OF GI INTOLERANCE NOTED. CACERES PATENT AND DRAINING. BILAT SWR IN PLACE. BED AT LOWEST LEVEL, CALL LIGHT WITHIN REACH. WILL CONTINUE TO MONITOR PT T/O SHIFT.
--- NOTE | 2019-02-11 00:40 | NUR ---
UPDATE/ DOBHOFF UPON ENTERING ROOM, PT WAS MOVING IN BED PULLING AT LINES/LUBES. PT BROKE FREE FROM WRIST RESTRAINT AND PULLED OUT DOBHOFF. NEW DOBHOFF WAS PLACED , WAITING ON XRAY FOR PLACEMENT CONFERMATION.
[2019-02-11 03:31] LABS: BASOPHILS ABSOLUTE AUTO 0.01 K/mm3 (0.00-0.23); BASOPHILS PERCENT AUTO 0 % (0-2); EOSINOPHILS PERCENT AUTO 0 % (0-6); Hematocrit 32.7 % (37.0-53.0); Hemoglobin 11.1 g/dL (13.5-17.5); IMMATURE GRAN ABSOLUTE AUTO 0.29 K/mm3 (0.00-0.10); IMMATURE GRAN PERCENT AUTO 3 % (0-1); LYMPHOCYTES ABSOLUTE AUTO 0.32 K/mm3 (0.84-5.20); LYMPHOCYTES PERCENT AUTO 3 % (21-46); MONOCYTES ABSOLUTE AUTO 0.54 K/mm3 (0.16-1.47); MONOCYTES PERCENT AUTO 5 % (4-13); Mean Corpuscular HGB 37.2 pg (26.0-34.0); Mean Corpuscular HGB Conc 33.9 g/dL (31.5-36.5); Mean Platelet Volume 10.8 fL (9.1-12.4); NEUTROPHILS ABSOLUTE AUTO 9.47 K/mm3 (1.96-9.15); NEUTROPHILS PERCENT AUTO 89 % (41-73); NRBC ABSOLUTE 0.03 K/mm3 (0.00-0.02); NRBC Auto 0.3 /100 WBC (0.0-0.2); Platelet Count 201 K/mm3 (150-400); RDW Coefficient Variation 13.8 % (11.7-14.2); RDW Standard Deviation 56.1 fL (35.1-46.3); Red Blood Cell Count 2.98 M/mm3 (4.30-5.90); White Blood Cell Count 10.63 K/mm3 (4.00-11.30)
[2019-02-11 03:32] LABS: Mean Corpuscular Volume 110 fL (80-100)
[2019-02-11 03:49] LABS: Anion Gap 5 mmol/L (6-16); Blood Urea Nitrogen 18 mg/dL (8-24); Bun/Creatinine Ratio 21.7 (12.0-20.0); CO2, Blood 36 mmol/L (21-32); Calcium, Blood 7.7 mg/dL (8.5-10.1); Chloride, Blood 100 mmol/L (98-108); Creatinine, Blood 0.83 mg/dL (0.60-1.20); Glomerular Filtration Rate >60 (60-); Glucose, Blood 177 mg/dL (70-99); Magnesium, Blood 1.9 mg/dL (1.6-2.4); Phosphorus, Blood 2.7 mg/dL (2.5-4.9); Potassium, Blood 2.7 mmol/L (3.5-5.5); Sodium, Blood 141 mmol/L (136-145)
--- NOTE | 2019-02-11 05:17 | NUR ---
SHIFT SUMMARY: PT WAS CALM/COOPRATIVE AND SLEPT DURING THE START OF THE SHIFT, UNTIL HE RIPPED THE DOBHOFF OUT AROUND 0000. A NEW DOBHOFF WAS THEN INSERTED AND PLACEMENT WAS VERIFIED BEFORE USE BY . FEEDING TUBE CURRENTLY RUNNING AT 45MLS/HR, NO S/S OF GI DISTRESS NOTED. PT BECAME ANXIOUS/AGITATED DURING STARTED TO YELL, MAKING STATMENTS SUCH " LET ME OUT", " UNTIE ME", " I WANT TO GO HOME". PT WAS C/O BEING HUNGRY AND NOT GETTING ENOUGH FOOD. PT WAS ATTEMPTING TO SIT UP IN BED AND AND WAS KICKING AND CURSING LOUDLY. PT WAS THEN PLACED IN HIGH FOWLERS POSITION AND WAS GIVEN PUDDING AND APPLESAUCE. NO SIGNS OF ASPIRATION NOTED. PT WAS ABLE TO CALM DOWN, AND STATED " I JUST WANT YOU TO GIVE ME SOMETHING FOR THE STRESS AND AGITATION SO I CAN SLEEP, I CAN TELL I AM BEING AN ASSHOLE". PT WAS TOLD THAT WE COULD NOT GIVE HIM ANY MORE MEDS THEN THOSE ORDERED. PT IS MORE ALERT AND ORIENTED. PT REMAINED IN SINUS RYTHYM WITH PVC'S. HR RANGED FROM MID 40'S -70 BPM. CACERES PATENT AND DRAINING ROCHELLE URINE. BED AT LOWEST LEVEL, BILAT SWR IN PLACE, CALL LIGHT WITHIN REACH. WILL CONTINUE TO MONITOR PT UNTIL REPORT IS GIVEN TO ONCOMING SHIFT.
--- NOTE | 2019-02-11 07:30 | NUR ---
BEGINNING OF SHIFT Assumed care at 0700. Bedside report received from Yasemin LAGUNAS. Pt on 2 LPM oxymizer. SpO2 90% or greater. HR 45-60, sinus with PACs. SBP 160s. Pt alert. Able to state correct name, date of , location, and current month. Year incorrectly stated as "1919". Dohboff in place with tube feeds and flush per orders. Bed in "chair position". Pt extending legs, states "I'm stretching". Bed in lowest position. Call light in reach. Pt denies need at this time.
--- NOTE | 2019-02-11 09:38 | NUR ---
BREAKFAST Pt ate 30% of breakfast before becoming fatigued. Pt stated he was "dizzy". BP and HR stable. Will continue to reassess.
--- NOTE | 2019-02-11 12:00 | NUR ---
UPDATE Pt able to finish eating breakfast when allowed 1-2 minute breaks between every 1-2 bites. Pt eager and ambitious to eat, however he fatigues when he takes 3-[address] Kevan Walker in to see pt. Charline to remove carmen. Charline for PCU status. Discussed bradycardia and pt's dizziness. Plan to take pt into shower.
--- NOTE | 2019-02-11 13:56 | NUR ---
Spiritual care visit conducted. Patient requested a academic tutor so I visited patient. Patient is sounding a bit agree towrds his RN and is a little frustrated at me mostly because patient says,"I want to leave and I want these restraints off." I kneel next to patient and tell him that I am leaving a Bible here for him for when he is able to have the restraints off. Patient thanks me. I then read him some inspirational Bible verses to which the patient would add, "Oh, that's good" every once in a while. I talk to patient about sources of value and meaning because patient replies, "What's the use?" or "Why bother?" when I talk about getting well and being more at peace. I provide prayer and remind him of what his mike says about his value and the reasons to keep moving forward. The MALE INFERTILITY SPECIALIST comes in a pulls patient up off the conversation and he dips back down into his negativity. I will continue to remaina valiable to patient and family.
--- NOTE | 2019-02-11 14:18 | NUR ---
UPDATE AND DOBHOFF REMOVED Pt placed in shower chair using ceiling lift. Showered with assist from this RN and WADE Urban. Pt able to minimally assist, cleaning upper body. Pt placed in recliner after shower. Pt ate lunch with nurse assist. Pt stated interest in reading bible. Software Quality Specialist notified. ST in to see pt. Stated that pt is okay to take meds crushed in applesauce. Dr Kevan Walker updated. Also discussed pt's strong appetite and PO intake. Okay to remove dobhoff tube. Tube removed without incident. Pt also taken out of restraints.
--- NOTE | 2019-02-11 15:34 | NUR ---
PT IN ROOM Working with PT at this time. Pt placed on 2 LPM, as he states he is feeling short of breath. SpO2 89-91%
--- NOTE | 2019-02-11 18:16 | NUR ---
SUMMARY Pt remains A&O x 2. Pt repeatedly answers "January" and "1919" when asked current month and year. Pt OOB to chair with lift today. Worked with PT. Unable to stand up from chair. Pt eating 75% of meals. Dobhoff discontinued. Pt tolerating meds with applesauce well. Pt incontinent of stool. Unable to tell staff when he has bowel movements. Also incontinent of urine and unable to tell staff when his attends need changed. Pt on 2 LPM NC at this time. Pt on room air for a few hours during shift, but then requires placed back on supplemental O2 to maintain SpO2 90% or greater. Pt currently in bed. Bed in lowest position. Call light in reach. Will continue to closely monitor until care handoff and bedside report with oncoming RN.
--- NOTE | 2019-02-11 23:06 | NUR ---
START OF SHIFT: REPORT FROM LINDA LAGUNAS. PT LYING IN BED WATCHING TV AND WAS AWAKE. PT ANSWERED QUESTIONS APPROPRIATELY EXCEPT STATING IT WAS FEBRUARY INSTEAD OF JANUARY. PT O2 2L VIA N/C SATS 97%. LS C/ EXP WHEEZE CONTINUING ON LEFT SIDE-SLIGHTLY COARSE ON RIGHT. BP SLIGHTLY HYPERTENSIVE, HR 50'S-60'S. NOON DOSE METOPROLOL NOT GIVEN-NOTED. QT INTERVAL 0.48 NOTED. IOANA LAGUNAS STATED PT C/O NAUSEA AND CONTINUED TO STATE THAT HE FELT A LITTLE NAUSEATED, HOWEVER, NO ANTI-EMETIC ORDERED AND WITH CAUTION TO LENTHENING OF QT INTERVAL, WILL CONTINUE TO MONITOR FOR NOW. NOC LISINOPRIL GIVEN. SEE FLOW SHEET FOR UPDATED VITALS. PT ABLE TO SIP DIET SPRITE SLIGHTLY THICKENED AND STATED HE LIKED IT. PT TOOK MEDS IN APPLESAUCE S/ DIFFICULTY. PT WITH TWO LARGE BM'S AT START OF SHIFT AND WAS ABLE TO (BUT VERY WEAK) HELP TURN SELF. PT CONINTUES WITH MODERATE TO MAX ASSIST WITH ADL'S. PT AT 2250 WAS ABLE TO THIS RN THAT HE FELT LIKE HE, "HAD TO PEE". PT VOIDED INTO BEDPAN/PAD. PT C/O OF NAUSEA BUT AFTER 2250 ASSIST TO BEDPAN AND REPOSITIONED STATED HE FELT FINE AND THAT HE WAS COMFORTABLE. WILL CONTINUE TO MONITOR.
[2019-02-12 04:06] LABS: BASOPHILS ABSOLUTE AUTO 0.02 K/mm3 (0.00-0.23); BASOPHILS PERCENT AUTO 0 % (0-2); EOSINOPHILS ABSOLUTE AUTO 0.01 K/mm3 (0.00-0.68); EOSINOPHILS PERCENT AUTO 0 % (0-6); Hematocrit 35.1 % (37.0-53.0); Hemoglobin 11.9 g/dL (13.5-17.5); IMMATURE GRAN ABSOLUTE AUTO 0.52 K/mm3 (0.00-0.10); IMMATURE GRAN PERCENT AUTO 4 % (0-1); LYMPHOCYTES ABSOLUTE AUTO 0.42 K/mm3 (0.84-5.20); LYMPHOCYTES PERCENT AUTO 4 % (21-46); MONOCYTES ABSOLUTE AUTO 0.52 K/mm3 (0.16-1.47); MONOCYTES PERCENT AUTO 4 % (4-13); Mean Corpuscular HGB 37.8 pg (26.0-34.0); Mean Corpuscular HGB Conc 33.9 g/dL (31.5-36.5); Mean Corpuscular Volume 111 fL (80-100); Mean Platelet Volume 10.5 fL (9.1-12.4); NEUTROPHILS ABSOLUTE AUTO 10.24 K/mm3 (1.96-9.15); NEUTROPHILS PERCENT AUTO 87 % (41-73); NRBC ABSOLUTE 0.03 K/mm3 (0.00-0.02); NRBC Auto 0.3 /100 WBC (0.0-0.2); Platelet Count 200 K/mm3 (150-400); RDW Coefficient Variation 14.1 % (11.7-14.2); RDW Standard Deviation 57.6 fL (35.1-46.3); Red Blood Cell Count 3.15 M/mm3 (4.30-5.90); White Blood Cell Count 11.73 K/mm3 (4.00-11.30)
--- NOTE | 2019-02-12 04:09 | NUR ---
UPDATE: PT QUIETLY YELLED OUT LAST TWO TIMES AND STATED HE, "HAD TO PEE". PT ABLE TO VOID IN URINAL WHEN PLACED ALTHOUGH INCONTINENT AT FIRST. PT ABLE TO VOICE NEEDS AND IS REPOSITIONED PER PT REQUEST. PT PREFERS HIGH MCGRATH'S POSITION. PT REQUESTED SNACK ("HOT INTSTANT OATMEAL") AND ATE TWO CUPS OF SUGAR-FREE TAPIOCA PUDDING AND ON HIS OWN OPENED AND DRANK PART OF A CONTAINTER GLUCERNA SUPPLEMENT DRINK. PT CONTINUES TO DRINK LIGHTLY THICKENED DIET SPRITE FROM CUP WITHOUT DIFFICULTY. CURRENTLY PT SITTING IN HIGH FOWLERS TO RIGHT SIDE-SLEEPING. CALL LIGHT WITHIN REACH.
[2019-02-12 04:23] LABS: Anion Gap 5 mmol/L (6-16); Blood Urea Nitrogen 20 mg/dL (8-24); Bun/Creatinine Ratio 24.3 (12.0-20.0); CO2, Blood 32 mmol/L (21-32); Calcium, Blood 7.9 mg/dL (8.5-10.1); Chloride, Blood 105 mmol/L (98-108); Creatinine, Blood 0.82 mg/dL (0.60-1.20); Glomerular Filtration Rate >60 (60-); Glucose, Blood 183 mg/dL (70-99); Potassium, Blood 3.6 mmol/L (3.5-5.5); Sodium, Blood 142 mmol/L (136-145)
[2019-02-12 04:25] LABS: BAND PERCENT MAN 4 % (0-8); BASOPHILS PERCENT MAN 0 % (0-2); EOSINOPHILS PERCENT MAN 0 % (0-6); LYMPHOCYTES ABSOLUTE MAN 0.35 K/mm3 (0.84-5.20); LYMPHOCYTES PERCENT MAN 3 % (21-46); MONOCYTES ABSOLUTE MAN 0.46 K/mm3 (0.16-1.47); MONOCYTES PERCENT MAN 4 % (4-13); MYELOCYTE ABSOLUTE MAN 0.23 K/mm3 (0.00-0.00); MYELOCYTE PERCENT MAN 2 % (0-0); NEUTROPHILS ABSOLUTE MAN 10.67 K/mm3 (1.96-9.15); SEG NEUTROPHILS PERCENT MAN 87 % (41-73); TOTAL CELLS COUNTED 100
--- NOTE | 2019-02-12 07:29 | NUR ---
ABD DISTENTION: PT WITH INCREASED ABD DISTENTION AND DIFFICULTY BREATHING IN SUPINE POSITION. PT DOES NOT RECALL IF EVER HAVING A PARECENTESIS. PASSED THIS INFORMATION ON TO DAY RN.
--- NOTE | 2019-02-12 09:07 | NUR ---
ASSUMED CARE / SPEECH THERAPY: REPORT RECEIVED FROM KATHY Goyal RN. ASSUMED CARE OF THIS PT AT APPROX 0700. ON ASSESSMENT, THE PT IS A&O, PLEASANT & COOPERATIVE. HE ANSWERS ALL QUESTIONS APPROPRIATELY & FOLLOWS DIRECTION W/O DIFFICULTY. HE DENIES PAIN THIS AM. STS OCCASIONAL SOB W/ EXERTION. PT CURRENTLY ON RA W/ O2 SATS > 90% ON AVG, DESATS TO 86% NOTED AT TIMES W/ ACTIVITY. MONITOR SHOWS SR W/ HR 60-70s. HTN, MEDS PER EMAR. PT HAS NO GI/ COMPLAINTS, ATTENDS IN PLACE FOR INTERMITTENT URINARY INCONTINENCE. CALL TO MORIAH Mir SPEECH THERAPIST. NOTIFIED HER THAT PT HAS ONE MED THIS AM THAT CANNOT BE CRUSHED & GIVEN IN APPLESAUCE. SHE STS SHE WILL NOT BE ABLE TO ROUND THIS AM BUT WILL ATTEMPT TO SEE THE PT THIS AFTERNOON & REEVAULATE NEED FOR CRUSHED VS WHOLE MEDS. SHE STS IF THE PT IS OTHERWISE TOLERATING PO INTAKE WELL, A SMALL PILL MAY BE TRIALED WHOLE IN APPLESAUCE BY THIS RN. PT TOLERATED THIS WELL & HAD NO DIFFICULTY SWALLOWING THE PILL WHOLE W/ APPLESAUCE. WILL CONTINUE TO MONITOR & UPDATE NEEDED.
--- NOTE | 2019-02-12 10:30 | NUR ---
DR TAVERAS: PROVIDER AT BEDSIDE TO SEE PT. HE HAS REQUESTED A NICOTINE PATCH & ORDERS PLACED. PT ALSO NEEDS INCENTIVE SPIROMETRY AT BEDSIDE, PER DR TAVERAS. NO OTHER CHANGES AT THIS TIME. WILL CONTINUE TO MONITOR & UPDATE NEEDED.
--- NOTE | 2019-02-12 17:51 | NUR ---
SHIFT SUMMARY / TRANSFER TO PCU: NO ACUTE CHANGES THIS SHIFT, PT REMAINS A&O, PLEASANT & COOPERATIVE. HE HAS BEEN TEARFUL THIS AFTERNOON, EXPRESSING FEAR THAT HE MAY "NEVER WALK AGAIN." HE HAS BEEN REMINDED BY THIS RN THAT IT TOOK MULTIPLE WEEKS FOR THIS LEVEL OF DECONDITIONING TO OCCUR & THAT IT WILL TAKE MULTIPLE WEEKS FOR HIM TO RECOVER ALSO. PT REMAINS ON RA W/ O2 SATS > 92%, OCCASIONAL DESATS TO MID 80s NOTED W/ EXERTION. MONITOR SHOWS SR W/ HR 60s, HTN PERSISTS W/ SCHEDULED MEDS PER EMAR. PT HAS NO GI COMPLAINTS, TOLERATING PO INTAKE WELL. VOIDS W/O DIFFICULTY, ATTENDS IN PLACE FOR INCONTINENCE. REPORT HAS BEEN GIVEN TO LINDA Richard RN TO ASSUME CARE. PT TX TO PCU-10 AT APPROX 1730. ALL BELONGINGS, CHART & MEDS HAVE BEEN TAKEN OVER W/ PT.
--- NOTE | 2019-02-12 18:23 | NUR ---
TRANSFER Pt transferred to PCU 10. Pt awake and eating dinner. Recognizes this RN from previous encounters. States he is feeling well. Smiling and talking to staff. Pt on room air. SR per monitor, rate 65. Will continue to closely monitor until care handoff and bedside report with oncoming RN.
[2019-02-13 04:40] LABS: Hematocrit 36.1 % (37.0-53.0); Hemoglobin 12.1 g/dL (13.5-17.5); Mean Corpuscular HGB 36.4 pg (26.0-34.0); Mean Corpuscular HGB Conc 33.5 g/dL (31.5-36.5); Mean Corpuscular Volume 109 fL (80-100); Mean Platelet Volume 10.1 fL (9.1-12.4); NRBC ABSOLUTE 0.03 K/mm3 (0.00-0.02); NRBC Auto 0.2 /100 WBC (0.0-0.2); Platelet Count 221 K/mm3 (150-400); RDW Standard Deviation 56.3 fL (35.1-46.3); Red Blood Cell Count 3.32 M/mm3 (4.30-5.90); White Blood Cell Count 13.02 K/mm3 (4.00-11.30)
[2019-02-13 05:06] LABS: Anion Gap 6 mmol/L (6-16); BAND PERCENT MAN 5 % (0-8); BASOPHILS PERCENT MAN 0 % (0-2); Blood Urea Nitrogen 20 mg/dL (8-24); Bun/Creatinine Ratio 27.8 (12.0-20.0); CO2, Blood 31 mmol/L (21-32); Chloride, Blood 104 mmol/L (98-108); Creatinine, Blood 0.72 mg/dL (0.60-1.20); EOSINOPHILS PERCENT MAN 0 % (0-6); Glomerular Filtration Rate >60 (60-); Glucose, Blood 181 mg/dL (70-99); LYMPHOCYTES % ATYPICAL MANUAL 1 % (0-0); LYMPHOCYTES ABSOLUTE MAN 0.52 K/mm3 (0.84-5.20); LYMPHOCYTES PERCENT MAN 3 % (21-46); METAMYELOCYTE ABSOLUTE MAN 0.13 K/mm3 (0.00-0.00); METAMYELOCYTE PERCENT MAN 1 % (0-0); MONOCYTES ABSOLUTE MAN 0.26 K/mm3 (0.16-1.47); MONOCYTES PERCENT MAN 2 % (4-13); MYELOCYTE ABSOLUTE MAN 0.13 K/mm3 (0.00-0.00); MYELOCYTE PERCENT MAN 1 % (0-0); NEUTROPHILS ABSOLUTE MAN 11.97 K/mm3 (1.96-9.15); Potassium, Blood 3.6 mmol/L (3.5-5.5); SEG NEUTROPHILS PERCENT MAN 87 % (41-73); Sodium, Blood 141 mmol/L (136-145); TOTAL CELLS COUNTED 100
--- NOTE | 2019-02-13 06:45 | NUR ---
PT BECOMING INCREASINGLY AGGRESSIVE. SECURITY CALLED TO ROOM. PT TRYING TO STAND UP, IS UNSAFE DUE TO PT BEING EXTREMELY WEAK. PT ASKED TO SIT DOWN BY STAFF, STAFF ATTEMPT TO ASSIST PT TO BED. BECOMES VIOLENT AND HITS STAFF MEMBER. PT PLACED IN RESTRAINTS. CHARGE NURSE JAYE CALLED FOR ORDER.
--- NOTE | 2019-02-13 07:50 | NUR ---
END OF SHIFT SUMMARY AT BEGINNING OF SHIFT, PT COOPERATIVE WITH STAFF AND PLEASANT. VSS EXCEPT HTN, MEDICASTED PER EMAR MULTIPLE TIMES THIS SHIFT. PT HAVING CONTINUOUS CONTINENCE CHECKS. PT HAD CONCRETE CONVERSATIONS WITH STAFF AND DISPLAYED AWARENESS OF SURROUNDINGS AND APPROPRIATE CONVERSATIONS. NIGHT PROGRESSED, PT FIXATED ON LEAVING DESPITE NOT BEING SAFE TO LEAVE. PT BEGINNING TO MAKE NONSENSICAL STATEMENTS. PT BEGINS TO REFUSE CONTINECE CHECKS/CLEANING DESPITE BEING THOROUGHLY SOILED WITH URINE. WITH SITTING IN ROOM AND TALKING WITH PT, PT ALLOWS THIS RN TO CLEAN PT, CHANGE CLOTHES AND, REPOSITION. PT BECOMES AGITATED AROUND 0500. PLACES SOILED PANTS BACK ON. THREATENING STAFF. REFUSING MEDICATION. PT WAS ON BSC AT THIS POINT. PT REFUSING TO BE LIFTEN FROM BSC TO BED VIA LIFT. SECURITY TO ROOM TO ASSIST WITH TRANSFERRING TO BED. SUCCESFUL. SECURITY LEAVE. PT SOMEWHAT CALM. THIS RN LEAVES. PT THEN FOUND TRYING TO BOARD OF EDUCATION SECRETARY ROOM. SEE NOTE PLACED BY THIS RN AND JAYE WELLS. ULTIMATELY, PT HITS OTHER RN AND ATTEMPTS TO HIT OTHER STAFF. SECURITY TO ROOM. JAYE WELLS CALLED DR FOR RESTRAINTS ORDER, PT PLACED IN 2PT RESTRAINTS. AT THIS TIME, SHIFT CHANGE COMMENCED. REPORT GIVEN TO ONCOMING RN. COMMISSIONER OF OFFICIALS FILLING OUT RESTRAINT PAPERWORK AND REVIEWING WITH NURSING TECHNICAL IMPLEMENTATION LEAD. PT HAS CURRENTY CALMED DOWN AND HAS STOPPED SCREAMING.
--- NOTE | 2019-02-13 08:06 | NUR ---
0630 WHILE PT AGITATED, CALLED 911. THIS RN SPOKE WITH GALLERY OR MUSEUM TECHNICIAN. GALLERY OR MUSEUM TECHNICIAN AWARE THAT THIS RN IS CARING FORN PT AND PT IS CONFUSED. GALLERY OR MUSEUM TECHNICIAN ENDS CALL.
--- NOTE | 2019-02-13 10:25 | NUR ---
0745... PT WAS YELLING OUT AND WAS RESTRAINED IN BILAT SOFT WRIST AND ROSELYN AT THIS TIME. PT WAS CALMING AND ACCEPTED REDIRECTION AT THIS TIME. AGREED UPON BEHAVIOR WAS DISCUSSED AND PT WAS DEFINITLY IMPROVING W/O MEDS. PT DID APPLOGIZE TO STAFF AND WAS USING CALL LIGHT APPROPRIATELY. PT IS SL FORGETFUL HOWEVER AND WILL LEAVE ROSELYN ON AT THIS TIME FOR PT SAFETY AND ASSESSMENT.
--- NOTE | 2019-02-13 18:06 | NUR ---
173 PT WAS OBSERVER WHILE SETTING UP IN CHAIR THAT HE WAS FINISHED EATING AND HAD BROKEN HIS PLASTIC SPOON AND WAS SCRATCHING/CUTTING HIS L WRIST. WHILE ATTEMTPING TO CONTROL THE SITUATION THERE WAS A SKIN TARE NOTED ON THE R WISTS WELL. A CODE JOE WAS CALLED AND WHILE WAITING TO TRANSFER PT TO BED HE ATTEMPTED TO HEAD BUTT ONE OF THE NURSES OTHERWISE HE WAS SL RESISTING VERBALLY BUT NOT STRONG PHYSICAL RESISTANCE. WHEN ASKED WHAT HE WAS DOING HIS REPLY WAS "WHY NOT...YOU ARE GOING TO KILL ME ANYWAY". THE PT WAS LIFTED INTO BED AND SOFT WRIST AND ROSELYN IN PLACE. THE SIDE RAILS WERE THEN PADDED. PT WAS NOT PYSICALLY RESISTING AT THIS POINT AND WAS TAKING BUT NOT IN COMPLETE THOUGHTS THAT WERE CONNNECTED. IV AND PO MEDS WERE GIVEN AND PT AT 1819 WAS NOTED TO BE DOSING TO SLEEP AT TIMES AND CALM W/O PULLING AT RESTRAINTS OR HITTTING AT RAILS. WARM BLANKETS WERE EARLIER APPLIED FOR PT COMFORT. THE SCRATCHES/CUT SITES ON L WRIST WERE NOTED TO BE SUPERFICIAL BUT BLEEING. BILATERAL WRIST AND RON AND COBAN APPLIED.
[2019-02-14 04:59] LABS: BASOPHILS ABSOLUTE AUTO 0.03 K/mm3 (0.00-0.23); BASOPHILS PERCENT AUTO 0 % (0-2); EOSINOPHILS PERCENT AUTO 0 % (0-6); Hematocrit 36.3 % (37.0-53.0); Hemoglobin 11.9 g/dL (13.5-17.5); IMMATURE GRAN ABSOLUTE AUTO 0.68 K/mm3 (0.00-0.10); IMMATURE GRAN PERCENT AUTO 5 % (0-1); LYMPHOCYTES ABSOLUTE AUTO 0.52 K/mm3 (0.84-5.20); LYMPHOCYTES PERCENT AUTO 4 % (21-46); MONOCYTES ABSOLUTE AUTO 0.51 K/mm3 (0.16-1.47); MONOCYTES PERCENT AUTO 4 % (4-13); Mean Corpuscular HGB 36.4 pg (26.0-34.0); Mean Corpuscular HGB Conc 32.8 g/dL (31.5-36.5); Mean Corpuscular Volume 111 fL (80-100); Mean Platelet Volume 10.4 fL (9.1-12.4); NEUTROPHILS ABSOLUTE AUTO 11.73 K/mm3 (1.96-9.15); NEUTROPHILS PERCENT AUTO 87 % (41-73); NRBC ABSOLUTE 0.04 K/mm3 (0.00-0.02); NRBC Auto 0.3 /100 WBC (0.0-0.2); Platelet Count 237 K/mm3 (150-400); RDW Coefficient Variation 14.5 % (11.7-14.2); RDW Standard Deviation 58.8 fL (35.1-46.3); Red Blood Cell Count 3.27 M/mm3 (4.30-5.90); White Blood Cell Count 13.47 K/mm3 (4.00-11.30)
[2019-02-14 05:16] LABS: BAND PERCENT MAN 2 % (0-8); BASOPHILS PERCENT MAN 0 % (0-2); EOSINOPHILS PERCENT MAN 0 % (0-6); LYMPHOCYTES ABSOLUTE MAN 0.26 K/mm3 (0.84-5.20); LYMPHOCYTES PERCENT MAN 2 % (21-46); MONOCYTES PERCENT MAN 3 % (4-13); MYELOCYTE ABSOLUTE MAN 0.13 K/mm3 (0.00-0.00); MYELOCYTE PERCENT MAN 1 % (0-0); NEUTROPHILS ABSOLUTE MAN 12.52 K/mm3 (1.96-9.15); PROMYELOCYTE ABSOLUTE MAN 0.13 K/mm3 (0.00-0.00); PROMYELOCYTE PERCENT MAN 1 % (0-0); SEG NEUTROPHILS PERCENT MAN 91 % (41-73); TOTAL CELLS COUNTED 100
--- NOTE | 2019-02-14 05:48 | NUR ---
END OF SHIFT SUMMARY NO ACUTE CHANGES OVERNIGHT. VSS EXCEPT HTN, TREATED PER EMAR. PT REMAINS IN ROSELYN VEST AND SOFT WRIST RESTRAINTS BILATERALLY. T/O NIGHT PT HAS BECOME APOLOGETIC FOR HIS ACTIONS TOWARDS STAFF, EVEN TO THE POINT OF TEARS ASKING HOW HE CAN CHANGE. MUCH DISCUSSIIN HAS BEEN MADE WITH FOREST SUPERVISOR REGARDING REMOVING WRIST RESTRAINTS BUT EVERY ATTEMPT TO REMOVE HAS RESULTED IN PT PULLING TELE OFF AND PULLING AT LINES, PT HAS HAD SOME INSTANCES OF BRADYCARDIA THAT WE ARE WATCHING FOR CLOSELY AND THUS NEED TELE. AT THIS TIME, RESTRAINTS/VEST REMAIN. ALL APPROPRIATE MONITORING COMPLETED FOR RESTRAINTS. CONTINENCE CHECKS IN PLACE PT STILL CONTINUES TO VOID LARGE AMOUNTS INTO BRIEFS. ONE SMALL SMEAR BM AGAIN THIS SHIFT. DRESSINGS ON LACERATIONS FROM DAY SHIFT SELF HARM INCIDENT REDRESSED. IV FENTANYL FOR PAIN. PT HAS NOT REQUIREED PRN SEROQUEL. PT IS EASIL VIEWABLE FROM NURSING STATION AND HAS BEEN WATCHED CLOSELY THIS SHIFT. WILL CONTINUE TO MONITOR UNTIL SHIFT CHANGE.
--- NOTE | 2019-02-14 06:52 | NUR ---
PT HAS BECOME INCREASINGLY APOLOGETIC TO THE POINT OF CRYING REGARDING HIS ACTIONS. MULTIPLE DISCUSSIONS HAVE TAKEN PLACE WITH PT ABOUT WHAT HE CAN DO TO CHANGE AND HOW TO BE COMPLIANT WITH STAFF WEL LIFE CHANGES. PT RECEPTIVE AND ASKING QUESTIONS. DISCUSSION HAD REGARDING RESTRAINTS. PT PROMISED TO LEAVE TELE/LIBNES ALONE IF WRIST RESTRAINTS REMOVED. ORDERS OBTAINED FOR JUST VEST. PT HAS BEEN COMPLIANT WITH CARE SINCE 0600 WITHOUT WRIST RESRAINTS.
--- NOTE | 2019-02-14 07:45 | NUR ---
ASSUMED CARE: REPORT RECEIVED FROM JEROD Alonso RN. ASSUMED CARE OF THIS PT AT APPROX 0700. ON ASSESSMENT, THE PT IS RESTING QUIETLY. HE STS A SMALL AMNT OF PAIN TO HIS LOW BACK WHICH IS CHRONIC, STS IMPROVED SINCE YESTERDAY. PT ON RA W/ O2 SATS > 92%. MONITOR SHOWS SR W/ HR 80s. HTN, SCHEDULED MEDS PER EMAR. NO GI/ COMPLAINTS. ATTENDS IN PLACE FOR INTERMITTENT INCONTINENCE. WILL CONTINUE TO MONITOR & UPDATE NEEDED.
--- NOTE | 2019-02-14 09:52 | NUR ---
DR TAVERAS / DR HEBERT: PROVIDER AT BEDSIDE TO SEE PT. NOTIFIED HER OF INCREASED SWELLING TO RUE, ORDERS TO BE PLACED FOR RUE ULTRASOUND TO R/O DVT. ALSO NOTIFIED HER OF PT's GENERALIZED EDEMA INCREASING, ORDERS TO BE PLACED FOR PO LASIX. NO OTHER CHANGES AT THIS TIME. CALL FROM DR HEBERT, NOTIFIED THIS RN THAT DOSE OF HS SEROQUEL HAS BEEN INCREASED. WILL CONTINUE TO MONITOR & UPDATE NEEDED.
--- NOTE | 2019-02-14 11:40 | NUR ---
UPDATE: PT HAS BEEN OOB TO CHAIR THIS MORNING, TOLERATED WELL W/ MOD 2 PERSON ASSIST, GAIT BELT & FWW. HE IS NOW BACK TO BED & ULTRASOUND OF RUE HAS BEEN COMPLETED. PT DENIES PAIN OR NEEDS. CALL LIGHT IN REACH.
--- NOTE | 2019-02-14 13:42 | NUR ---
DR TAVERAS: CALL TO PROVIDER REGARDING PT's US OF RUE. IMAGING IS POSITIVE FOR SUPERFICIAL THROMBUS. PROVIDER IS AWARE, WOULD LIKE POWERGLIDE TO AFFECTED ARM REMOVED. SHE WILL CALL BACK W/ FURTHER ORDERS. WILL CONTINUE TO MONITOR & UPDATE NEEDED.
--- NOTE | 2019-02-14 13:47 | NUR ---
DR NITIN ALATORRE: PROVIDER IS PLACING ORDERS FOR SCHEDULED TYLENOL, SHE WOULD LIKE THE AFFECTED ARM TO BE ELEVATED & FOR ICE TO BE APPLIED. WILL NOTIFY IF SWELLING WORSENS.
--- NOTE | 2019-02-14 18:13 | NUR ---
SHIFT SUMMARY: NO ACUTE CHANGES SINCE PRIOR UPDATES. PT OCCASIONALLY BECOMES FRUSTRATED EXPRESSES THIS VERBALLY, CURSING & STATING HE "NEEDS TO LEAVE." PT REMAINS ON RA W/ O2 SATS > 92%. MONITOR SHOWS SR, HR 60-70s ON AVG. PT TOLERATING DIET UPGRADE FROM SPEECH THERAPY WELL W/ NO COUGHING OR OTHER ISSUES. INTERMITTENT INCONTINENCE W/ ATTENDS IN PLACE. POWERGLIDE TO DEN HAS BEEN REMOVED R/T PRIOR NOTE. PT CURRENTLY HAS NO IV ACCESS & TOOL MARKER, EUNICE, IS AWARE OF NEED FOR PERIPHERAL ACCESS. UNABLE TO PLACE PIV R/T EDEMATOUS EXTREMITIES. WILL CONTINUE TO MONITOR & REPORT OFF TO ONCOMING RN.
--- NOTE | 2019-02-14 19:57 | NUR ---
Patient gave permission at start of shift to care and access to chart.
[2019-02-15 05:15] LABS: BASOPHILS ABSOLUTE AUTO 0.03 K/mm3 (0.00-0.23); BASOPHILS PERCENT AUTO 0 % (0-2); EOSINOPHILS PERCENT AUTO 0 % (0-6); Hematocrit 33.3 % (37.0-53.0); Hemoglobin 11.2 g/dL (13.5-17.5); IMMATURE GRAN ABSOLUTE AUTO 0.64 K/mm3 (0.00-0.10); IMMATURE GRAN PERCENT AUTO 5 % (0-1); LYMPHOCYTES ABSOLUTE AUTO 0.46 K/mm3 (0.84-5.20); LYMPHOCYTES PERCENT AUTO 4 % (21-46); MONOCYTES ABSOLUTE AUTO 0.55 K/mm3 (0.16-1.47); MONOCYTES PERCENT AUTO 4 % (4-13); Mean Corpuscular HGB 37.8 pg (26.0-34.0); Mean Corpuscular HGB Conc 33.6 g/dL (31.5-36.5); Mean Corpuscular Volume 113 fL (80-100); NEUTROPHILS ABSOLUTE AUTO 11.26 K/mm3 (1.96-9.15); NEUTROPHILS PERCENT AUTO 87 % (41-73); NRBC ABSOLUTE 0.05 K/mm3 (0.00-0.02); NRBC Auto 0.4 /100 WBC (0.0-0.2); Platelet Count 226 K/mm3 (150-400); RDW Coefficient Variation 14.5 % (11.7-14.2); RDW Standard Deviation 60.3 fL (35.1-46.3); Red Blood Cell Count 2.96 M/mm3 (4.30-5.90); White Blood Cell Count 12.94 K/mm3 (4.00-11.30)
[2019-02-15 05:33] LABS: Anion Gap 7 mmol/L (6-16); Blood Urea Nitrogen 23 mg/dL (8-24); Bun/Creatinine Ratio 31.4 (12.0-20.0); CO2, Blood 31 mmol/L (21-32); Calcium, Blood 7.7 mg/dL (8.5-10.1); Chloride, Blood 105 mmol/L (98-108); Creatinine, Blood 0.73 mg/dL (0.60-1.20); Glomerular Filtration Rate >60 (60-); Glucose, Blood 204 mg/dL (70-99); Magnesium, Blood 1.9 mg/dL (1.6-2.4); Phosphorus, Blood 1.8 mg/dL (2.5-4.9); Potassium, Blood 3.1 mmol/L (3.5-5.5); Sodium, Blood 143 mmol/L (136-145)
--- NOTE | 2019-02-15 05:53 | NUR ---
END OF SHIFT SUMMARY PT STARTED OF SHIFT CALM AND COOPERATIVE. AROUND 0300, PT BECOMES AGITATED AND SLIGHTLY DELIRIOUS. SEE NOTES DESCRIBING INCREASED RESTRAINTS. PT NOTED TO HAVE LARGE AMOUNTS OF EDEMA, EVEN REACHING TO ABDOMEN. PT HAS TOLERATED RESTRAITNS WELL SINCE BEIMNG PLACED BACK IN THEM. STILL SOMEWHAT DISORIENTED. REMAINS WITH INSTANCES OF HTN, MEDS PER EMAR. SWELLING STILL NOTICEABLE MKORE IN R ARM DUE TO THROMBUS IDENTIFIED WITH IMAGING. NEW POWERGLIDE PLACED FREDDIE BY DOMINIC BLACKBURN, PATENT. PT BEING TURNED, ESPECIALLY WITH RESTRAINTS. BED ALARM ON. SIDERAILS UP X4. CONTINENCE CHECKS, HAS BEEN LESS INCONTINENT THIS SHIFT. NO BM THIS SHIFT. MUCH CONVERSATION HAS BEEN HAD WITH PT REGARDING BEHAVIOR, RESTRAINTS, CARE, AND HOW TO PROGRESS. RECEPTIVE AT TIMES AND UNRECEPTIVE AT OTHER TIMES. WILL CONTINUE TO MONITOR UNTIL SHIFT CHANGE.
--- NOTE | 2019-02-15 06:15 | NUR ---
0300 PT BECOMING AGITATED. ROSELYN HAD BEEN LOOSENED BY PT AND PT FOUND CRAWLING OVER SIDERAILS. SIDRAILS LOWERED TO PROPERLY SITUATE PT AGAIN. PT AT SIDE OF BED, APPEARS SOMEWHART CONFUSED/DELIRIOUS. PT REFUSING TO GET BACK IN BED. MAKES SOME THREATENING COMMENTS TO STAFF. WITH MUCH WORK, STAFF CONVINCE PT TO LAY BACK IN BED. PT CLEANED. SHORTLY AFTER PT FOUND WITH LEG OVER SIDERAIL TRYING TO SLIP OUT OF VEST. WHEN STAFF ENTER, PT BELLIGERENT AND MAKING THREATENING COMMENTS. NO PHYSICAL ACTIONS TAKEN TOWARDS STAFF AT THAT POINT. PT ACTIVELY TRYING TO GET OUT OF BED. [address] PT BACK IN SOFT WRIST RESTRAINTS BILATERALLY, CONTINUE ROSELYN VEST, AND CONTINUE SIDERAILS X 4. ORDER RECEIVED FROM DR EDOUARD.
--- NOTE | 2019-02-15 15:21 | NUR ---
Gaston has just finished working with Jarrod, the physcial therapist, and appears to be quite tired. He is sitting up in the chair, and I offered to recline the chair so that he could rest and allow some of the swelling in his legs to be helped with elevation. IV KPHos is still running, via power glide catheter. The pt has no complaints of pain, and no needs voicd at this time. Hunt vest in use as well as chair alarm for pt safety to avoid his unsafely attempting OOB independently.
--- NOTE | 2019-02-15 17:22 | NUR ---
The pt has been calm, cooperative, appropriate in conversation but forget ful of details such as date, reason for his hospitalization, and has poor insight into his overall condition and capabilities. He has been very pleasant, and able to cooperate with his care in terms of following directions, working with therapists, eating his meals without assistance, and toileting with assistance to stand and use the urinal or bedside commode.
--- NOTE | 2019-02-15 22:23 | NUR ---
ASSUMED CARE OF PATIENT AT APPROXIMATELY 1905 FROM NADEGE Foster RN. PATIENT ALERT AND ORIENTED TO SELF AND YEAR; CONFUSED; UNABLE TO STATE DATE, LOCATION AND EVENT; MAKES ODD STATEMENTS AT TIMES; REPORTS HE FELL OUT OF A HELICOPTER. PATIENT REPORTS CHRONIC PAIN IN BED; WILL MEDICATE PER EMAR. PATIENT REPORTS NUMBNESS AND TINGLING IN HIS BACK THAT IS CHRONIC. PATIENT REPEATEDLY ATTEMPTS TO AMBULATE OUT OF BED; WEAK; FALL RISK; PULLS AT LINES AND CORDS; ROSELYN VEST IN PLACE. PATIENT ATTEMPTS TO GET OUT OF BED 1-3 TIMES AN HOURS; EDUCATED REPEATEDLY. NSR ON TELE; OXYGEN SATURATION ABOVE 90% ON ROOM AIR; EDEMA FROM HIPS DOWN; SEVERLY DISTENDED ABDOMEN. PG FREDDIE S/L. PATIENT CURRENTLY RESTING IN BED; CALL LIGHT IN REACH; BED IN LOWEST POSISTION; BED ALARM ON; WILL CONTINUE TO MONITOR AND ASSESS UNTIL END OF SHIFT.
--- NOTE | 2019-02-16 02:26 | NUR ---
CODE JOE: PCU EMPLOYMENT SERVICES DIRECTOR CALLED STAFF TO REPORT PCU10 OFF TELE; UPON ENTERING THE ROOM PATIENT HAD RIPPED TELE CORDS APART, RIPPED POWERGLIDE OUT OF LEFT ARM. PATIENT IN ROSELYN VEST. COUTIERIER OMA WAS HOLDING PRESSURE ON PATIENT'S PG SITE AND PATIENT BEGAN GRABBING AT LINES AND STAFF; ATTEMPTING TO HIT, KICK AND BITE STAFF; THREATNING STAFF MEMBERS. FOUR STAFF MEMBERS WERE HOLDING ALL FOUR EXTREMITIES; ORDERS RECIEVED FOR IM HALDOL AND SOFT WRIST RESTRAINTS. SECURITY AND NURSING STAFF ARRIVED SHORTLY AFTER CALLING JARRETT DIAZ AND IM HALDOL HAD BEEN GIVEN. PATIENT CALMED DOWN SLIGHTLY BUT STILL AGITATED. DR. JOHNSON CALLED AND ORDERS RECIEVED FOR SOFT RESTRAINTS ON WRISTS AND ANKLES. PATIENT PULLING AT RESTRAINTS. NO IV ACCESS ON PATIENT; DR. JOHNSON NOTIFIED. THREE STAFF MEMBERS TO ATTEMPT IV ACCESS.
[2019-02-16 06:04] LABS: BASOPHILS ABSOLUTE AUTO 0.02 K/mm3 (0.00-0.23); BASOPHILS PERCENT AUTO 0 % (0-2); EOSINOPHILS ABSOLUTE AUTO 0.01 K/mm3 (0.00-0.68); EOSINOPHILS PERCENT AUTO 0 % (0-6); Hematocrit 34.9 % (37.0-53.0); Hemoglobin 11.6 g/dL (13.5-17.5); IMMATURE GRAN ABSOLUTE AUTO 0.59 K/mm3 (0.00-0.10); IMMATURE GRAN PERCENT AUTO 5 % (0-1); LYMPHOCYTES ABSOLUTE AUTO 0.45 K/mm3 (0.84-5.20); LYMPHOCYTES PERCENT AUTO 4 % (21-46); MONOCYTES ABSOLUTE AUTO 0.55 K/mm3 (0.16-1.47); MONOCYTES PERCENT AUTO 4 % (4-13); Mean Corpuscular HGB 37.5 pg (26.0-34.0); Mean Corpuscular HGB Conc 33.2 g/dL (31.5-36.5); Mean Corpuscular Volume 113 fL (80-100); NEUTROPHILS ABSOLUTE AUTO 10.79 K/mm3 (1.96-9.15); NEUTROPHILS PERCENT AUTO 87 % (41-73); NRBC ABSOLUTE 0.03 K/mm3 (0.00-0.02); NRBC Auto 0.2 /100 WBC (0.0-0.2); RDW Coefficient Variation 14.3 % (11.7-14.2); Red Blood Cell Count 3.09 M/mm3 (4.30-5.90); White Blood Cell Count 12.41 K/mm3 (4.00-11.30)
[2019-02-16 06:06] LABS: Platelet Count 190 K/mm3 (150-400)
[2019-02-16 06:17] LABS: Anion Gap 5 mmol/L (6-16); Blood Urea Nitrogen 24 mg/dL (8-24); Bun/Creatinine Ratio 31.2 (12.0-20.0); CO2, Blood 31 mmol/L (21-32); Calcium, Blood 7.4 mg/dL (8.5-10.1); Chloride, Blood 105 mmol/L (98-108); Creatinine, Blood 0.77 mg/dL (0.60-1.20); Glomerular Filtration Rate >60 (60-); Glucose, Blood 153 mg/dL (70-99); Magnesium, Blood 1.8 mg/dL (1.6-2.4); Potassium, Blood 3.5 mmol/L (3.5-5.5); Sodium, Blood 141 mmol/L (136-145)
--- NOTE | 2019-02-16 06:37 | NUR ---
PATIENT MORE ALERT THIS MORNING; FOLLOWING DIRECTION MOST OF TIME; NEW IV PLACED LEFT FOREARM; PATIENT STILL HAVING PERIODS OF CONFUSION AND AGITATION. PATIENT SLEPT ABOUT EIGHT HOURS LAST NIGHT. NO OTHER ACUTE CHANGES TO REPORT. WILL CONTINUE TO MONITOR AND ASSESS UNTIL END OF SHIFT.
--- NOTE | 2019-02-16 11:26 | NUR ---
Conversation with Dr. Sharp and Lay Delaney regarding planning for discharge, medications and overall pt condition and responses to medications. Plan to minimize interruptions to sleep and promote sleep all night to minimize emotional and behavioral outbursts during the night. Medication orders placed by Dr. Sharp for severe agitation. Plan is to see what medication would be helpful so that this information can be used in planning for eventual discharge to an appropriate facilty for the [place] terminal supervisor management of the pt.
--- NOTE | 2019-02-16 16:24 | NUR ---
Gaston has been cooperative the entire shift, cheerful, happily eating and drinking, and sitting up in the chair since just after breakfast time this morning. He has occasionally set the chair alarm off, but has not been strong enough to walk about the room; only able to get up for transfers with maximum assistance with gait belt, walker, and 1-2 staff members assisting him. However, just as I was giving telephone report to Pili, the accepting RN on medical floor, he set the chair alarm off and had removed his clothing, stating it was childish and had peanuts all over it. He was assisted with a different patient gown, but was refusing to put the sary vest back on. He was mildly agitated, using profane language, but not really angry, just talking with staff and saying he didn't like the color of the vest. He was provided with some food and drink, and assisted back into the recliner into a safer position for transfer to medical floor. At the time of transfer, he was calm and no longer agitated.
--- NOTE | 2019-02-16 18:26 | NUR ---
END OF SHIFT SUMMARY: PATIENT TRANSFERRED FROM PCU THIS AFTERNOON. REPORT RECEIVED FROM NADEGE TAY RN. PATIENT STABLE AT TIME OF ARRIVAL. PATIENT COOPERATIVE WITH RN. PATIENT GRUMBLES UNDER HIS BREATH, OFTEN WITH OBSCENTIES. FOLLOWING DIRECTIONS. PATIENT DID NOT ATTEMPT TO GET OUT OF HIS RECLINER AT ANY TIME THIS AFTERNOON OR EVENING. PATIENT WAS PLEASANT WITH THE RN. PATIENT TOOK EVENING MEDICATIONS WITH APPLESAUCE. NO COUGHING, CHOKING OR DIFFICULTY BREATHING AFTER PATIENT TOOK HIS MEDICATIONS. NO DIFFICULTY WITH EATING HIS DINNER NOTED. PATIENT READY TO GO BACK TO BED AFTER DINNER. PATIENT AT THIS TIME REQUIRED THE LIFT.
--- NOTE | 2019-02-17 01:23 | NUR ---
LATE ENTRY FOR 02/16/191929: CARDIAC: PATIENT IS HYPERTENSIVE BP190/115 HR 75, SCHEDULED LISINOPRIL IS GIVEN.
--- NOTE | 2019-02-17 01:26 | NUR ---
LATE ENTRY FOR 02/16/19 @ 1999: AGGITATION: PATIENT IS BECOMING ANXIOUS AND AGGITATED, SETTING OFF BED ALARM. ATTEMPTING TO GET OOB REPEATEDLY. PRN IV BENADRYL IS GIVEN.
--- NOTE | 2019-02-17 01:28 | NUR ---
LATE ENTRY FOR 02/16/19 @ 2030: AGGITATION: PATIENT HAD POOR EFFECT FROM BENADRYL AND CONITUES TO BE AGGITATED AND TRYING TO GET OOB. PATIENT IS UNDIRECTABLE AT TYHIS TIME. PRN IV ATIVAN IS GIVEN.
--- NOTE | 2019-02-17 01:31 | NUR ---
LATE ENTRY FOR 02/16/19 @ 2130: AGGITAION: PATIENT HAD GOOD EFECT FROM IV ATIVAN. PATIENT IS SLEEPING, MAINTAINING 02 SAT AT 93% ON RA.
--- NOTE | 2019-02-17 01:35 | NUR ---
LATE ENTRY FOR 02/16/19 1130: CARDIAC: PATIENT HAD GOOD EFFECT FROM LISINOPRIL, BP IS NOW 155/89. 02 SAT IS 93% ON RA.
--- NOTE | 2019-02-17 04:46 | NUR ---
SHIFT SUMMARY: PATIENT CONTINUES TO HAVE GOOD EFFECT FRIM ATIVAN AND IS SLEEPING COMFORTABLY. PATIENT IS RESISTANT TO INC. CARE AND GRABS STAFF HANDS OR ARM DURING CARE. BP HAS IMPROVED 143/73 WAS LAST READING, PATIENT CONTINUES TO MAINTAIN 02 SATS IN MID 90'S ON ROOM AIR.
--- NOTE | 2019-02-17 07:33 | NUR ---
patient swearing, trying to get out of bed,throwing clothes across the room. per report is lift patient, given benadryl during report. 1/2 hour later patient with legs over side of bed trying to get up. using vulgar language. medicated again. wctm
--- NOTE | 2019-02-17 07:54 | NUR ---
PATIENT STILL TRYING TO GET OUT OF BED.
--- NOTE | 2019-02-17 09:01 | NUR ---
PATIENT COMBATIVE,TRYING TO GET OUT OF BED. PER RESTRAINTS ORDERED. PER CAN GIVE; BENADRYL, ATIVAN AND HALDOL TOGATHER. PER KIKO SHIFT WAS TOLD TO GIVE APART.
--- NOTE | 2019-02-17 09:38 | NUR ---
PATIENT INTIALLY PLACED IN ROSELYN VEST WAS COMBATIVE AND PULLING ON LINES. PATIENT WAS ABLE TO GET FEET ONTO GROUND W/VEST ON. RN WENT IN AND PATIENT SLID OUT OF VEST WITH PATIENT LEANING ON RN. CEILING LIFT USED TO GET PATIENT BACK INTO BED. PATIENT HAD TORN IV IN HALF. IV TAKEN OUT. 2 POINT WRIST RESTRAINTS INTIALLY APPLIED WHEN PATIENT STARTED KICKED STAFF. 4 POINTS SOFT RESTRAINTS APPLIED. ORDER FROM OBTAINED.
--- NOTE | 2019-02-17 10:57 | NUR ---
PER OK TO GIVE BENADRYL, ATIVAN AND HALDOL 4 HOURS AFTER INITIALLY GIVING BENADRYL. PATIENT YELLING, SWEARING, BANGING FEET AGAINST FLOOR BOARD AND PULLING AT RESTRAINTS.WCTM
--- NOTE | 2019-02-17 13:27 | NUR ---
TALKED TO . PATIENT WAS SLEEPING ABOUT 1/2 HOUR AFTER MEDS W/LEG RESTRAINTS TAKEN OFF. ABOUT 1 1/2 HOURS AFTER MEDS PATIENT PULLING AT RESTRAINTS, HITTING FOOT BOARD AND SIDE RAILS. PER INCREASE ATIVAN TO 5 MG AND LEAVE BENADRYL AND HALDOL SAME.
--- NOTE | 2019-02-17 17:44 | NUR ---
ALERT TO SELF. IN 2 POINT SOFT RESTRAINTS. NOT COOPERATIVE THIS SHIFT. COMBATIVE. PUNCHES AGAINST BED RAILS, KICKS BED BOARD OFTEN. EVERY OTHER WORD IS A SWEAR WORD. STS WANTS TO LEAVE. WHEN ASKED WHERE HE WOULD GO STS "TO [facility]." MEPILEX PLACED AROUND WRISTS UNDER SOFT RESTRAINTS PATIENT PULLS HARD ON RESTRAINTS AND TRIES TO HIT SIDE RAILS.MOUTH DRY AND ABLE TO DO ORAL CARE ONCE. YELLS OUT OFTEN. CHANGED WHEN INCONTINENT OF URINE. BED IN LOW POSITION. WCTM.
--- NOTE | 2019-02-17 23:09 | NUR ---
02/17/19 2101 PT STILL VERY AGITATED EVEN AFTER GIVEN ATIVAN AND HALDOL IV.OFFERED FLUIDS BUT JUST CONTINUES TO CURSE AND PULL ON RESTRAINTS.
--- NOTE | 2019-02-18 04:58 | NUR ---
02/18/19 6995 Pt sleeping well. Restraints secure. LAB here to draw blood and RN will have them return at 7 AM to allow pt to rest/sleep. Vitals remain high due to pt's extreme agitation when awake. Pt pulls on restraints very forcefully and has caused some skin bleeding and bruising. Incontinent of urine three times.
--- NOTE | 2019-02-18 07:18 | NUR ---
02/18/19 0615 VERY RESTLESS NIGHT EVEN WHEN MEDICATED. ROSELYN VEST AND SOFT RESTRAINTS X [address] ALL SHIFT[address] PT VERY AGRESSIVELY PULLING ON RESTRAINTS. INCONTINENT AND CHANGED SEVERAL TIMES THIS SHIFT.
[2019-02-18 08:46] LABS: Anion Gap 6 mmol/L (6-16); Blood Urea Nitrogen 11 mg/dL (8-24); Bun/Creatinine Ratio 18.5 (12.0-20.0); CO2, Blood 35 mmol/L (21-32); Calcium, Blood 7.5 mg/dL (8.5-10.1); Chloride, Blood 103 mmol/L (98-108); Glomerular Filtration Rate >60 (60-); Glucose, Blood 144 mg/dL (70-99); Magnesium, Blood 1.7 mg/dL (1.6-2.4); Potassium, Blood 2.8 mmol/L (3.5-5.5); Sodium, Blood 144 mmol/L (136-145)
--- NOTE | 2019-02-18 09:13 | NUR ---
TALKED TO ABOUT INCREASE AGITATION. BENADRYL CHANGED TO 50 MG Q 4 HOURS. PHARMACY CALLED TO SEE IF THEY WOULD LINK ;BENADRYL, HALDOL AND ATIVAN.
--- NOTE | 2019-02-18 10:54 | NUR ---
PATIENT CALM AT THIS TIME. FIRST TIME ABLE TO GET ACCURATE BLD PRESS PATIENT HAS BEEN; THRASHING, BANGING ON SIDE RAILS AND BED BOARD.SEE GRAPH.
--- NOTE | 2019-02-18 12:18 | NUR ---
AWARE PATIENT NOT EATTING AND NO MEDS GIVEN. AWARE POTASSIUM LEVEL AND STS ORDERED IV POTASSIUM. WILL GIVE WHEN PHARMACY HAS READY.
[2019-02-18 13:34] LABS: Base Excess Venous 16.1 mmol/L; PCO2 Venous 35.5 mmHg (38-42); PO2 Venous 60.2 mmHg (38-42)
[2019-02-18 13:35] LABS: pH Blood Venous 7.63 (7.34-7.37)
--- NOTE | 2019-02-18 14:04 | NUR ---
NOTIFIED ABG IN COMPUTER. IV MEDS GOING IN SLOWER THAN RECOMMENDED TO SEE HOW PATIENT TOLERATES.
--- NOTE | 2019-02-18 14:59 | NUR ---
IV INFILTRATED. CHARGE TO PLACE A POWERGLIDE.
--- NOTE | 2019-02-18 15:09 | NUR ---
PER ADJUSTED LORAZEPAM TO 7 MG Q 4HOURS.
--- NOTE | 2019-02-18 16:55 | NUR ---
CALLED ABOUT TEMP. REQUEST CT TYLENOL. ALSO ADVISED DIFFICULT TO GET ACCURATE B.P. PATIENT PULLING, TRYING TO FLEX ARM DURING PROCEDURE. ALSO DOES NOT HOLD LEG STILL WHEN ATTEMPTING TO TAKE B.P. ON LEG. ADVISED RESPIRATIONS ANYWHERE FROM 20 -30. GOOD B.P WAS TAKEN AT ABOUT 11AM WHEN PATIENT WAS CALM. SEE GRAPH. WCTM
--- NOTE | 2019-02-18 17:53 | NUR ---
TALKED TO ABOUT AFTER PLACING TYLENOL PT HAS INCREASE STOOL IN RECTUM. DISCUSSED POSSIBLE CLINIMEX IF NO IMPROVEMENT TOMORROW. WILL CHECK CHART AND ORDER SUPPOSITORY.AWAITING ORDERS
--- NOTE | 2019-02-18 18:22 | NUR ---
LEFT 2 MESSAGES FOR ABOUT USING BENADRYL AND HALDOL, THEN WAITING 1 HOUR FOR RESPONSE AND IF NEEDED DO ATIVAN. HOSPITALIST THOUGHT PATIENT SEEMED TO DO BETTER WHEN CLEARED OF BENZODIAZEPINES. WAITING CALL BACK. PATIENT NOT NEEDING MEDS RIGHT NOW.
--- NOTE | 2019-02-18 18:25 | NUR ---
ALERT TO SELF. NO RELATIVES/FRIENDS IN TO VISIT. PULLS AT RESTRAINTS. IV WAS PLACED AND LOST WITHIN ABOUT 15 MINUTES DUE TO PATIENT PULLING. BRUISES T/O BODY. SKIN TEARS EASILY. MEPILEX SKIN PROTECTORS TO HEELS. AWARE DIFFICULT TO GET ACCURATE B.P ON PATIENT DUE TO UNCOOPERATIVE WHEN TRYING TO TAKE VITAL SIGNS. POWERGLIDE PLACED RT UPPER ARM AND INFUSING. ORAL CARE DONE W/SUCTION AND WET SPONGES. ATTEMPTED TO FEED AND PATIENT LEAVES FOOD IN MOUTH.WILL LIFT HEAD AFTER MULTIPLE COMMANDS TO DO SO. WCTM
--- NOTE | 2019-02-18 19:42 | NUR ---
EMILEE RETURNED CALL, GAVE OKAY TO TRY HALDOL AND BENADRYL FIRST AND THEN GIVE ATIVAN IF NO RESPONSE.
--- NOTE | 2019-02-18 21:40 | NUR ---
DIFFICULT TO OBTAIN ACCURATE BP READING D/T PATIENT THRASHING, BANGING ARMS AND LEGS AGAINST HEAD BOARD, PULLING AWAY FROM STAFF
--- NOTE | 2019-02-18 21:51 | NUR ---
PT CONT TO RESTLESS COMBATIVE YELLING OUT AFFTER GIVING 5MG IV HALDOL AND [address] HEBERT, TO GIVE 7 MG IV ATIVAN SINCE OTHER MEDS INEFFECTIVE AFTER ONE HR.
--- NOTE | 2019-02-19 04:52 | NUR ---
SHIFT SUMMARY PT REMAINS CONFUSED, AGITATED, RESTLESS TONIGHT. REMAINS IN 4-PT WRIST/ANKLE RESTRAINTS, ROSELYN VEST FOR SAFETY TO STAFF/SELF/TUBES/LINES. PT IS CONSTANTLY THRASHING, BANGING ON THE HEADBOARD/FOOT BOARD, PULLING ON RESTRAINTS. RANDOMLY YELLS OUT. PT IS RESISTFUL TO ALL CARE. ADMINISTERED PRN HALDOL AND BENADRYL TWICE, PRN ATIVAN GIVEN ONCE AN HOUR LATER AFTER NO EFFECT. PG TO YOVANIE IS PATENT AND DRAWING BLOOD. PT HAS FINALLY SETTLED DOWN AT ABOUT 0400, APPEARS TO BE RESTING BUT IS STILL FIDGETING IN BED. PT INCONTINENT OF BOWEL AND BLADDER, SUPPOSITORY GIVEN TONIGHT. PT HAS SMALL FORMED BM X1. 2+ PITTING EDEMA NOTED TO BUE/BLE, WEEPING IN SOME AREAS. WILL CONT TO MONITOR AND PROVIDE CARE UNTIL PRESUMED BY ONCOMING RN.
[2019-02-19 04:53] LABS: Hematocrit 33.5 % (37.0-53.0); Hemoglobin 11.4 g/dL (13.5-17.5); Mean Corpuscular HGB 36.8 pg (26.0-34.0); Mean Corpuscular Volume 108 fL (80-100); Mean Platelet Volume 9.9 fL (9.1-12.4); NRBC ABSOLUTE 0.17 K/mm3 (0.00-0.02); NRBC Auto 1.2 /100 WBC (0.0-0.2); Platelet Count 219 K/mm3 (150-400); RDW Coefficient Variation 14.6 % (11.7-14.2); RDW Standard Deviation 58.6 fL (35.1-46.3); White Blood Cell Count 14.34 K/mm3 (4.00-11.30)
[2019-02-19 05:20] LABS: BAND PERCENT MAN 10 % (0-8); BASOPHILS PERCENT MAN 0 % (0-2); EOSINOPHILS PERCENT MAN 0 % (0-6); LYMPHOCYTES ABSOLUTE MAN 0.14 K/mm3 (0.84-5.20); LYMPHOCYTES PERCENT MAN 1 % (21-46); MONOCYTES ABSOLUTE MAN 0.43 K/mm3 (0.16-1.47); MONOCYTES PERCENT MAN 3 % (4-13); MYELOCYTE ABSOLUTE MAN 0.14 K/mm3 (0.00-0.00); MYELOCYTE PERCENT MAN 1 % (0-0); NEUTROPHILS ABSOLUTE MAN 13.62 K/mm3 (1.96-9.15); SEG NEUTROPHILS PERCENT MAN 85 % (41-73); TOTAL CELLS COUNTED 100
[2019-02-19 05:34] LABS: Anion Gap 9 mmol/L (6-16); Blood Urea Nitrogen 8 mg/dL (8-24); Bun/Creatinine Ratio 11.3 (12.0-20.0); CO2, Blood 33 mmol/L (21-32); Chloride, Blood 104 mmol/L (98-108); Creatinine, Blood 0.71 mg/dL (0.60-1.20); Glomerular Filtration Rate >60 (60-); Glucose, Blood 111 mg/dL (70-99); Magnesium, Blood 1.5 mg/dL (1.6-2.4); Phosphorus, Blood 2.4 mg/dL (2.5-4.9); Potassium, Blood 2.5 mmol/L (3.5-5.5); Sodium, Blood 146 mmol/L (136-145)
--- NOTE | 2019-02-19 10:33 | NUR ---
REMOTE MONITOR CAMERA ON FOR SAFETY. SET UP OPERATOR MORIAH CONFIRMS PATIENT IN BED.
--- NOTE | 2019-02-19 15:54 | NUR ---
SHIFT SUMMARY PATIENT CONTINUES TO BE RESPONSIVE ONLY TO PHYSICAL AND SOMETIMES VERBAL STIMULI. PATIENT CANNOT ANSWER QUESTIONS VERBALLY. PATIENT MOANS AND IS RESTLESS, FIGHTING AGAINST RESTRAINTS. PRN HALDOL AND BENDRYL GIVEN X 2 FOR AGITATION. PATIENT HAS HAD NO PO INTAKE IN SEVREAL DAYS. ORDERS FOR TPN GIVEN. TWO PERSON ASSIST FOR BED MOBILITY AND PERSONAL CARE. PT UNABLE TO WORK WITH PATIENT DUE TO CONFUSION AND LETHARGY. PRN HYDRALAZINE GIVEN FOR ELEVATED BLOOD PRESSURE X 2. ORDERS FOR CATAPRES PATCH GIVEN. ETHICS CONSULT INITIATED TO REVIEW PATIENT'S CODE STATUS.
--- NOTE | 2019-02-19 21:27 | NUR ---
TELEMETRY EVENT PT HAS HAD SEVERAL RUNS OF TACHYCARDIA, HR UP INTO THE 150s, DESTINATION SIGN REPAIRER UNABLE TO TELL IF AFIB OR NOT. PT DOES HAVE HX OF AFIB . PT APPEARS TO BE RESTING AND IS ASYMPTOMATIC. MANUAL RADIAL PULSE IS 100-110s AT THIS TIME. AWARE.
--- NOTE | 2019-02-19 23:54 | NUR ---
TELEMETRY EVENT PT HR 190s, PER PRESS OPERATOR HEAVY DUTY. PT NOTED TO BE SLEEPING IN BED. NOTIFIED AUTOMATIC BEAM WARPER TENDER, ERIC MCCRARY. EKG DONE, NSR @ [address] B[address] SEE VITALS[address] JOYNER NOTIFIED, ORDERS MAG IVPB.
[2019-02-20 01:07] LABS: Anion Gap 8 mmol/L (6-16); Blood Urea Nitrogen 11 mg/dL (8-24); Bun/Creatinine Ratio 15.2 (12.0-20.0); CO2, Blood 35 mmol/L (21-32); Calcium, Blood 7.2 mg/dL (8.5-10.1); Chloride, Blood 103 mmol/L (98-108); Creatinine, Blood 0.73 mg/dL (0.60-1.20); Glomerular Filtration Rate >60 (60-); Glucose, Blood 177 mg/dL (70-99); Potassium, Blood 2.5 mmol/L (3.5-5.5); Sodium, Blood 146 mmol/L (136-145)
--- NOTE | 2019-02-20 02:36 | NUR ---
NOTIFIED DR JOYNER OF SUSTAINING HR 150s-160s, TELE REPORTS DIFFICULT TO DETERMINE RHYTHM AT THIS TIME. BP 185/98, ADMINISTERED 10 MG IV HYDRALAZINE. PT IS RECIEVING IV KCL INFUSION, RECIEVED MAG IVPB. NO FURTHER ORDERS AT THIS TIME.
--- NOTE | 2019-02-20 04:43 | NUR ---
SHIFT SUMMARY PT HAS BEEN EXTREMELY AGITATED AND CALLING OUT ALL NIGHT, YELLING PROFANITIES DISRUPTING OTHER PATIENTS. ADMINISTERED PRN HALDOL AND PRN BENADRYL THREE TIMES TONIGHT WITH LITTLE EFFECT. PT HAS HAD SEVERAL TELEMETRY EVENTS, SVT RANGING FROM 160-[address] JOYNER NOTIFIED OF EACH OCCURENCE. ORDERS IV KCL AND IV MAG. KCL STILL INFUSING AT THIS TIME. BP ELEVATED 185/98, ADMINISTERED HYDRALAZINE. PT HAS HAD SEVERAL SMALL BMs. CURRENTLY IN BILAT SOFT WRIST RESTRAINTS AND ROSELYN VEST, PT HIGH FALL RISK AND SWINGING/KICKING AT STAFF DURING CARE. VERY UNCOOPRATIVE WITH CARE. SLAMMING HANDS AGAINST SIDE RAILS AND KICKING FEET ON FOOTBOARD. HOWEVER, ORIENTATION HAS IMPROVED A BIT COMPARED TO LAST NIGHT, PT IS EXTREMELY DIFFICULT TO UNDERSTAND D/T GARBLED SPEECH BUT IS ABLE TO REPORT FULL NAME AND BIRTHDAY. NO OTHER CHANGES TO REPORT. WILL CONT TO MONITOR AND PROVIDE CARE UNTIL PRESUMED BY ONCOMING.
[2019-02-20 04:55] LABS: Anion Gap 8 mmol/L (6-16); Blood Urea Nitrogen 13 mg/dL (8-24); Bun/Creatinine Ratio 18.5 (12.0-20.0); CO2, Blood 35 mmol/L (21-32); Calcium, Blood 7.2 mg/dL (8.5-10.1); Chloride, Blood 102 mmol/L (98-108); Glomerular Filtration Rate >60 (60-); Glucose, Blood 175 mg/dL (70-99); Magnesium, Blood 1.7 mg/dL (1.6-2.4); Phosphorus, Blood 2.5 mg/dL (2.5-4.9); Potassium, Blood 2.5 mmol/L (3.5-5.5); Sodium, Blood 145 mmol/L (136-145); Triglycerides 214 mg/dL (30-160)
--- NOTE | 2019-02-20 05:18 | NUR ---
HR 160s RHYTHM SVT PT HAD SUSTAINED SVT IN THE 140s-160s AT THIS TIME. PT RESTING IN BED. BP STILL ELEAVETD 186/99. NOTIFIED DR JOYNER. ORDERED IV METOPROLOL AND ADDITIONAL KCL IVPB. DR JOYNER TO ENTER ORDERS.
--- NOTE | 2019-02-20 06:31 | NUR ---
DR JOYNER ORDERS SECOND DOSE OF IV METOPROLOL. NOTIFIED TELEMETERY TECH PRIOR TO ADMIN.
--- NOTE | 2019-02-20 10:36 | NUR ---
PT RESTLESS IN BED AND YELLING OUT. UNDERSTOOD "I NEED TO CRAP". ROLLED HIM OVER AND HE HAD A LARG FORMED BM. QUIETED DOWN IMMEDIATELY AND RESTED FOR A SHORT TIME. STARTED BECOMING RESTLESS AGAIN, WIGGLING AROUND IN BED. DOESN'T VERBALLY RESPOND TO QUESTIONS BUT DOES MUMBLE IN FREQUENTLY.
--- NOTE | 2019-02-20 17:58 | NUR ---
SHIFT SUMMARY PT SLEEPING PEACEFULLY AT THIS TIME. MEDICATED APPROX 1615 AND SLOWLY CALMED DOWN AND FELL ASLEEP. HAS HAD SEVERAL MEDIUM AND LARGE BMS TODAY. ABDOMEN REMAINS LARGE BUT LESS FIRM SINCE JUST PRIOR TO FIRST BM. DID APPEAR TO BE RESPONDING TO QUESTIONS ASKED THIS AFTERNOON BUT STILL HARD TO UNDERSTAND. O2 IN PLACE AND OXYGEN SATS 94-96% CREAM APPLIED TO DRY SKIN.
[2019-02-21 03:57] LABS: Hematocrit 31.1 % (37.0-53.0); Hemoglobin 10.4 g/dL (13.5-17.5); Mean Corpuscular HGB 37.5 pg (26.0-34.0); Mean Corpuscular HGB Conc 33.4 g/dL (31.5-36.5); NRBC ABSOLUTE 0.06 K/mm3 (0.00-0.02); NRBC Auto 0.5 /100 WBC (0.0-0.2); Platelet Count 212 K/mm3 (150-400); RDW Coefficient Variation 14.6 % (11.7-14.2); Red Blood Cell Count 2.77 M/mm3 (4.30-5.90); White Blood Cell Count 11.28 K/mm3 (4.00-11.30)
[2019-02-21 04:00] LABS: Mean Corpuscular Volume 112 fL (80-100)
--- NOTE | 2019-02-21 04:10 | NUR ---
PT IS EXTREMELY AGITATED AT THIS TIME, KICKING SIDE RAILS HITTING HANDS AGAINST SIDERAILS YELLING OUT. ADMINISTERING HALDOL BENADRYL AT THIS TIME, WILL ADMINISTER IV ATIVAN IF THIS DOES NOT PROVIDE RELIEF.
[2019-02-21 04:13] LABS: Anion Gap 3 mmol/L (6-16); Blood Urea Nitrogen 20 mg/dL (8-24); Bun/Creatinine Ratio 28.9 (12.0-20.0); CO2, Blood 37 mmol/L (21-32); Calcium, Blood 7.4 mg/dL (8.5-10.1); Chloride, Blood 104 mmol/L (98-108); Creatinine, Blood 0.69 mg/dL (0.60-1.20); Glomerular Filtration Rate >60 (60-); Glucose, Blood 179 mg/dL (70-99); Magnesium, Blood 2.1 mg/dL (1.6-2.4); Phosphorus, Blood 3.6 mg/dL (2.5-4.9); Potassium, Blood 3.9 mmol/L (3.5-5.5); Sodium, Blood 144 mmol/L (136-145)
--- NOTE | 2019-02-21 04:26 | NUR ---
PT SETTLED DOWN AND IS NOW RESTING
[2019-02-21 04:43] LABS: BAND PERCENT MAN 4 % (0-8); BASOPHILS PERCENT MAN 0 % (0-2); EOSINOPHILS PERCENT MAN 0 % (0-6); LYMPHOCYTES ABSOLUTE MAN 0.11 K/mm3 (0.84-5.20); LYMPHOCYTES PERCENT MAN 1 % (21-46); MONOCYTES ABSOLUTE MAN 0.67 K/mm3 (0.16-1.47); MONOCYTES PERCENT MAN 6 % (4-13); NEUTROPHILS ABSOLUTE MAN 10.49 K/mm3 (1.96-9.15); SEG NEUTROPHILS PERCENT MAN 89 % (41-73); TOTAL CELLS COUNTED 100
--- NOTE | 2019-02-21 05:14 | NUR ---
SHIFT SUMMARY PT HAS BEEN SLEEPING MOST OF THE TIME, WITH MOMENTS OF AGITATION THAT ARE WELL CONTROLLED WITH PRN HALDOL AND BENADRYL. HAVE NOT GIVEN PRN ATIVAN TONIGHT BEAUSE PT IS STILL QUITE LETHARGIC AND SEDATED FROM RECIEVING IT EARLIER IN DAY. Q6H BLOOD SUGARS HAVE BEEN >190 TONIGHT, ADMINISTERED 20 UNITS LANTUS PER ORDERS. BILAT SOFT WRIST RESTRAINTS AND ROSELYN VEST IN PLACE D/T COMBATIVE BEHAVIOR, IMPULSIVITY, HIGH FALL RISK, PULLING AT LINES/TUBES. PPN CONT TO INFUSE TO DEN PG. WILL CONT TO MONITOR AND PROVIDE CARE UNTIL PRESUMED BY ONCOMING RN.
--- NOTE | 2019-02-21 07:06 | NUR ---
ASSUMED CARE OF PT- REPORT COMPLETED WITH NIGHT RN. PT CURRENTLY SLEEPING IN BED, ROSELYN VEST IN PLACE WITH BILATERAL WRIST RESTRAINTS. PER REPORT PT HAD SEVERAL EPISODES LAST NIGHT REQUIREING IV MEDICATION. CURRENTLY NO S&S OF DISTRESS.
[2019-02-21 16:58] LABS: Source, Urine Catheter
[2019-02-21 17:03] LABS: Bilirubin, Urine Neg (Neg); Blood, Urine 1+ (Neg); Glucose Qualitative, Urine Neg (Neg); Ketones, Urine 1+ (Neg); Leukocyte Esterase, Urine Neg (Neg); Nitrite, Urine Neg (Neg); Protein, Urine 1+ (Neg); Urobilinogen, Urine 1+ (Normal)
[2019-02-21 17:04] LABS: Appearance, Urine Hazy (Clear); Color, Urine Yellow (P-Yellow)
[2019-02-21 17:13] LABS: Bacteria Rare /hpf; Squamous Epithelial Cells Not Seen /hpf (Few)
--- NOTE | 2019-02-21 17:25 | NUR ---
HIGH VEWS SCORE- PT HAD A VEWS SCORE OF 5 BP 202/122 HR 108 RESP 26 O2 SATS 88. PT INCREASED TO 4L O2 TO MAINTAIN SATS ABOVE 90. PT HAS BEEN VOIDING ALL SHIFT INCONTINENT VOIDS, BLADDER SCAN AT THE TIME OF THE HIGH VEWS SCORE (POST VOID) WAS 982ML. CALLED DR SALAS AND RECIEVED ORDER FOR CACERES PLACEMENT. PLACED THE CACERES, PT TOLLERATED WELL, IMMEDIATE RETURN WAS 1200ML. PT WAS GIVEN SCHEDULED IV METOPROLOL, ROLLED ONTO HIS SIDE INCREASED THE O2. PT BECAME QUIET FOR THE FIRST TIME ALL SHIFT, HE RELAXED AND HIS HR REDUCED. FOLLOW UP VITALS WERE 175/98 RESP 16 HR 81 AND O2 93% ON 4L. CALLED DR SALAS FOR FOLLOW UP NEW VEWS SCORE 1. PT HAD RECIEVED 4MG IV ATIVAN EARLIER IN THE SHIFT, DOSE WAS REDUCED FROM 7 TO 4 D/T SAFETY CONCERNS FROM NURSING STAFF; HOWEVER 4MG IV ATIVAN WAS COMPLETELY INEFFECTIVE. ORDER CHANGED BACK TO 7MG IV Q4P PER DR SALAS. D/T INCREASED O2 REQUIREMENTS TO MAINTAIN SATS ABOVE 90% ORDER FOR 40MG IV LASIX OT WAS RECIEVED. ORDER PLACED FOR A 1 VIEW CHEST XRAY FOR TOMORROW MORNING. IS AWARE OF PT STATUS AT THIS TIME. WILL CTM.
--- NOTE | 2019-02-21 19:35 | NUR ---
Review of pt with staff and assisted with care. Paliative care has not been involved in managment due to psyciatric needs of pt and complex medication needs. Dr Crews has been managing meds. Nursing placed morales Catheter. Assisted nuring with care and assessment of pt with, Respitory rate elevated increased respirations. spoke with pt he was able to answer questions with great difficulty. Nodded yes and made eye contact to having a headache. asked if ringing in ears he stated he has had a little bit. he denies nausea. non specific pain he tried to describe that he hurts all over. Pt repositioned way over on side with some relief. Review of chart medications and diagnostics with nursing for physician update and possible plan of care. Review of PPN and pt tolerace of hydartion. pt pps score is 20%. suggest daily weights and strict I/O and neuro checks. Nursing has not relayed any signs of seizure activity. Reviw of physician note of assessment for possible korsakoff syndrome. suggest multidisciplinary team meeting. meeting.
--- NOTE | 2019-02-21 19:50 | NUR ---
SHIFT SUMMARY- PT HAS RECIEVED VERY FREQUENT CARE TO KEEP WATCH ON THE LINES AND TUBES. PT IS STRONG AND CAN GET OUT OF THE WRIST RESTRAINTS IF HE WORKS AT IT LONG ENOUGH. PT DID GET AHOLD OF THE CACERES CATHETER AND BROKE THE STAT LOC AT THE END OF THE SHIFT, LINE WAS OBSCURED FROM THE PT WITH BED SHEETS. NIGHT RN AWARE OF THE NEED FOR A NEW STAT LOC, CACERES EMPTIED AT THIS TIME 1000ML CLEAR YELLOW URINE. WRIST RESTRAINT ADJUSTED. PT RECIEVED A BED BATH TODAY. MEPILEX ON BILATERAL WRISTS FOR PREVENTION OF INJURY D/T PT PULLING ON RESTRAINTS. PT IS MINIMALLY RESPONSIVE VERBALLY, HOWEVER HE FOLLOWS VERY STARIGHT BASIC INSTRUCTIONS (MAYI, RELAX THIS HAND) WITH PHYSICAL TOUCH TO AID IN CUEING. PASSED ALL ON TO NIGHT RN IN BEDSIDE REPORT. PT BEGINNING TO BECOME MORE AGGITATED AND CALLING OUT. IV ATIVAN IS AVAILABLE AT THE NEW DOSE 7MG IV PER DR ORDER.
[2019-02-22 05:33] LABS: BASOPHILS ABSOLUTE AUTO 0.03 K/mm3 (0.00-0.23); BASOPHILS PERCENT AUTO 0 % (0-2); EOSINOPHILS PERCENT AUTO 0 % (0-6); Hemoglobin 10.9 g/dL (13.5-17.5); IMMATURE GRAN ABSOLUTE AUTO 0.38 K/mm3 (0.00-0.10); IMMATURE GRAN PERCENT AUTO 3 % (0-1); LYMPHOCYTES ABSOLUTE AUTO 0.28 K/mm3 (0.84-5.20); LYMPHOCYTES PERCENT AUTO 2 % (21-46); MONOCYTES ABSOLUTE AUTO 0.63 K/mm3 (0.16-1.47); MONOCYTES PERCENT AUTO 5 % (4-13); Mean Corpuscular HGB 36.5 pg (26.0-34.0); Mean Corpuscular Volume 110 fL (80-100); NEUTROPHILS ABSOLUTE AUTO 12.14 K/mm3 (1.96-9.15); NEUTROPHILS PERCENT AUTO 90 % (41-73); NRBC ABSOLUTE 0.04 K/mm3 (0.00-0.02); NRBC Auto 0.3 /100 WBC (0.0-0.2); Platelet Count 247 K/mm3 (150-400); RDW Coefficient Variation 14.2 % (11.7-14.2); RDW Standard Deviation 58.4 fL (35.1-46.3); Red Blood Cell Count 2.99 M/mm3 (4.30-5.90); White Blood Cell Count 13.46 K/mm3 (4.00-11.30)
[2019-02-22 05:55] LABS: Magnesium, Blood 1.9 mg/dL (1.6-2.4)
[2019-02-22 05:56] LABS: Anion Gap 5 mmol/L (6-16); Blood Urea Nitrogen 20 mg/dL (8-24); Bun/Creatinine Ratio 29.9 (12.0-20.0); CO2, Blood 39 mmol/L (21-32); Calcium, Blood 7.6 mg/dL (8.5-10.1); Chloride, Blood 102 mmol/L (98-108); Creatinine, Blood 0.67 mg/dL (0.60-1.20); Glomerular Filtration Rate >60 (60-); Glucose, Blood 129 mg/dL (70-99); Phosphorus, Blood 3.3 mg/dL (2.5-4.9); Potassium, Blood 2.9 mmol/L (3.5-5.5); Sodium, Blood 146 mmol/L (136-145)
--- NOTE | 2019-02-22 06:14 | NUR ---
CLINICAL PHARMACY SPECIALIST SUMMARY PT DID NOT SLEEP THROUGHOUT THE NIGHT. WAS IRRITABLE, AGITATED AND KEPT PULLING ON URINARY CATH. STAT LOCK HAS BEEN PULLED OFF A COUPLE OF TIMES AND NEW ONES HAVE BEEN PUT ON. PT MOANS AND MUMBLES INCOMPREHENSIBLY THROUGHOUT THE SHIFT AND AT TIMES WOULD YELL OUT. NURSE KEPT CLOSE EYE ON PT THROUGHOUT THE SHIFT. O2 SAT RANGES FROM HIGH 80'S TO MID 90'S ON 4 L OF O2. PT CONTINUES TO HAVE ELEVATED BP 170S TO 190S SYSTOLIC. OFTEN RESTLESS AND DOES NOT HOLD STILL WHILE HAVING VITALS TAKEN. VASOTEC GIVEN FOR HIGH BP CLOSE TO END OF SHIFT. ATIVAN AND HALDOL GIVEN WITH MINIMAL EFFECTIVENESS. CACERES CATH PLACED DURING DAY SHIFT. DRAINING LARGE AMOUNTS OF CLEAR YELLOW URINE. DRAINING CLOSE TO 3 L OF URINE THIS SHIFT.
--- NOTE | 2019-02-22 18:35 | NUR ---
PT. LYING QUIETLY AT THIS TIME. BREATHING DEEP AND UNEVEN OXYGEN LEVELS STAYING IN THE MID NINETIES. PT. HAS FINALLY SETTLED DOWN AND GETTING REST . WILL CONTINUE TO MONITOR THE NEED OF RESTRAINTS.
--- NOTE | 2019-02-23 04:40 | NUR ---
SHIFT SUMMARY: 63 Y/O MALE ADMITTED FOR CELLULITIS OF THE LEG, ETOH AND DVT OF THE LUE. PATIENT HAS BEEN LETHARGIC MOST OF THE SHIFT. HE IS UNABLE TO SIT STILL MOST OF THE TIME, MOVING HIS ARMS AND LEGS AROUND BUT HAS EYES CLOSED. HE WILL HAVE PERIODS OF SLEEPING THROUGHOUT THE RESTLESSNESS. WHEN CHECKING ON HIM HE WOULD WAKE UP EASILY AND START TO MOVE OR RESPOND PHYSICALLY TO STAFF INTERACTIONS. POSI VEST AND SOFT WRIST RESTRAINTS HAVE REMAINED IN PLACE TO PREVENT HIM PULLING OFF HIS TELE, OR AT HIS CATHETER. WHEN TURNING HIM HE ATTEMPTED TO GET OUT OF BED. MEDS WERE GIVEN PER EMAR, IV CONTINUED TO INFUSE WITH NO PROBLEMS. RIGHT MID ARM AREA STARTED TO WEEP, DRESSING APPLIED. DRESSINGS WERE REPLACED ON THE HEELS, AND PATIENT HAS SMALL BOWEL MOVEMENT. ORAL CARE WAS PROVIDED WELL. WILL CONTINUE TO MONITOR TO END OF SHIFT, REPORT WILL BE GIVEN TO DAY SHIFT RN.
--- NOTE | 2019-02-23 06:49 | NUR ---
PATIENT WOKE UP AROUND 0530 THIS MORNING, VERY AGGITATED AND WANTING TO GET OUT OF BED. HE WAS PULLING AGAINST HIS RESTRAINTS, PUSHING OFF THE PILLOWS TO THE FLOOR, YELLING OUT, PULLING ON HIS LINES. JUST WOULD NOT CALM DOWN. TRIED TO GIVE JUST HALDOL THIS DID NOT CALM HIM DOWN THEREFORE GAVE THE ATIVAN AND BENADRYL ORDERED. STILL HAD TO HOLD THE PATIENT STILL FOR LAB TO GET BLOOD DRAW DONE HE WAS PULLING AGAINST US. WILL INFORM DAY SHIFT OF CHANGE.
[2019-02-23 06:58] LABS: BASOPHILS ABSOLUTE AUTO 0.04 K/mm3 (0.00-0.23); BASOPHILS PERCENT AUTO 0 % (0-2); EOSINOPHILS PERCENT AUTO 0 % (0-6); Hematocrit 32.2 % (37.0-53.0); Hemoglobin 11.2 g/dL (13.5-17.5); IMMATURE GRAN ABSOLUTE AUTO 0.41 K/mm3 (0.00-0.10); IMMATURE GRAN PERCENT AUTO 3 % (0-1); LYMPHOCYTES ABSOLUTE AUTO 0.32 K/mm3 (0.84-5.20); LYMPHOCYTES PERCENT AUTO 2 % (21-46); MONOCYTES ABSOLUTE AUTO 0.69 K/mm3 (0.16-1.47); MONOCYTES PERCENT AUTO 5 % (4-13); Mean Corpuscular HGB 37.6 pg (26.0-34.0); Mean Corpuscular HGB Conc 34.8 g/dL (31.5-36.5); Mean Corpuscular Volume 108 fL (80-100); Mean Platelet Volume 9.9 fL (9.1-12.4); NEUTROPHILS ABSOLUTE AUTO 12.79 K/mm3 (1.96-9.15); NEUTROPHILS PERCENT AUTO 90 % (41-73); NRBC ABSOLUTE 0.07 K/mm3 (0.00-0.02); NRBC Auto 0.5 /100 WBC (0.0-0.2); Platelet Count 240 K/mm3 (150-400); RDW Coefficient Variation 13.9 % (11.7-14.2); RDW Standard Deviation 55.6 fL (35.1-46.3); Red Blood Cell Count 2.98 M/mm3 (4.30-5.90); White Blood Cell Count 14.25 K/mm3 (4.00-11.30)
[2019-02-23 07:14] LABS: Anion Gap 6 mmol/L (6-16); Blood Urea Nitrogen 21 mg/dL (8-24); Bun/Creatinine Ratio 35.1 (12.0-20.0); CO2, Blood 38 mmol/L (21-32); Calcium, Blood 7.6 mg/dL (8.5-10.1); Chloride, Blood 101 mmol/L (98-108); Glomerular Filtration Rate >60 (60-); Glucose, Blood 132 mg/dL (70-99); Potassium, Blood 2.5 mmol/L (3.5-5.5); Sodium, Blood 145 mmol/L (136-145)
--- NOTE | 2019-02-23 18:20 | NUR ---
PT. SLEEPING PEACEEFULLY AT THIS TIME. PT. HAS HAD 2 BM'S TODAY. PT. BECOMES EXTREMELY RESTLESS AFTER HE HAS A BM. ALL TOGETHER TODAY THE PT. HAS APPEARED CALMER AND RESTING MORE EASILY.
[2019-02-24 05:40] LABS: Magnesium, Blood 1.7 mg/dL (1.6-2.4)
[2019-02-24 06:04] LABS: Anion Gap 5 mmol/L (6-16); Blood Urea Nitrogen 21 mg/dL (8-24); Bun/Creatinine Ratio 33.8 (12.0-20.0); CO2, Blood 40 mmol/L (21-32); Calcium, Blood 7.6 mg/dL (8.5-10.1); Chloride, Blood 99 mmol/L (98-108); Creatinine, Blood 0.62 mg/dL (0.60-1.20); Glomerular Filtration Rate >60 (60-); Glucose, Blood 123 mg/dL (70-99); Potassium, Blood 2.3 mmol/L (3.5-5.5); Sodium, Blood 144 mmol/L (136-145)
--- NOTE | 2019-02-24 06:32 | NUR ---
CRITICAL LAB VALUE [place] FROM LAB NOTIFIED ME OF CRITICAL K @2.3, NOTIFIED DR. JOHNSON @0615 & HE ORDERED KCL 40MEQ IV OT.
--- NOTE | 2019-02-24 06:56 | NUR ---
SHIFT SUMMARY PT DOES NOT FOLLOW DIRECTION & IS NONVERBAL. HE MOANS, HAS GARBLED SPEECH W/OCCASIONAL "YES,NO." VSS. NO S/S OF N/V, DYSPNEA. ON 2L O2 VIA NC. HAD 4 LIQUID BROWN STOOLS THIS SHIFT. WAS AGITATED, PULLING @WRIST RESTRAINTS & MOANING, KICKING FEET, MEDICATED 2X W/B57 MIXTURE PER ORDERS. RESTRAINTS RENEWED FOR SAFETY OF PT @2218, SINCE HE IS IMPULSIVE & WILL PULL @LINES & TRY TO GET OOB. PROVIDED ORAL CARE. TURNED & REPOSITIONED Q2H. CALL LIGHT IN REACH & BED ALARM PLACED.
--- NOTE | 2019-02-24 09:50 | NUR ---
Physician notified Called Dr. Morley to clarify orders of potassium IV this am. Inquired about the 5 bags of potassium (100 mEq total for all 5). Physician confirmed it was ok.
--- NOTE | 2019-02-24 13:00 | NUR ---
Review of patient with nursing. Will suggest decrease in sedating medications. did oral care and spole with patient. He has significan pain and discomfort to his legs. Will review with physician. will update patients daughter and review a plan of care pt may improve on hospice on hospice care with symptom mangment and being off iv nutrition.kps scale is 30%
--- NOTE | 2019-02-24 13:46 | NUR ---
Physician Notified Dr. Morley notified RE SBP > 200'S. ORDERS RECEIVED.
--- NOTE | 2019-02-24 17:30 | NUR ---
Shift Summary A/Ox1 to self. Pt was lethargic for most of the morning, but had some moments of lucidness where he was able to open eyes and anwer yes/no questions. Speech remianed garbled and incomprehensible. Pt denies pain. Around 1400, pt was observed to be tachypneic so this RN did vital signs: BP 202/109 and Resp 24. Pt was restless and anxious and began to pull on teletry wires and attempted to pull on catheter. Medicated for agitation x 1. Medicated for blood pressure per EMAR. Repeat BP is 152/91 Resp 20, pt is positive for hx of HTN. Pt's oral cavity is crusty, oral care x 4 this shift. Pt remains on 4L O2 via NC saturating >90's with continuous pulse ox in place. No other acute changes this shift.
--- NOTE | 2019-02-24 20:43 | NUR ---
PT REPORTS PAIN/ANXIETY UPON ASSESSMENT I ASKED PT IF HE WAS HAVING ANY PAIN, HE SAID "YES." MEDICATED W/TYLENOL SUPP. PER ORDERS. PT TRYING TO PULL WRIST RESTRAINTS OFF, MOANING GRAONING, KICKING FEET, VERY RESTLESS. ASKED IF HE FELT ANXIOUS & AGITATED & HE STATED "YES." MEDICATED W/ATIVAN, HALDOL & BENYDRYL PER ORDERS. WILL MONITOR FOR EFFECTIVENESS.
[2019-02-25 05:46] LABS: Anion Gap 5 mmol/L (6-16); Blood Urea Nitrogen 22 mg/dL (8-24); Bun/Creatinine Ratio 34.6 (12.0-20.0); CO2, Blood 40 mmol/L (21-32); Calcium, Blood 7.2 mg/dL (8.5-10.1); Chloride, Blood 100 mmol/L (98-108); Creatinine, Blood 0.64 mg/dL (0.60-1.20); Glomerular Filtration Rate >60 (60-); Glucose, Blood 174 mg/dL (70-99); Magnesium, Blood 1.8 mg/dL (1.6-2.4); Potassium, Blood 2.5 mmol/L (3.5-5.5); Sodium, Blood 145 mmol/L (136-145)
--- NOTE | 2019-02-25 06:23 | NUR ---
SHIFT SUMMARY NO ACUTE CHANGES THIS SHIFT. ALERT TO VERBAL STIMULI, ANSWERS SOME "YES/NO" QUESTIONS APPROPRIATELY, OTHERWISE MOANS. WHEN ASKED IF IN PAIN HE STATES "YES" MEDICATED 2X W/TYLENOL SUPPOSITORY. WHEN ASKED IF FEELING AGITATED/ANXIOUS PT REPORTED "YES" WHILE PULLING ON WRIST RESTRAINTS, KICKING LEGS & MOANING. MEDICATED 2X W/ATIVAN, HALDOL & BENYDRYL PER ORDERS. PT REPOSITIONED Q2H PRN FOR COMFORT. CACERES PATENT & DRAINING CLEAR YELLOW URINE. PERFORMED ORAL CARE. RESTRAINTS IN PLACE FOR SAFETY SINCE PT IS HIGH FALL RISK & PULLS AT LINES WHEN AGITATED. CALL LIGHT IN REACH & BED ALARM PLACED.
--- NOTE | 2019-02-25 06:46 | NUR ---
SHIFT SUMMARY GAVE PRN VASOTEC AROUND 0330 SINCE BP WAS ELEVATED @206/118, RECHECKED BP 1 HR LATER & IT WAS STILL ELEVATED @185/97. MEDICATED FOR AGITATION & BP DECREASED TO 150/75. TELE IN PLACE & RUNNING @NSR W/BBB @64.
--- NOTE | 2019-02-25 10:23 | NUR ---
Physician notified Dr. Morley notified of Potassium of 2.5. Orders received.
--- NOTE | 2019-02-25 10:35 | NUR ---
Called patients daughter extensive conversation on patient prognosis and plan of care. Review of labs and vitals and pt mental status and medication needs. Daughter states he has been telling her he is sicker and not wanting to continue care. After careful discussion daughter agrees hospice is good choice. Reviewed comfort care and that if patient improved with better symptom management we can change our plan of care. Review of medications and fluid balance and safety with hospitalist. Hope is with some decreased sedation and some pain management he will be more alert and comfortable. will review diagnosis with hospice liason.
--- NOTE | 2019-02-25 12:48 | NUR ---
Physician notified Called Dr. Morley RE changing frequency of BS checks. Physician des.
--- NOTE | 2019-02-25 13:46 | NUR ---
pt off restraints minimal verbal response. review of plan of care with care managers.
--- NOTE | 2019-02-25 17:36 | NUR ---
Shift Summary A/O to self by name. Pt status is comfort care now. Pt has been restless and constantly moving in bed, pt pulled and broke nasal cannula. He kept pulling on tele wires, stickers replaced constantly. Speech remains garbled. Pt opening eyes when called by name. Hardy patent and draining, attends in place. Pt had bm x 3 (loose, liquidy, foul smelling brown feces). Medicated for pain x 2 per EMAR. Repositioned Q2H. Medicated for anxiety x 1. Pt is a feeder, requires frequent offerings of thin fluids. Medicated once PRN for hypertension. No other changes.
--- NOTE | 2019-02-25 21:08 | NUR ---
CAMERA TECH REPORTS PATIENT LEGS ON SIDE OF BED. RN CAME IN FROM ANOTHER ROOM. PATIENT SITTING ON FLOOR AND HOLDING ON TO BED RAIL WITH HEAD UP. CHARGE NURSE NOTIFIED. SECOND CHARGE CAME INTO ROOM. O2 PUT BACK ON 4L NC THAT FELL OFF. NO INJURIES NOTED. FOUR PERSON TRANSFER BACK INTO BED. VITALS TAKEN. BED ALARM HAD ACTIVATED. BED ALARM RESET. WILL CONTINUE TO MONITOR.
--- NOTE | 2019-02-25 21:35 | NUR ---
HOSPITALIST RIO EPPS NOTIFIED OF FALL. NO INJURIES NOTED. VITALS: T=97.9, HR 65, R=12, BP 134/69, O2 99% ON 4L O2 NC. REPORTS TO CONTINUE TO MONITOR AND IS AVAILABLE IF ANY CHANGE IN CONDITION.
--- NOTE | 2019-02-25 21:44 | NUR ---
PATIENT SLEEPING IN BED. ON 4L O2 NC. BED ALARM ACTIVATED. CAMERA MONITORING. WILL CONTINUE TO MONITOR.
--- NOTE | 2019-02-25 21:55 | NUR ---
PATIENT SLEEPING IN BED.
--- NOTE | 2019-02-25 22:34 | NUR ---
DAUGHTER ANSHUL NOTIFIED OF PATIENT FALL.
--- NOTE | 2019-02-26 00:13 | NUR ---
PATIENT BECAME RESTLESS AFTER FALL EARLIER IN THE SHIFT. HE BEGAN GRABBING AT HIS OXYGEN TUBING AND PULLED IT APART. FINISHER OPERATOR PROVIDER NOTIFIED AND ORDER OBTAINED FOR SOFT WRIST RESTRAINTS AND ROSELYN VEST. ORDER INPUTED INTO EMR AT 0009. RESTRAINTS ON PATIENT.
--- NOTE | 2019-02-26 02:11 | NUR ---
PATIENT SLEEPING IN BED. NO APPARENT PAIN OR AGGITATION AT THIS TIME. PATIENT CONTINUES TO BE IN SOFT WRIST AND VEST RESTRAINT.
--- NOTE | 2019-02-26 06:27 | NUR ---
PATIENT AWAKE AND RESTLESS, MOVING LEGS AND TALKING TO SELF, APPEARS TO BE IN PAIN, MEDICATION GIVEN (SEE EMAR).
--- NOTE | 2019-02-26 06:30 | NUR ---
SHIFT SUMMARY PATIENT SLIPPED OUT OF BED AND ONTO HIS FLOOR AT ABOUT 2050 ON 02/25/19. NO APPARENT INJURIES. PATIENT BECAME AGGITATED AND WAS GRABBING AT TELE AND OXYGEN, PULLED OXYGEN TUBING APART. WEDDING PHOTOGRAPHER PROVIDER APPROVED ORDER FOR SOFT WRIST AND VEST RESTRAINTS WHICH PATIENT IS CURRENTLY IN AND PRN ATIVAN ADMINISTERED. PATIENT'S BLOOD PRESSURE HAS BEEN 176/90-176/114 OVERNIGHT. PRN VASOTEC ADMINISTERED AT 0438 TO HELP REDUCE BLOOD PRESSURE, MOST RECENT READING AT 0619 WAS 174/94. PRN ROXINOL GIVEN TWICE DUE TO APARENT PAIN WHICH WAS EFFECTIVE. PATIENT REMAINS ON TELE IN SINUS RHYTHM AT 66. POWERGLIDE IN RFA FLUSHED AND CAP CHANGED. BED IN LOWEST POSITION WITH BRAKES AND ALARM ON. CALL LIGHT WITHIN REACH. REPORT GIVEN TO ONCOMING RN.
[2019-02-26 06:42] LABS: Anion Gap 4 mmol/L (6-16); Blood Urea Nitrogen 21 mg/dL (8-24); Bun/Creatinine Ratio 29.6 (12.0-20.0); CO2, Blood 40 mmol/L (21-32); Calcium, Blood 8.5 mg/dL (8.5-10.1); Chloride, Blood 99 mmol/L (98-108); Creatinine, Blood 0.71 mg/dL (0.60-1.20); Glomerular Filtration Rate >60 (60-); Glucose, Blood 78 mg/dL (70-99); Potassium, Blood 3.7 mmol/L (3.5-5.5); Sodium, Blood 143 mmol/L (136-145)
--- NOTE | 2019-02-26 17:29 | NUR ---
SHIFT SUMMARY PT SLEEPING DURING SHIFT REPORT THIS AM. ROSELYN VEST AND SOFT WRIST RETAINTS IN PLACE FOR PT SAFETY. PT OBTUNDED WITH GARBLED SPEECH AT BEST. HAS OPENED EYES A COUPLE OF TIMES TO VERBAL AND NOXIOUS STIMULI. WILL NOT EAT OR DRINK FOR THE MOST PART. DIRECTOR INDUSTRIAL NURSING WAS ABLE TO GET PT TO DRINK 1 ENSURE AND 1 CUP OF OJ FOR BREAKFAST, AFTER MULTIPLE ATTEMPTS FROM STAFF. PT WILL NOT SWALLOW OR EAT FOOD, EVEN WHEN PUT IN HIS MOUTH. HE DOES NOT KNOW WHAT TO DO AND WILL NOT FOLLOW ANY INSTRUCTIONS AT ALL. DR ESCOBEDO IN TO SEE PT THIS AM. DISCUSSED CBG'S AND INSULIN WITH PT NOT EATING. PT REPOSITIONED THRU OUT THE DAY, ALWAYS BECOMING AGITATED WHEN REMOVING RESTRAINTS. SPEECH IS GARBLED. BP MEDS GIVEN THIS AM. TELE MX D/C'D. MEDS ADJUSTED AFTER TELE D/C'D. DR ESCOBEDO REQUESTED ATIVAN TO BE HELD IF POSSIBLE TODAY AND TONIGHT, IN ORDER TO SEE IF PT WILL BECOME MORE AWAKE. PT IS ORDERED COMFORT CARE WITH POSSIBLE D[facility]C [facility] IF BED AVAILABLE. 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 BED ALARM ON FOR SAFETY.
--- NOTE | 2019-02-26 19:43 | NUR ---
192: ASSUMED CARE OF PATIENT; PATIENT IN BED IN ROSELYN AND SOFT WRIST RESTRAINTS. PT HAS A MARIELY CACERES CHECKED. 194: PT INCREASINGLY RESTLESS, CALLING OUT, SAYS HES UNCOMFORTABLE WHEN ASKED. WAITING ON VITALS THEN WILL SEE ABOUT SOMETHING FOR PAIN FOR THIS PATIENT. BED LOW AND LOCKED
[2019-02-27 07:37] LABS: Triglycerides 190 mg/dL (30-160)
--- NOTE | 2019-02-27 17:22 | NUR ---
SHIFT SUMMARY PT RESTLESS AND SLIGHTLY AGITATED AT START OF SHIFT. MORE AWAKE THIS AM, BUT SPEECH MOSTLY NONSENSICAL. PT MEDICATED FOR PAIN, PER EMAR WHICH SEEMED TO BE EFFECTIVE FOR A SHORT WHILE. PT ABLE TO DRINK ALOT OF JUICE AND ENSURE FOR BREAKFAST. DID NOT DRINK MUCH FOR LUNCH THOUGH. PT HAVING SEVERAL LOOSE STOOLS EARLY THIS AM, BUT NONE FURTHER THRU OUT THE TODAY. PALLATIVE CARE RN IN TO SEE PT EARLY, WELL DR ESCOBEDO. PT MADE COMFORT CARE; MEDICATIONS ADJUSTED. PT C/O NAUSEA, FROM RM SPINNING. MEDICATED PER EMAR FOR NAUSEA, WHICH SEEMED TO HELP CALM PT. PT BECOMES AGITATED OFF AND ON THRU OUT THE DAY, CONFUSED AND DISORIENTED. RESTRAINT ORDER FOR ROSELYN VEST AND SOFT WRIST'S OBTAINED FOR PT SAFETY FOR ONE MORE DAY. PT SEEMED TO BE CALMER THIS EVENING THAN IN THE AM. WILL CONTINUE TO MONITOR. BED ALARM ON FOR SAFETY.
--- NOTE | 2019-02-28 04:02 | NUR ---
SHIFT SUMMARY- PT. ON COMFORT CARE, ANXIOUS AND AGITATED ON/OFF DURING THE NIGHT. MEDICATED PER EMAR. PT. SLEPT ON/OFF T/O THE SHIFT, HAVING A LOT OF SECRETIONS. PERFORMED ORAL CARE AND SUCTIONED PRN. PT. REPOSITIONED PRN FOR COMFORT, HAD 1 LOOSE BM THIS AM. ROSELYN VEST AND WRISTS RESTRAINTS IN PLACE PER ORDER. WILL CONT TO MONITOR.
--- NOTE | 2019-02-28 09:00 | NUR ---
FISHING CAPTAIN NOTE- PT RESP LABORED AND FEW 4 BREATHS A MINUTE GASPING AND MOIST. RIGHT ARM LEAKING FLUID BEDDING TO BE CHANGED SHORTLY, WHEN PT IS REPOSITIONED.
--- NOTE | 2019-02-28 10:00 | NUR ---
WHILE REPOSITIONING PT TO CHANGE BEDDING PT VOMITED BROWN LIQUID STOOL ORAL SUCTION SWABBING COMPLETED WELL BED BATH. CALLED PALLIATIVE CARE RN MICHAEL AND SHE CAME TO SEE THE PT.
--- NOTE | 2019-02-28 10:40 | NUR ---
Clinical Visit: Pt moaning. Per nursing, he has vomited stool this morning during turning. Nurse requests NG tube for comfort; he has also had continuous liquid stool, requiring many attends changes. Belly is distended. Secretions noted as well. Call placed to Dr. Morley. Orders placed for NG and scopolomine patch. NG to low intermitent suction. No other concerns at this time. Will remain available for symptom managment.
--- NOTE | 2019-02-28 10:44 | NUR ---
GI ASSESSMENT NG tube placed d/t abdominal distension and stool coming out of oral and nasal cavities.
--- NOTE | 2019-02-28 11:30 | NUR ---
PT MUCH MORE COMFORTABLE AFTER THE NG TUBE WAS PLACED, 600ML OF BROWN LIQUID THAT IS GETTING DARKER BROWN SUCTION CONTINUES. CHANGED CANISTER AND ADDED ADDITIONAL PILLOWS UNDER THE PT ARMS. PT SEEMED TO RELAX FARTHER. TOOK TWO SHUDDERING BREATHS AND SIGHED. PT SEEMED AT PEACE AND CALM NO SIGN OF PAIN OR ANXIETY. TIME OF 1130. LAMP TESTER AND INSPECTOR NOTIFIED, BEDSIDE RN NOTIFIED, PALLIATIVE CARE NOTIFIED, NURSING BUILDING PERFORMANCE SPECIALIST NOTIFIED, DR ESCOBEDO NOTIFIED FAMILY BEING NOTIFIED NOW BY TELEPHONE.
--- NOTE | 2019-02-28 11:45 | NUR ---
Powerglide, morales, and NG-tube removed. 300mL liquidy brown stool from NG canister.
--- NOTE | 2019-02-28 15:31 | NUR ---
Daughter Laina notified this RN RE choice of [facility] as their preference for home. Franklin from [facility] retrieved body @ [phone]. Belongings are held in Security, Laina notified of belongings and stated she will pick it up when she arrives into town.
--- NOTE | 2019-02-28 15:44 | NUR ---
Provided prayer at [facility].
== END 2019-02-28 11:30 | DRG 871 ==
LOC: ER 17:12 → ICUW 20:38 → ERHOLD 20:38 → ICUW 22:12 → PCU 02-12 17:58 → MEDS 02-16 16:22 → ENPENDDIS 02-28 11:30
PROVIDERS: Emergency Medicine; Hospitalist; Internal Medicine; Internal Medicine Critical Care Medicine; Internal Medicine Pulmonary Disease; ADMIT Internal Medicine
PROC: 02HV33Z Insertion of Infusion Device into Superior Vena Cava, Percutaneous Approach (ICD-10-PCS; principal; 2019-01-19)
DX: A41.02 Sepsis due to Methicillin resistant Staphylococcus aureus (principal); G93.41 Metabolic encephalopathy; J96.01 Acute respiratory failure with hypoxia; I50.23 Acute on chronic systolic (congestive) heart failure; J15.212 Pneumonia due to Methicillin resistant Staphylococcus aureus; I21.A1 Myocardial infarction type 2; F10.231 Alcohol dependence with withdrawal delirium; J44.1 Chronic obstructive pulmonary disease with (acute) exacerbation; I42.0 Dilated cardiomyopathy; J44.0 Chronic obstructive pulmonary disease with (acute) lower respiratory infection; F10.259 Alcohol dependence with alcohol-induced psychotic disorder, unspecified; E87.0 Hyperosmolality and hypernatremia; Z51.5 Encounter for palliative care; R65.20 Severe sepsis without septic shock; I11.0 Hypertensive heart disease with heart failure; E87.6 Hypokalemia; E83.42 Hypomagnesemia; E83.39 Other disorders of phosphorus metabolism; G47.33 Obstructive sleep apnea (adult) (pediatric); M10.9 Gout, unspecified; F17.210 Nicotine dependence, cigarettes, uncomplicated
CPT/HCPCS: 0099U; 31720; 36415; 36569; 36600; 51702; 70450; 71045; 71046; 74018; 80048; 80053; 80061; 80069; 80202; 81001; 81003; 82140; 82330; 82550; 82803; 82947; 83036; 83605; 83735; 83880; 84100; 84132; 84145; 84439; 84443; 84478; 84484; 85025; 85027; 85610; 87040; 87070; 87077; 87081; 87186; 87205; 92526; 92610; 93005; 93010; 93308; 93321; 93971; 94640; 94660; 94760; 94762; 96365; 97110; 97112; 97163; 97166; 97530; 97535; 99285-25; C1751; C8929; G0480; J0360; J0610; J0690; J0692; J1120; J1200; J1630; J1644; J1650; J1815; J1940; J1956; J2060; J2405; J2920; J2930; J3010; J3370; J3411; J3475; J3480; J7030; J7040; J7050; J7060; J7070; P9046; Q0163; Q9957